=== PATIENT | female | born 1985 | race Caucasian/White ===

== ENCOUNTER 2021-10-09 10:45 | Outpatient (CLI) | payer BC, SELFPAY ==
--- NOTE | 2021-10-09 11:00 | CRLHL7_ITS ---
For Patients: As a result of the Century Cures Act, medical imaging exams and procedure reports are released immediately into your electronic medical record. You may view this report before your referring provider. If you have questions, please contact your health care provider. INDICATION: CHECK GROWTH, SDP, PT ON LOVENOX COMPARISON: 04/09/2021 TECHNIQUE: Real time stock[place] scale imaging of the fetus was performed. FINDINGS: Sonographic imaging demonstrates a single living intrauterine gestation. Fetus demonstrates a regular cardiac rate of 4.8 beats per minute. Fetus has a vertex position. The placenta lies posteriorly. Amniotic fluid volume appears normal and there is a single deepest vertical pocket: 4.8 cm. The estimated weight is 3299gm which lies at the 79th %. BPD 94th percentile. HC 77th percentile. AC 73rd percentile. FL 77th percentile. The HC/AC ratio measures 1.02 range (0.89-1.06). IMPRESSION: Sonographic gestational age 38 weeks 1 day and sonographic due date 10/1921. Sonographic age 9 days ahead of the clinical age. Estimated weight 79th percentile. Abdominal circumference 73rd percentile. Dictated by Jose Robertson MD @ 10/09/2021 12:01:11 PM (Electronically Signed)
== END 2021-10-09 10:46 | disposition home or self-care (01) ==
LOC: US 10:47
PROVIDERS: Visit Provider Obstetrics & Gynecology
DX: Z34.93 Encounter for supervision of normal pregnancy, unspecified, third trimester (principal); Z3A.38 38 weeks gestation of pregnancy
CPT/HCPCS: 76816

== ENCOUNTER 2021-10-09 12:25 | Outpatient (CLI) | payer BC, SELFPAY ==
[2021-10-09 13:18] LABS: Amphetamine Screen Urine Negative (Negative); Barbiturate Screen Urine Negative (Negative); Benzodiazepines Screen Urine Negative (Negative); Cannabinoid Screen Urine Negative (Negative); Cocaine Screen Urine Negative (Negative); Methadone Screen Urine Negative (Negative); Methamphetamines Screen Urine Negative (Negative); Opiate Screen Urine Negative (Negative); Oxycodone Screen Urine Negative (Negative); Phencyclidine Screen Urine Negative (Negative); Tricyclic Antidepressant Urine Negative (Negative)
== END 2021-10-09 12:26 | disposition home or self-care (01) ==
PROVIDERS: Visit Provider Obstetrics & Gynecology
DX: Z34.93 Encounter for supervision of normal pregnancy, unspecified, third trimester (principal); Z3A.36 36 weeks gestation of pregnancy
CPT/HCPCS: 80306; 87081; 87653

== ENCOUNTER 2021-10-16 | Outpatient (CLI) | payer BC, SELFPAY ==
[2021-10-16 00:08] VITALS: PULSE 93; O2SAT 98
[2021-10-16 00:09] VITALS: RESP 18; TEMP 36.5
[2021-10-16 00:13] VITALS: PULSE 89; O2SAT 97
[2021-10-16 00:18] VITALS: BP 107/66; PULSE 92
[2021-10-16 01:02] LABS: Amnisure Rom* Negative
--- NOTE | 2021-10-16 01:41 | PC.OBNST ---
NST Note NST Note Start: 10/16/21 00:13 Freq: ONCE Status: Active Protocol: Document 10/16/21 01:15 MMB (Rec: 10/16/21 01:40 MMB [id number]) NST Note 1 Para (# of births) 0 EDC 10/31/21 Patient Presented with Complaint(s) of Leaking fluid Reactive Yes Appropriate for Gestational Age Yes TIARA Nguyen RNC Date 10/16/21 Reactive Yes Appropriate for Gestational Age Yes TIARA Neely RN Date 10/16/21 OB NST charge Yes Provider Evaluation of EFM Strip: Reactive: [] Appropriate for Gestational Age: [] Comments:
--- OUTSIDE RECORDS SUMMARY | 2021-11-12 11:01 | XMS_ITS | Encounter Summary ---
:1985 Author Organization [place] Address [address] [place] [address] Care Team Providers Name Role Phone Bree Gordillo MD Unavailable Reason for Visit Reason Onset Date Comments Results 05/07/2021 carrier screen Encounter Details Date Type Department Care Team Description 05/07/2021 Telephone [facility] Dee Cohen Resu lts (carrier Maternal GC screen) Medicine Center [address] [place] [address] [address] [place] [phone] (Wo rk) Social History Tobacco Use Types Packs/Day Years Used Date Never Assessed Sex Assigned at Date Recorded Not on file COVID-19 Exposure Response Date Recorded In the last month, have you been in contact with No / Unsure 04/23/2021 12:34 PM FIXED ASSETS ACCOUNTANT someone who was confirmed or suspected to have Coronavirus / COVID-19? documented as of this encounter Miscellaneous Notes Telephone Encounter - Dee Cohen, GC - 05/08/2021 1:53 PM CST May 08, 2021 Rosalinda returned my call to let me know that she would like to wait until her partner's carrier screening results have returned before doing any additional workup related to potential health implicationsfor herself. She may be interested in a genetics referral in the future to discuss the implications on her own health, but would prefer to focus on the potential risks to the at this time. Noreferral will be placed at this time, but I let her know that this option will remain available going forward if she is interested at any point. Dee Cohen [facility] Licensed Genetic Counselor [facility] Maternal Medicine [email or web address] D ASSETS ACCOUNTANT Telephone Encounter - Dee Cohen GC - 05/08/2021 1:36 PM CST May 08, 2021 I left a voicemail for Rosalinda with recommendations from the General Genetics team for follow-up related to Rosalinda's hypophosphatasia variant. Recommendation was made for a genetic counseling visit to discuss the potential implications of this result on Rosalinda's health and recommended lab work. Asked Rosalinda to call me back if she would like me to put in this referral. Dee Cohen [facility] Licensed Genetic Counselor [facility] Maternal Medicine [email or web address] D ASSETS ACCOUNTANT Telephone Encounter - Dee Cohen GC - 05/07/2021 8:52 AM CST May 07, 2021 Called Rosalinda to discuss her expanded carrier screening results. Rosalinda was found to be a carrier for 2 conditions on the panel, described below. Most of the conditions on the carrier screening panel are inherited in an autosomal recessive fashion. Every individual has two copies of the gene that is responsible for this condition, and if someonehas a change or mutation that impacts how one copy of the gene functions, they are called a carrier for the condition. If someone has two copies of the gene that have a harmful change, they are affected with the condition. If two people who are carriers for the same condition have children, there is achance for their children to be affected. Each parent has a 50% chance for passing on their copy of the gene with a mutation, so there is a 25% chance for each to get two copies of the mutation and be affected, a 50% chance for each to be an unaffected carrier, and a 25% chance to be unaffected with two normal copies of the gene. 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 Biallelic pathogenic variants in GALT are associated with galactosemia. Galactosemia is an inherited condition that reduces an individual's ability to metabolize galactose,a simple sugar found in milk. Treatment is available for galactosemia by eliminating milk from the affected individual's diet. It is crucial this diet change occurs as early as possible to reduce the chance of intellectual disability and life-threatening complications. For this reason galactosemia is screened for in the [place] Screening Program. Even with treatment, children can still develop cataracts, speech problems, stunted growth and motor function, and learning disabilities, and most females will eventually develop menstrual irregularities and go through premature menopause. The specific variant Rosalinda carries, called the Haynes variant, is a mild variant. Individuals who inherit one Haynes variant and one disease-causing variant in GALT have a mild form of galactosemia known as Haynes galactosemia. Individuals with Haynes galactosemia can tolerate higher levels of galactose and any infants may be asymptomatic. Individuals with two Haynes variants may have mild enzyme deficiency but are not clinically affected. Reproductive risk for the couple's depends on Chad's carrier status. If Chad were a carrier of a pathogenic variant in GALT, the would have a 1 in 4 chance of having Haynes galactosemia. The lees-ethnic carrier frequency for galactosemia is 1 in 100. 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 Variants in ALPL are associated with hypophosphatasia, a condition that can be inherited in an autosomal recessive or autosomal dominant manner. Hypophosphatasia refers to a spectrum of conditions caused by impaired phosphorus regulation resulting in hypomineralization of bones and teeth. There are several subtypes which differ by severity and age of onset. hypophosphatasia presents with severe skeletal defects, seizures, and respirat ory insufficiency and is generally lethal. Infantile hypophosphatasia presents by 6 months of age and is associated with skeletal abnormalities, fractures, failure to thrive, hypercalcemia, kidney damage, breathing problems, seizures, and developmental delays. Infantile hypophosphatasia can result in in infancy. Childhood hypophosphatasia presents after 6 months and is highly variable, with similar but less severe skeletal manifestations. Adult onset hypophosphatasia may result in stress fractures and early loss of adult dentition. Odontohypophosphatasia is characterized by premature tooth loss without skeletal abnormalities. Autosomal recessive hypophosphatasia is most commonly associated with the earlier and more severe forms. Autosomal dominant forms are generally associated with adult onset hypophosphatasia or odontohypophosphatasia. The reproductive risk for the depends on Chad's carrier status. The lees-ethnic carrier frequency of hypophosphatasia is 1 in 150. If Chad were a carrier of hypophosphatasia, there would be a 1 in 4 chance that the inherited an autosomal recessive form of hypophosphatasia. Rosalinda is at increased risk for features of adult-onset hypophosphatasia. She denies any history of fractures or dental abnormalities. This result can be shared with her dentist and primary care provider. I will also reach out to the pediatrics genetics providers to ask whether any additional follow upis recommended for Rosalinda. 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 Pseudodeficiency alleles are not known to be associated with disease. Individuals with pseudodeficiency alleles can exhibit false positive results on biochemical tests such as screen. However, Krabbe disease and m etachromatic leukodystrophy are not on the [place] screen. Reproductive risk for the above conditions depends on Rosalinda's partner Chad's carrier status. Partner testing is available for Chad. Rosalinda shared that she and Chad would like to proceed with carrier screening for him. I will coordinate a genetic counseling-only visit for Chad. At a minimum, the couple's children will have a 50% chance of being an unaffected carrier of the aforementioned conditions. Genetic counseling for the couple's children is recommended when they are of reproductive age. We discussed that Rosalinda can share this information with relatives if she feels comfortable. Siblingsof Rosalinda would be at a 50% chance of also being a carrier for the same condition. At Rosalinda's request, a copy of her carrier screen report was emailed to . Plan: A genetic counseling only visit will be scheduled for Rosalinda's partner, Ranjana Hanson, caitlynate carrier screening for him. Dee Cohen, [facility] Licensed Genetic Counselor [facility] Maternal Medicine [email or web address] D ASSETS ACCOUNTANT documented in this encounter Plan of Treatment Not on filedocumented as of this encounter Visit Diagnoses Not on filedocumented in this encounter Care Teams Wild Life Manager Relationship Specialty Start Date End Date Bree Gordillo MD Assigned OBGYN Provider 05/05/[address] [place] [address] [address] [place] [address] documented as of this encounter
--- OUTSIDE RECORDS SUMMARY | 2021-11-12 11:01 | XMS_ITS | Encounter Summary ---
:1985 Author Organization [facility] Address [address] [place] [address] Care Team Providers Name Role Phone Bree Gordillo MD Unavailable No Ref-Primary, Physician Primary Care Provider [phone] Reason for Visit Reason Onset Date Comments Results 05/27/2021 partner's carrier sc catia (negative) Encounter Details Date Type Department Care Team Description 05/27/2021 Telephone [facility] Dee Cohen, Resu lts (partner's Maternal GC carrier screen Medicine Center [address] [facility] (negat aqsim)) [place] [address] [place], [place] [address] [place], [place] [phone] (Wo rk) Social History Tobacco Use Types Packs/Day Years Used Date Never Assessed Sex Assigned at Date Recorded Not on file documented as of this encounter Miscellaneous Notes Telephone Encounter - Dee Cohen, GC - 05/27/2021 9:47 AM CST May 27, 2021 Called Rosalinda and left detailed voicemail with her partner, Chad's carrier screen result per plan established at the time of Chad's visit. Consent to communicate form providing permission to share Chad's results with Rosalinda has been signed and is scanned into Chad's chart. Rosalinda previously??underwent [facility] Comprehensive Carrier Screen panel for 289 genes as part of her management and was found to be a carrier for galactosemia (Haynes variant, GALT c.-119_-116del (non-coding)) and hypophosphatasia (ALPL??c.571G>A (p.[id number])). Chad underwent carrier screening for the galactosemia and hypophosphatasia only (GALT and ALPL genes only). Chad's carrier screen returned negative for pathogenic variants in GALT and ALPL. Based on this result, Rosalinda's is at low risk of these conditions. The residual risk that the is affected by galactosemia is 1 in 39,600 and the residual risk that the is affected by autosomal recessive hypophosphatasia is 1 in 11,920. Rosalinda's will have a 50% chance of inheriting her ALPL variant. It is possible that this could be associated with features of adult-onset hypophosphatasia or odontohypophosphatasia. Additionally, we have previously discussed that a referral to hypophosphatasia clinic and additional workup for Rosalinda is available if she wishes to pursue this at any point. No further screening or testing for the couple or a future is indicated. Again, while the chances of the aforementioned conditions are low, because the detection rate of testing is not 100%, if there is ever concern for symptoms in the couple's children in the future, referral to an appropriate practitioner for evaluation is recommended. The couple's children will have a 50% chance of being an unaffected carrier of the aforementioned conditions. Genetic counseling for the couple's children is recommended when they are of reproductive age. A copy of this result will be available in [facility]. Dee Cohen, [facility] Licensed Genetic Counselor [facility] Maternal Medicine [email or web address] documented in this encounter Plan of Treatment Not on filedocumented as of this encounter Visit Diagnoses Not on filedocumented in this encounter Care Teams Manager Forms Relationship Specialty Start Date End Date No Ref-Primary, Physician PCP - General 05/15/21 Bree Gordillo MD Assigned OBGYN Provider 05/05/[address] [facility] [address] [place] [address] documented as of this encounter
--- OUTSIDE RECORDS SUMMARY | 2021-11-12 11:01 | XMS_ITS | Encounter Summary ---
:1985 Author Organization [place] Address [address] [place] [address] Care Team Providers Name Role Phone Bree Gordillo MD Unavailable No Ref-Primary, Physician Primary Care Provider [phone] Encounter Details Date Type Department Care Team Description 06/04/2021 Travel Social History Tobacco Use Types Packs/Day Years Used Date Never Assessed Sex Assigned at Date Recorded Not on file COVID-19 Exposure Response Date Recorded In the last month, have you been in contact with No / Unsure 06/04/2021 10:50 AM CORPORATE DEVELOPMENT OFFICER someone who was confirmed or suspected to have Coronavirus / COVID-19? documented as of this encounter Plan of Treatment Not on filedocumented as of this encounter Visit Diagnoses Not on filedocumented in this encounter Care Teams Molded Candles Wicker Relationship Specialty Start Date End Date No Ref-Primary, Physician PCP - General 05/15/21 Bree Gordillo MD Assigned OBGYN Provider 05/05/[address] [facility] [address] [place], [place] [address] documented as of this encounter
--- OUTSIDE RECORDS SUMMARY | 2021-11-12 11:01 | XMS_ITS | Encounter Summary ---
:1985 Author Organization [place] Address [address] [place] [address] Care Team Providers Name Role Phone Bree Gordillo MD Unavailable No Ref-Primary, Physician Primary Care Provider [phone] Reason for Visit Reason Comments Ultrasound L2-AMA Encounter Details Date Type Department Care Team Description 06/04/2021 Office Visit [facility] Bree Gordillo MD [address] [place] [address] [place], [place] [id number] AMA (advanced maternal Maternal Annel Miranda MD [address] [place] [address] [place] [address] age) primigravida 35+, Medicine Center [facility] (Primary Dx) [address] [place], [place] [address] Social History Tobacco Use Types Packs/Day Years Used Date Never Assessed Sex Assigned at Date Recorded Not on file COVID-19 Exposure Response Date Recorded In the last month, have you been in contact with No / Unsure 06/04/2021 10:50 AM PHILOSOPHY INSTRUCTOR someone who was confirmed or suspected to have Coronavirus / COVID-19? documented as of this encounter Progress Notes Annel Miranda MD - 06/04/2021 11:30 AM CST Please see full imaging report from ViewPoint program under imaging tab. Annel Miranda MD Maternal Medicine OSOPHY INSTRUCTOR documented in this encounter Plan of Treatment Not on filedocumented as of this encounter Visit Diagnoses Diagnosis AMA (advanced maternal age) primigravida 35+, second trimester - Primary documented in this encounter Care Teams Oracle Etl Developer Relationship Specialty Start Date End Date No Ref-Primary, Physician PCP - General 05/15/21 Bree Gordillo MD Assigned OBGYN Provider 05/05/[address] [address] documented as of this encounter
--- OUTSIDE RECORDS SUMMARY | 2021-11-12 11:01 | XMS_ITS | Clinical Summary ---
:1985 Author Organization [place] Address [address] [place] [address] Care Team Providers Name Role Phone Bree Gordillo MD Unavailable No Ref-Primary, Physician Primary Care Provider [phone] Allergies No known active allergies Medications Medication Sig Dispensed Refills Start Date End Date Status Vit-Fe Take 1 tablet by 0 Active Fumarate-FA (PNV mouth daily PLUS MULTIVITAMIN) 27-1 MG TABS per tablet aspirin (ASA) 81 MG Take 81 mg by mouth 0 Active chewable tablet daily calcium-vitamin D Take 1 tablet by 0 Active 500-125 MG-UNIT TABS mouth 2 times daily enoxaparin Inject 0.4 mLs (40 24 mL 3 04/23/2021 Active ANTICOAGULANT mg) Subcutaneous (LOVENOX) 40 daily MG/0.4ML syringeIndications: related condition, antepartum, Personal history of DVT (deep vein thrombosis) Social History Tobacco Use Types Packs/Day Years Used Date Never Assessed Estimated Date of Delivery Comments Yes 10/31/2021 Based on Ultrasound Sex Assigned at Date Recorded Not on file Plan of Treatment Health Maintenance Due Date Last Done Comments ADVANCE CARE PLANNING 1985 ANNUAL REVIEW OF HM ORDERS 1985 PREVENTIVE CARE VISIT 1985 HIV SCREENING 2000 HEPATITIS C SCREENING 09/01/2003 PAP 2006 DTAP/TDAP/TD IMMUNIZATION 07/06/2019 07/05/2009 (2 - Td or Tdap) PHQ-2 (once per calendar 04/06/2021 year) MATERNAL SCREENING 05/09/2021 OBGCT (OB) 07/11/2021 REPEAT ANTIBODY SCREEN (OB) 08/08/2021 GROUP B STREP SCREENING 10/03/2021 INFLUENZA VACCINE Completed 01/17/2021, 01/07/2020, 03/26/2009, Additional history exists COVID-19 Vaccine Completed 04/14/2021, 06/21/2020, 05/25/2020 HEPATITIS B IMMUNIZATION Aged Out No long er eligible based on patient 's age to complete this topic IPV IMMUNIZATION Aged Out No longer eligi ble based on patient 's age to complete this topic MENINGITIS IMMUNIZATION Aged Out No longe r eligible based on patient 's age to complete this topic Pneumococcal Vaccine: Aged Out No longer eligible Pediatrics (0 to 5 Years) based on patient's age and At-Risk Patients (6 to to co mplete this topic 64 Years) Insurance Payer Benefit Plan / Subscriber ID Effective Dates Phone Addre ss Type Group [place] [id number] 2021-Prese [phone] [address] [address] Indemnity nt 0 [place] [address] Care Teams Supervisor Elementary Education Relationship Specialty Start Date End Date No Ref-Primary, Physician PCP - General 05/15/21 Bree Gordillo MD Assigned OBGYN Provider 05/05/[address] [place] [address] [place], [place] [address]
--- OUTSIDE RECORDS SUMMARY | 2021-11-12 11:01 | XMS_ITS | Encounter Summary ---
:1985 Author Organization [place] Address [address] [place] [address]. [place] [address] Care Team Providers Name Role Phone Bree Gordillo MD Unavailable Encounter Details Date Type Department Care Team Description 05/07/2021 Orders Only [facility] Lamberto, Screening for genetic Explorer Pediatric MD Klarissa disease carrier Specialty Clinic [address] [place] [address] status (Primary Dx) [facility] [place], [place] [address] [place] [address] [place] [address] Social History Tobacco Use Types Packs/Day Years Used Date Never Assessed Sex Assigned at Date Recorded Not on file COVID-19 Exposure Response Date Recorded In the last month, have you been in contact with No / Unsure 04/23/2021 12:34 PM SUPERVISOR SHEARING someone who was confirmed or suspected to have Coronavirus / COVID-19? documented as of this encounter Plan of Treatment Not on filedocumented as of this encounter Visit Diagnoses Diagnosis Screening for genetic disease carrier st [facility] - Primary documented in this encounter Care Teams Hot Knife Cutter Relationship Specialty Start Date End Date Bree Gordillo MD Assigned OBGYN Provider 05/05/[address] [place] [address] [place] [address] documented as of this encounter
--- OUTSIDE RECORDS SUMMARY | 2021-11-12 11:01 | XMS_ITS | Encounter Summary ---
:1985 Author Organization [place] Address [address] [place] [address]. [place] [address] Care Team Providers Name Role Phone Unavailable Primary Care Provider Unavailable Encounter Details Date Type Department Care Team Description 04/23/2021 [facility] Alonso [facility] Latisha [address] [place] [address] screening encounter; [facility] Emily Erickson MD [address] [place] [address] Primigravida of advanced maternal age in first trimester; [address] [place] [address] related [place], [place] [address] Social History Tobacco Use Types Packs/Day Years Used Date Never Assessed Sex Assigned at Date Recorded Not on file COVID-19 Exposure Response Date Recorded In the last month, have you been in contact with No / Unsure 04/23/2021 12:34 PM DEGREASER OPERATOR someone who was confirmed or suspected to have Coronavirus / COVID-19? documented as of this encounter Plan of Treatment Not on filedocumented as of this encounter Procedures Procedure Name Priority Date/Time Associated Comments Diagnosis INVITAE CARRIER Routine 04/23/2021 3:03 PM screening Results for this SCREENING DEGREASER OPERATOR encounter procedure are in Primigravida of the results advanced maternal section. age in first trimester CARDIOLIPIN ALPA IGG Routine 04/23/2021 3:03 PM relat ed Results for this AND IGM DEGREASER OPERATOR condition, procedure are i n antepartum the results section. BETA 2 GLYCOPROTEIN 1 Routine 04/23/2021 3:03 PM rel ated Results for this ANTIBODY IGM DEGREASER OPERATOR condition, procedure are i n antepartum the results section. BETA 2 GLYCOPROTEIN 1 Routine 04/23/2021 3:03 PM rel ated Results for this ANTIBODY IGG DEGREASER OPERATOR condition, procedure are i n antepartum the results section. LUPUS ANTICOAGULANT Routine 04/23/2021 3:03 PM relat ed Results for this PANEL DEGREASER OPERATOR condition, procedure are i n antepartum the results section. documented in this encounter Results Beta 2 Glycoprotein 1 Antibody IgG (04/23/2021 3:03 PM DEGREASER OPERATOR) athologist Signature Beta 2 1.2 <7.0 U/mL 04/24/2021 [facility] Glycoprotein 1 4:17 PM DEGREASER OPERATOR CORE/PROT/END Antibody IgG O Comment: Negative Specimen Anatomical Collection Method / Collection Time Recei corey Time (Source) Location / Volume Laterality Blood STRUCTURE OF LEFT Venipuncture / 04/23/2021 3:03 04/23 3:27 UPPER LIMB / Unknown PM DEGREASER OPERATOR PM DEGREASER OPERATOR Unknown Bree Gordillo MD LAB - BLOOD ORDERABLES Performing Organization Address City/State/ZIP Code Phon e Number SPECIALTY CORE/PROT/ENDO [facility] [place] [address] Core/Prot/Endo [address] [facility] [address] [facility], Room 3-580 Beta 2 Glycoprotein 1 Antibody IgM (04/23/2021 3:03 PM DEGREASER OPERATOR) athologist Signature Beta 2 <2.4 <7.0 U/mL 04/24/2021 [facility] Glycoprotein 1 4:14 PM DEGREASER OPERATOR CORE/PROT/END Antibody IgM O Comment: Negative Specimen Anatomical Collection Method / Collection Time Recei corey Time (Source) Location / Volume Laterality Blood STRUCTURE OF LEFT Venipuncture / 04/23/2021 3:03 04/23 3:27 UPPER LIMB / Unknown PM DEGREASER OPERATOR PM DEGREASER OPERATOR Unknown Bree Gordillo MD LAB - BLOOD ORDERABLES Performing Organization Address City/State/ZIP Code Phon e Number SPECIALTY CORE/PROT/ENDO [facility] [place] [address] Core/Prot/Endo [address] [facility] [address] Building, Room 3-580 Cardiolipin Alpa IgG and IgM (04/23/2021 3:03 PM DEGREASER OPERATOR) [facility] Method Time Signature Cardiolipin Alpa <2.0 <10.0 04/24/2021 [facility] IgG Instrument GPL-U/mL 4:17 PM DEGREASER OPERATOR CORE/PROT/END Value O Cardiolipin Negative Negative 04/24/2021 [facility] Antibody IgG 4:17 PM DEGREASER OPERATOR CORE/PROT/END O Cardiolipin Alpa 6.1 <10.0 04/24/2021 [facility] IgM Instrument MPL-U/mL 4:17 PM DEGREASER OPERATOR CORE/PROT/END Value O Cardiolipin Negative Negative 04/24/2021 [facility] Antibody IgM 4:17 PM DEGREASER OPERATOR CORE/PROT/END O Specimen Anatomical Collection Method / Collection Time Recei corey Time (Source) Location / Volume Laterality Blood STRUCTURE OF LEFT Venipuncture / 04/23/2021 3:03 04/23 3:27 UPPER LIMB / Unknown PM DEGREASER OPERATOR PM DEGREASER OPERATOR Unknown Bree Gordillo MD LAB - BLOOD ORDERABLES Performing Organization Address City/State/ZIP Code Phon e Number [facility] CORE/PROT/ENDO [facility] [place] [place] [address] Core/Prot/Endo [address] [facility] [address] Building, Room 3-580 Lupus Anticoagulant Panel (04/23/2021 3:03 PM DEGREASER OPERATOR) [facility] Method Time Signature INR 1.02 0.85 - [facility] 1.15 2 2:34 PM COAGULATION DEGREASER OPERATOR Thrombin Time 15.3 13.0 - [facility] 19.0 2 2:34 PM COAGULATION Seconds DEGREASER OPERATOR PTT Ratio 0.92 <1.21 [facility] 2 2:34 PM COAGULATION DEGREASER OPERATOR DRVVT Screen 1.06 <1.21 [facility] Ratio 2 2:34 PM COAGULATION DEGREASER OPERATOR Lupus Result Negative Negative [facility] 2 2:34 PM COAGULATION DEGREASER OPERATOR Lupus The INR is normal. [facility] Interpretation APTT ratio is normal. ?? 2 2:34 PM COAGULATION DRVVT Screen ratio is normal. DEGREASER OPERATOR Thrombin time is normal. NEGATIVE TEST; A LUPUS ANTIC OAGULANT WAS NOT DETECTED IN THIS SPECIMEN WITHIN THE LIMITS OF THE TESTING REPERTOIRE. If the clinical picture is s trongly suggestive of an antiphospholipid syndrome, recommend anticardiolipin and unlz-9-izdnqddixing (IgG and IgM) antibody tests. Graciela Kim MD, PhD Physicians Specimen Anatomical Collection Method / Collection Time Recei corey Time (Source) Location / Volume Laterality Blood STRUCTURE OF LEFT Venipuncture / 04/23/2021 3:03 04/23 3:27 UPPER LIMB / Unknown PM DEGREASER OPERATOR PM DEGREASER OPERATOR Unknown Bree Gordillo MD LAB - BLOOD ORDERABLES Performing Organization Address City/State/ZIP Code Phon e Number [facility] [place] [address] Coagulation [address] [facility] [address] Building, Room 3-580 (ABNORMAL) [facility] Screening (04/23/2021 3:03 PM DEGREASER OPERATOR) [facility] gist Method Time Signature See Scanned See scanned MACIEL 05/06/2021 INVITAE Result result. (A) 3:57 PM DEGREASER OPERATOR Specimen Anatomical Collection Method / Collection Time Recei corey Time (Source) Location / Volume Laterality Blood STRUCTURE OF LEFT Venipuncture / 04/23/2021 3:03 04/23 3:27 UPPER LIMB / Unknown PM DEGREASER OPERATOR PM DEGREASER OPERATOR Unknown Narrative This result has an attachment that is no t available. Bree Gordillo MD LAB - BLOOD ORDERABLES Performing Organization Address City/State/ZIP Code Phon e Number INVITAE [address], [place] [address] documented in this encounter Visit Diagnoses Diagnosis screening encounter Unspecified screening Primigravida of advanced maternal age in first trimester related condition, antepartum documented in this encounter
--- OUTSIDE RECORDS SUMMARY | 2021-11-12 11:01 | XMS_ITS | Encounter Summary ---
:1985 Author Organization [place] Address [address] [place] [address] Care Team Providers Name Role Phone Unavailable Primary Care Provider Unavailable Encounter Details Date Type Department Care Team Description 04/23/2021 Travel Social History Tobacco Use Types Packs/Day Years Used Date Never Assessed Sex Assigned at Date Recorded Not on file COVID-19 Exposure Response Date Recorded In the last month, have you been in contact with No / Unsure 04/23/2021 12:34 PM SPACE OPERATIONS OFFICER someone who was confirmed or suspected to have Coronavirus / COVID-19? documented as of this encounter Plan of Treatment Not on filedocumented as of this encounter Visit Diagnoses Not on filedocumented in this encounter
--- OUTSIDE RECORDS SUMMARY | 2021-11-12 11:01 | XMS_ITS | Encounter Summary ---
:1985 Author Organization [place] Address [address] [place] [address] Care Team Providers Name Role Phone Bree Gordillo MD Unavailable No Ref-Primary, Physician Primary Care Provider [phone] Reason for Referral Diagnostic Imaging Ultrasound (Routine) - Pending Review Specialty Diagnoses / Procedures Referred By Contact Refer red To Contact Diagnoses related condition, antepartum Bree Gordillo MD Procedures [facility] US Comprehensive Single [address] [place], [place] [address] Referral ID Status Reason Start Date Expiration Date Visits V isits Requested Authorized [id number] Pending 04/23/2021 04/23/2022 1 1 Review L JUSTICE Reason for Visit Diagnostic Imaging Ultrasound (Routine) - Pending Review Specialty Diagnoses / Procedures Referred By Contact Refer red To Contact Diagnoses related condition, antepartum Bree Gordillo MD Procedures [facility] US Comprehensive Single [address] [place], [place] [address] Referral ID Status Reason Start Date Expiration Date Visits V isits Requested Authorized [id number] Pending 04/23/2021 04/23/2022 1 1 Review Encounter Details Date Type Department Care Team Description 06/04/2021 Hospital Encounter [facility] Lacey Gordillo MD [address] [place], [place] [address] related Maternal Annel Miranda MD [address] [place] [address] condition, Medicine Center antepartum [facility] [address] [place] [address] Social History Tobacco Use Types Packs/Day Years Used Date Never Assessed Sex Assigned at Date Recorded Not on file COVID-19 Exposure Response Date Recorded In the last month, have you been in contact with No / Unsure 06/04/2021 10:50 AM TRIAL JUSTICE someone who was confirmed or suspected to have Coronavirus / COVID-19? documented as of this encounter Medications at Time of Discharge Medication Sig Dispensed Refills Start Date End Date aspirin (ASA) 81 MG Take 81 mg by mouth 0 chewable tablet daily calcium-vitamin D Take 1 tablet by mouth 0 500-125 MG-UNIT TABS 2 times daily enoxaparin Inject 0.4 mLs (40 mg) 24 mL 3 04/23/2021 ANTICOAGULANT (LOVENOX) Subcutaneous daily 40 MG/0.4ML syringeIndications: related condition, antepartum, Personal history of DVT (deep vein thrombosis) Vit-Fe Take 1 tablet by mouth 0 Fumarate-FA (PNV daily PLUS MULTIVITAMIN) 27-1 MG TABS per tablet documented as of this encounter Plan of Treatment Not on filedocumented as of this encounter Procedures Procedure Name Priority Date/Time Associated Comments Diagnosis [facility] US COMPREHENSIVE Routine 06/04/2021 11:31 relate d Results for this SINGLE AM TRIAL JUSTICE condition, procedure are i n antepartum the results section. documented in this encounter Results [facility] US Comprehensive Single (06/04/2021 11:31 AM TRIAL JUSTICE) Anatomical Region Laterality Modality Ultrasound Specimen (Source) Anatomical Collection Method Collection Time Re ceived Time Location / / Volume Laterality 06/04/2021 10:54 AM TRIAL JUSTICE Impressions 06/04/2021 11:47 AM TRIAL JUSTICE IMPRESSION 1) Leary intrauterine at 1 8w 5d gestational age by 10 week 5 day US. 2) None of the anomalies commonly detect ed by ultrasound were evident in the detailed anatomic survey as described above. No soft markers of aneuploidy are identified. 3) Growth parameters and estimated weight were consistent with established dates. 4) The amniotic fluid volume appeared no rmal. 5) Normal activity for gestational age. 6) On transabdominal imaging the cervix appears long and closed. Narrative 06/04/2021 11:47 AM TRIAL JUSTICE Comprehensive Pat. Name: TRUDI CHANDLER Study Date: 04/2021 10:54am Pat. NO: [id number] Referring ??: ADIN KHAN Site: [facility] Head Soft Sugar Operator: Yanci Abarca RD MS : 1985 Age: 35 INDICATION Advanced Maternal Age. H/o DVT on michelle x. METHOD Transabdominal ultrasound examination. V iew: Sufficient Leary . Number of fetuses: 1 DATING ? Date ?Details ?Gest. age ?JN LMP ?02/04/2021 ? 17 w + 1 d ? 11/11/2021 Prior assessment ? 1/ 07/2021 ?GA: 10 w + 5 d ? 18 w + 5 d ? 10/31/2021 U/S ? 06/04/2021 ?based upon AC, BPD, Femur, HC ? 18 w + 6 d ? 10/30/2021 Assigned dating ?Dating performed on 04/23/2021, based on the prior assessment (on 04/09/2021) ?18 w + 5 d ? 10/31/2021 GENERAL EVALUATION Cardiac activity present. FHR 148 bpm. movements present. Presentation cephalic. Placenta Posterior, No Previa, > 2 cm fr om internal os. Umbilical cord 3 vessel cord. Amniotic fluid normal MVP, MVP 4.4 cm. BIOMETRY Main Biometry: BPD ?43.4 ?mm ? 19w 1d ?Hadlock OFD ?55.5 ?mm ? 18w 3d ?Nicolaides HC ?159.9 ?mm ?18w 6d ?Hadlock Cerebellum tr ?19.3 ? mm ?18w 5d ?Nicolaides AC ?132.8 ?mm ?18w 5d ?48% ?Hadlock Femur ?27.9 ? mm ?18w 4d ?Hadlock Humerus ?27.2 ?mm ? 18w 5d ?Geeta Weight Calculation: EFW ? 253 ? g ? 43% ?Hadlock EFW (lb,oz) ? 0 lb 9 ?oz EFW by ?Hadlock ([id number]) Head / Face / Neck Biometry: Dry Cell Sealer ? 6.8 ? mm CM ?4.9 ? mm Nasal bone ? 5.0 ? mm Nuchal fold ? 3.5 ? mm ANATOMY The following structures appear normal: Head / Neck ? Cranium. Head size. Head shape. Lateral ventricles. Choroid plexus. Midline falx. Cavum septi pellucidi. Cerebellum. Cisterna magna. ? Parenchyma. Thalami. Vermis. ? Neck. Nuchal fold. Face ? Lips. Profile. Nose. Maxilla. Mandible. Orbits. Lens. Heart / Thorax ?4-chamber view. RVOT view. LVOT view. Situs. Aortic arch view. Bicaval view. Ductal arch view. Superior vena cava. Inferior vena cava. 3-vessel ? view. 4-uupegs-tlytpvs view. Cardiac position. Cardiac size. Cardiac rhythm. ? Right lung. Left lung. Diaphragm. Abdomen ? Abdominal wall. Cord insertion. Stomach. Kidneys. Bladder. Liver. Bowel. Genitals. Spine ?Cervical spine. Thoracic spine. Lumbar spine. Sacral spine. Extremities / Skeleton ?Rig ht arm. Right hand. Left arm. Left hand. Right leg. Right foot. Left leg. Left foot. Gender: male. MATERNAL STRUCTURES Cervix ?Visualized ? Appearance: Appears Closed ? Cervical length 39.0 mm Right Ovary ?Visualized Left Ovary ?Visualized RECOMMENDATION Thank-you for referring your patient for a comprehensive ultrasound. She is seen by MFM due to advanced maternal age. She had a consultation with us on 04/23/21 for history of DVT and was initiated on prop hylactic dosing lovenox. She is doing well on this medication although she did get a small subcutaneous hematoma on the left with one injection. She had cell-free DNA screening showing the expected amounts of chromosomes 21, 18 & 13. I discussed the findings on today's ultr asound with the patient. I reviewed the limitations of ultrasound both in detecting aneuploidy and structural abnormalities. Ultrasound can routinely detect 80-90% of structura l abnormalities. No further MFM follow up is indicated at this time. I recommend planned induction at 39 weeks with temporary hold of lovenox for 24 hours prior to delivery. 6 weeks of lovenox is also indicated. Pl ease see consultation on 04/23/21 for further details. Further ultrasound studies as clinically indicated. Return to primary provider for continued care. If you have questions regarding today's evaluation or if we can be of further service, please contact the Maternal- Medicine Center. Procedure Note Annel Miranda MD - 06/04/2021Form atting of this note might be different from the original. Comprehensive Pat. Name:Delroy CHANDLER Date:2021 10:54am Pat. NO: [id number] MD:VIVI KHAN Site:[facility]onographer:Yanci Abarca RDMS :1985Age:35 INDICATION Advanced Maternal Age. H/o DVT on loveno x. METHOD Transabdominal ultrasound examination. V iew: Sufficient Leary . Number of fetuses: 1 DATING Date Details Gest. age JN LMP 02/04/2021 17 w + 1 d 11/11/2021 Prior assessment 04/09/2021 GA: 10 w + 5 d 18 w + 5 d 10/31/2021 U/S 06/04/2021 based upon AC, BPD, Femur, HC 18 w + 6 d 10/30/2021 Assigned dating Dating performed on 04/06, based on the prior assessment (on 04/09/2021) 18 w + 5 d 10/31/2021 GENERAL EVALUATION Cardiac activity present. FHR 148 bpm. movements present. Presentation cephalic. Placenta Posterior, No Previa, > 2 cm fr om internal os. Umbilical cord 3 vessel cord. Amniotic fluid normal MVP, MVP 4.4 cm. BIOMETRY Main Biometry: BPD 43.4 mm 19w 1d Hadlock OFD 55.5 mm 18w 3d Nicolaides HC 159.9 mm 18w 6d Hadlock Cerebellum tr 19.3 mm 18w 5d Nicolaides AC 132.8 mm 18w 5d 48% Hadlock Femur 27.9 mm 18w 4d Hadlock Humerus 27.2 mm 18w 5d Geeta Weight Calculation: EFW 253 g 43% Hadlock EFW (lb,oz) 0 lb 9 oz EFW by Hadlock ([id number]) Head / Face / Neck Biometry: Dry Cell Sealer 6.8 mm CM 4.9 mm Nasal bone 5.0 mm Nuchal fold 3.5 mm ANATOMY The following structures appear normal: Head / Neck Cranium. Head size. Head sha pe. Lateral ventricles. Choroid plexus. Midline falx. Cavum septi pellucidi. Cerebellum. Cisterna magna. Parenchyma. Thalami. Vermis. Neck. Nuchal fold. Face Lips. Profile. Nose. Maxilla. Dina ble. Orbits. Lens. Heart / Thorax 4-chamber view. RVOT view . LVOT view. Situs. Aortic arch view. Bicaval view. Ductal arch view. Superior vena cava. Inferior vena cava. 3-vessel view. 6-ezqdll-famidvj view. Cardiac po sition. Cardiac size. Cardiac rhythm. Right lung. Left lung. Diaphragm. Abdomen Abdominal wall. Cord insertion. Stomach. Kidneys. Bladder. Liver. Bowel. Genitals. Spine Cervical spine. Thoracic spine. Fanny mbar spine. Sacral spine. Extremities / Skeleton Right arm. Right hand. Left arm. Left hand. Right leg. Right foot. Left leg. Left foot. Gender: male. MATERNAL STRUCTURES Cervix Visualized Appearance: Appears Closed Cervical length 39.0 mm Right Ovary Visualized Left Ovary Visualized RECOMMENDATION Thank-you for referring your patient for a comprehensive ultrasound. She is seen by M due to advanced maternal age. She had a consultation with us on 04/23/21 for history of DVT and was initiated on prop hylactic dosing lovenox. She is doing well on this medication although she did get a small subcutaneous hematoma on the left with one injection. She had cell-free DNA screening showing the expected amounts of chromosomes 21, 18 & 13. I discussed the findings on today's ultr asound with the patient. I reviewed the limitations of ultrasound both in detecting aneuploidy and structural abnormalities. Ultrasound can routinely detect 80-90% of structura l abnormalities. No further M follow up is indicated at this time. I recommend planned induction at 39 weeks with temporary hold of lovenox for 24 hours prior to delivery. 6 weeks of lovenox is also indicated. Pl ease see consultation on 04/23/21 for further details. Further ultrasound studies as clinically indicated. Return to primary provider for continued care. If you have questions regarding today's evaluation or if we can be of further service, please contact the Maternal- Medicine Center. IMPRESSION 1) Leary intrauterine at 1 8w 5d gestational age by 10 week 5 day US. 2) None of the anomalies commonly detect ed by ultrasound were evident in the detailed anatomic survey as described above. No soft markers of aneuploidy are identified. 3) Growth parameters and estimated weight were consistent with established dates. 4) The amniotic fluid volume appeared no rmal. 5) Normal activity for gestational age. 6) On transabdominal imaging the cervix appears long and closed. Bree Gordillo MD [facility] US ORDERABLES documented in this encounter Visit Diagnoses Diagnosis related condition, antepartum documented in this encounter Care Teams Candy Department Manager Relationship Specialty Start Date End Date No Ref-Primary, Physician PCP - General 05/15/21 Bree Gordillo MD Assigned OBGYN Provider 05/05/[address] [id number] documented as of this encounter
--- OUTSIDE RECORDS SUMMARY | 2021-11-12 11:01 | XMS_ITS | Encounter Summary ---
:1985 Author Organization [place] Address [address] [place] [address]. [place] [address] Care Team Providers Name Role Phone Dee Cohen Unavailable Encounter Details Date Type Department Care Team Description 04/29/2021 Telephone [facility] Maternal Alana Miles MD Medicine Center [address] [place] [address] [address] [place], [place] [address] [phone] Social History Tobacco Use Types Packs/Day Years Used Date Never Assessed Sex Assigned at Date Recorded Not on file COVID-19 Exposure Response Date Recorded In the last month, have you been in contact with No / Unsure 04/23/2021 12:34 PM MOTORBOAT OPERATOR someone who was confirmed or suspected to have Coronavirus / COVID-19? documented as of this encounter Miscellaneous Notes Telephone Encounter - Alana Wills MD - 04/29/2021 11:35 AM CST 04/29/2021 11:38 AM Phoned patient to discuss negative APAS evaluation. Anticardiolipin IgM had previously been weak positive but is now negative. Continue Lovenox as previously prescribed, 40 mg daily.All questions answered. She is feeling well without concerns. Alana Wills MD Maternal- Medicine Fellow, PGY5 04/29/2021 11:39 AM RBOAT OPERATOR documented in this encounter Plan of Treatment Not on filedocumented as of this encounter Visit Diagnoses Not on filedocumented in this encounter Care Teams Graduate Intern Relationship Specialty Start Date End Date Dee Cohen GC Assigned OBGYN Provider 04/28/21 05/04/[address] [address] documented as of this encounter
--- OUTSIDE RECORDS SUMMARY | 2021-11-12 11:02 | XMS_ITS | Encounter Summary ---
:1985 Author Organization [place] Address [address] [place] [address] Care Team Providers Name Role Phone Unavailable Primary Care Provider Unavailable Reason for Referral Consultation (Routine: Next available opening) - Pending Review Specialty Diagnoses / Procedures Referred By Contact Refer red To Contact Diagnoses related condition Emily Roy CNM [facility] [address] [place] [address] Referral ID Status Reason Start Date Expiration Date Visits V isits Requested Authorized [id number] Pending 04/16/2021 04/16/2022 1 1 Review ING MACHINE OPERATOR Encounter Details Date Type Department Care Team Description 04/16/2021 Transcribe Orders [facility] Emily Roy P regnancy related Maternal CNM condition (Primary Medicine Center [facility] Dx) [facility] [address] [facility] [address] [facility] [address] [place] [address] [phone] Social History Tobacco Use Types Packs/Day Years Used Date Never Assessed Sex Assigned at Date Recorded Not on file COVID-19 Exposure Response Date Recorded In the last month, have you been in contact with Yes 04/15/2021 9:45 PM LIDDING MACHINE OPERATOR someone who was confirmed or suspected to have Coronavirus / COVID-19? documented as of this encounter Plan of Treatment Scheduled Referrals Name Type Priority Associated Diagnoses Order S chedule [facility] Ctr Referral Routine: Next related Expe cted: Referral - available opening condition 04/16/2021 (Approximate), Expires: 10/13/2021 documented as of this encounter Visit Diagnoses Diagnosis related condition - Primary Unspecified complication of , u nspecified as to episode of care documented in this encounter
--- OUTSIDE RECORDS SUMMARY | 2021-11-12 11:02 | XMS_ITS | Encounter Summary ---
:1985 Author Organization [facility] Address [address] [place] [id number] Care Team Providers Name Role Phone Unavailable Primary Care Provider Unavailable Reason for Visit Reason Comments Genetic Counseling AMA Consultation (Routine: Next available opening) - Pending Review Specialty Diagnoses / Procedures Referred By Contact Refer red To Contact Diagnoses History of deep venous thrombosis Shasta Gupta [address] [address] [place], [place] [address] Referral ID Status Reason Start Date Expiration Date Visits V isits Requested Authorized [id number] Pending 04/18/2021 04/18/2022 1 1 Review Encounter Details Date Type Department Care Team Description 04/23/2021 Office Visit [facility] Shasta Gupta [address] [facility] [address] [place], [place] [address] Primigravida of advanced maternal age in first trimester (Primary Dx); Maternal Bree Gordillo MD [address] [facility] [address] [place], [place] [id number] History of deep venous thrombosis; Medicine Center Dee Cohen GC [address] [facility] [address] [place] [address] screening encounter [place] [address] [place], [place] [address] Social History Tobacco Use Types Packs/Day Years Used Date Never Assessed Sex Assigned at Date Recorded Not on file COVID-19 Exposure Response Date Recorded In the last month, have you been in contact with No / Unsure 04/23/2021 12:[address]GE someone who was confirmed or suspected to have Coronavirus / COVID-19? documented as of this encounter Progress Notes Dee Cohen, KEVIN - 04/23/2021 12:45 PM CST [facility] Medicine [place] Genetic Counseling Consult Patient: Rosalinda Souza Date of : 1985 Date of Service: 04/23/21 Rosalinda Souza was seen at [facility] for genetic consultation to discuss the options for screening and testing for chromosome abnormalities. The indicationfor genetic counseling is advanced maternal age. Rosalinda was unaccompanied to the appointment today. Impression/Plan: 1. Rosalinda had a cell-free DNA test earlier in , which was normal. 2. Rosalinda had a blood draw for expanded carrier screening (Comprehensive Carrier Screen, 289 conditions, through [facility]). Results are expected within 14-21 days, and will be available in [facility]. We will contact her to discuss the results, and a copy will be forwarded to the office of the referring OB provider. Rosalinda provided verbal permission to leave a detailed voicemail with results. We will planto coordinate carrier screening for her partner if indicated based on her results. Consent to communicate form for her partner, Chad, was completed in- person and is scanned into her chart. 3. Rosalinda had a nuchal translucency ultrasound today, on which nuchal translucency measurement was within the normal range and nasal bone was visualized. Please see ultrasound report from today for details. 4. Rosalinda also had a consultation with [facility] physician today due to her history of DVT. Please see [facility] consult note for details. 5. Maternal serum AFP (single marker screen) is recommended after 15 weeks to screen for open neuraltube defects. A quad screen should not be performed. 6. An 18-20 week comprehensive ultrasound is standard of care for all women 35 or older at delivery. History: /Parity: Age at Delivery: 36 year old JN: 10/31/2021, by Ultrasound Gestational Age: 12w5d ??? No significant complications or exposures were reported in the current . 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 She initially presented to the ED 06/2020 and was diagnosed with rightpopliteal and peroneal DVT and started on Xarelto and advised to stop OCP. Repeat ultrasound 08/2020 revealed resolution of the popliteal and peroneal DVT but revealed a posterior tibial vein clot not pr eviously seen. She continued Xarelto until 10/2020. Please see [facility] consult note for additional details and recommendations. Family History: A three-generation pedigree was obtained, and is scanned under the ???Media?? tab. The following significant findings were reported by Rosalinda: ??? The father of the , Chad, is 40 and healthy. ??? Rosalinda's brother has epilepsy, which was diagnosed in his 20's. Her nephew (sister's son) also has epilepsy and began having seizures in childhood. Her nephew has had some genetic testing, all of which was negative to Rosalinda's knowledge. o Seizure disorders including epilepsy can be isolated or part of a broader genetic syndrome. When isolated, seizure disorders often result from multiple interacting genetic and environmental factors and follow a multifactorial pattern of inheritance. Given there is thought to be a genetic component and this is a second degree relative to the , the risk for recurrence may be increased in thecurrent , however there is no test to determine if a fetus will develop a seizure disorder. Encouraged sharing this information with their delivery table operator and awareness of early signs and symptoms. ??? Rosalinda reports that her maternal grandfather had a blood clot in his 80's after surgery. There isno other known family history of blood clots. Otherwise, the reported family history is negative for multiple miscarriages, stillbirths, defects, intellectual disability, known genetic conditions, and consanguinity. Carrier Screening: The patient reports that she and the father of the have ancestry: ?? Cystic fibrosis is an autosomal recessive genetic condition that occurs with increased frequency in individuals of ancestry and carrier screening for this condition is available. In addition, screening in the [facility] includes cystic fibrosis. The patient reports that the father of the has Mediterranean (Urdu) ancestry: ?? The hemoglobinopathies are a group of genetic blood diseases that occur with increased frequency in individuals of Mediterranean ancestry and carrier screening for these conditions is available. In addition, screening in the [facility] includes many of the hemoglobinopathies. Expanded carrier screening for mutations in a large panel of genes associated with autosomal recessive conditions including cystic fibrosis, thalassemias, hearing loss, spinal muscular atrophy, and others, is now available. We also reviewed that expanded carrier screening can assess for common X-linked recessive disorders such as Fragile X syndrome. We reviewed availability of expanded carrier screening through [facility] for up to 289 conditions. If both parents are carriers of an autosomal recessive condition, there are three possible outcomes for each /child: 25% unaffected, 50% carrier, and 25% affected. The only method to determine the outcome or diagnosis the condition in a is an invasive testing option such as an amniocentesis. We discussed that expanded carrier screening is designed to identify carrier status for conditions that are primarily childhood or adolescent onset. Expanded carrier screening does not evaluate for adult-onset conditions such as hereditary cancer syndromes, dementia/ Alzheimer's disease, or cardiovascular disease risk factors. Additionally, expanded carrier screening is not comprehensive for all known genetic diseases or inherited conditions. This is a screening test, and residual carrier status risk figures will be provided to the patient after results become available. Carrier screening is not meant to diagnose the patient with a condition, and generally carriers are asymptomatic. However, certain genes may confer increased risks for various health concerns in carriers (for example, but not limited to: JUSTA, FMR1, DMD). The patient elected to pursue expanded carrier screening via [facility] today (Comprehensive Carrier Screen, 289 conditions, through [facility] lab). Results are expected within 14-21 days, and will be available in [facility]. We will contact her to discuss the results, and a copy will be forwarded to the office of the referring OB provider. Rosalinda provided verbal permission to leave a detailed voicemail with results. We will plan to coordinate carrier screening for her partner if indicated based on her results.Consent to communicate form for her partner, Chad, was completed in-person and is scanned into her chart. All of Rosalinda's questions were addressed to their apparent satisfaction today. Risk Assessment for Chromosome Conditions: We explained that the risk for chromosome abnormalities increases with maternal age. We discussed specific features of common chromosome abnormalities, including Down syndrome, trisomy 13, trisomy 18, and sex chromosome trisomies. ??? - At age 36 at midtrimester, the risk to have a baby with Down syndrome is 1 in 216. ??? - At age 36 at midtrimester, the risk to have a baby with any chromosome abnormality is 1 in 105. ??? Rosalinda had maternal serum screening earlier in . Non-invasive Testing (NIPT) ??? Maternal plasma cell-free DNA testing ??? Screens for trisomy 21, trisomy 13, trisomy 18, and sex chromosome aneuploidy ??? Rosalinda had a [id number] test earlier in ; we reviewed the results today, which are normal for chromosome 13, chromosome 18, chromosome 21, and sex chromosomes (no aneuploidy detected) ??? Given the accuracy of this test, these results greatly decrease the chance for certain chromosome abnormalities ??? We discussed the limitations of normal NIPT results Testing Options: We discussed the following options: Chorionic villus sampling (CVS) ?? Invasive procedure typically performed in the first trimester by which placental villi are obtained for the purpose of chromosome analysis and/or other genetic analysis ?? Diagnostic results; >99% sensitivity for chromosome abnormalities ?? Cannot test for open neural tube defects; maternal serum AFP after 15 weeks is recommended Genetic Amniocentesis ?? Invasive procedure typically performed in the second trimester by which amniotic fluid is obtained for the purpose of chromosome analysis and/or other genetic analysis ?? Diagnostic results; >99% sensitivity for chromosome abnormalities ?? AFAFP measurement tests for open neural tube defects Comprehensive (Level II) ultrasound: Detailed ultrasound performed between 18- 22 weeks gestation toscreen for major defects and markers for aneuploidy. We reviewed the benefits and limitations of this testing. Screening tests provide a risk assessment specific to the for certain chromosome abnormalities, but cannot definitively diagnose or exclude a chromosome abnormality. Follow-up genetic counseling and consideration of diagnostic testing is recommended with any abnormal screening result. Diagnostic tests carry inherent risks- including risk of miscarriage- that require careful consideration. These tests can detect chromosome abnormalities with greater than 99% certainty. Results can be compromised by maternal cell contamination or mosaicism, and are limited by the resolution of c ytogenetic G-banding technology. There is no screening nor diagnostic test that can detect all formsof defects or mental disability. It was a pleasure to be involved with Rosalinda???s care. [id number] time of the meeting was 25 minutes. Dee Cohen [facility], [facility] Licensed Genetic Counselor [facility] TY COURT JUDGE documented in this encounter Plan of Treatment Not on filedocumented as of this encounter Results (ABNORMAL) [facility] Carrier Screening (04/23/2021 3:[address] JUDGE) [facility] gist Method Time Signature See Scanned See scanned MACIEL 05/06/2021 [facility] Result result. (A) 3:[address] JUDGE Specimen Anatomical Collection Method / Collection Time Recei corey Time (Source) Location / Volume Laterality Blood STRUCTURE OF LEFT Venipuncture / 04/23/2021 3:03 04/23 3:27 UPPER LIMB / Unknown PM COUNTY COURT JUDGE PM COUNTY [facility] JUDGE Unknown Narrative This result has an attachment that is no t available. Bree Gordillo MD LAB - BLOOD ORDERABLES Performing Organization Address City/State/ZIP Code Phon e Number [facility] [address] [place] [address] documented in this encounter Visit Diagnoses Diagnosis Primigravida of advanced maternal age in first trimester - Primary History of deep venous thrombosis Personal history of venous thrombosis an d embolism screening encounter Unspecified screening documented in this encounter
--- OUTSIDE RECORDS SUMMARY | 2021-11-12 11:02 | XMS_ITS | Encounter Summary ---
:1985 Author Organization [facility] Address [address] [place] [address]. [place] [address] Care Team Providers Name Role Phone Unavailable Primary Care Provider Unavailable Encounter Details Date Type Department Care Team Description 04/16/2021 Medical Correspondence [facility] Scan, MATERNAL Health Info Mgmt Non-Provider MEDICINE CE [facility] [place] [facility] PROVIDER SERVICE [address] [place] [address] [place] [address] [facility] [phone] AND CLINICS Social History Tobacco Use Types Packs/Day Years Used Date Never Assessed Sex Assigned at Date Recorded Not on file COVID-19 Exposure Response Date Recorded In the last month, have you been in contact with Yes 04/15/2021 9:45 PM SWAMPER someone who was confirmed or suspected to have Coronavirus / COVID-19? documented as of this encounter Plan of Treatment Not on filedocumented as of this encounter Visit Diagnoses Not on filedocumented in this encounter
--- OUTSIDE RECORDS SUMMARY | 2021-11-12 11:02 | XMS_ITS | Encounter Summary ---
:1985 Author Organization [place] Address [facility] [place] [address] Care Team Providers Name Role Phone Unavailable Primary Care Provider Unavailable Reason for Referral Diagnostic Imaging Ultrasound (Routine) - Pending Review Specialty Diagnoses / Procedures Referred By Contact Refer red To Contact Diagnoses related condition, antepartum Bree Gordillo MD Procedures [facility] US Comprehensive Single [address] [place], [place] [address] Referral ID Status Reason Start Date Expiration Date Visits V isits Requested Authorized [id number] Pending 04/23/2021 04/23/2022 1 1 Review HBORHOOD COORDINATOR Reason for Visit Reason Comments Genetic Counseling Hx DVT x2, AMA Ultrasound NT- Hx DVT x2, AMA Consult [facility]- Hx DVT x2, AMA Consultation (Routine: Next available opening) - Pending Review Specialty Diagnoses / Procedures Referred By Contact Refer red To Contact Diagnoses related condition, antepartum Vivi Roy CNM [facility] [address] [place] [address] Referral ID Status Reason Start Date Expiration Date Visits V isits Requested Authorized [id number] Pending 04/19/2021 04/19/2022 1 1 Review Encounter Details Date Type Department Care Team Description 04/23/2021 Office Visit [facility] Karlene Roy CNM [facility] [address] [place] [address] related condition, antepartum (Primary Dx); Maternal [place], Vivi Lisa, MD [address] [place], [place] [address] Personal history of DVT (deep vein throm bosis); Medicine Center Bree Gordillo MD [address] [place], [place] [id number] Primigravida of advanced maternal age in first trimester [place] [address] [place], [place] [address] Social History Tobacco Use Types Packs/Day Years Used Date Never Assessed Sex Assigned at Date Recorded Not on file COVID-19 Exposure Response Date Recorded In the last month, have you been in contact with No / Unsure 04/23/2021 12:34 PM NEIGHBORHOOD COORDINATOR someone who was confirmed or suspected to have Coronavirus / COVID-19? documented as of this encounter Progress Notes Alana Wills MD - 04/23/2021 2:15 PM CST Maternal- Medicine Consultation Rosalinda Chandler : 1985 REFERRAL: Rosalinda Chandler is a 35 year old sent by Vivi Roy CNM from [facility] for MFM consultation. HPI: Rosalinda Chandler is a 35 year old at 12w5d by 10w5d US here for MFM consultation regarding history of deep vein thrombosis of lower extremity, AMA. She is here alone. Patient has a history of unprovoked right lower extremity DVT. Presented to ED 06/22/2020 with several day onset leg pain. She first noted this pain after a long bike ride in September 2019. This then recurred intermittently every few months thereafter. She had 5 days of pain prior to presenting to ED for evaluation due to worsening pain, redness, and swelling. Was on OCP at that time, had been on since age 16, most recent version for last 4-5 years. Had several prior surgeries without complications of clot. ED US revealed RLE popliteal and peroneal DVT. She was started on Xarelto with resolution of symptoms 2-3 days later. She had a repeat US 08/07/20 which revealed resolution of the popliteal and peroneal clot but now a visible posterior tibial vein clot. She has had no new symptoms in her leg. No pain or swelling. Follows with Dr. Altman of hematology at [facility]. Recommended at least 3 months anticoagulation. Last visit telemedicine 08/20/20. She continued Xarelto until beginning of October 2020. Shehas been on baby Aspirin and PNV, is not yet on anticoagulation in this . Of note, patient had breakthrough COVID in late March, mild symptoms. Received Moderna 05/25/20, 06/22/20, booster 04/14/21. Care: Primary OB care this has been with [facility]. Obstetrics History: OB History Para Term AB Living 1 0 0 0 0 0 SAB IAB Ectopic Multiple Live Births 0 0 0 0 0 # Outcome Date GA Lbr Antony/2nd Weight Sex Delivery Anes PTL Lv 1 Current Gynecologic History: - Menstrual history: Patient's last menstrual period was 02/04/2021. - Last Pap: 02/09/20 NILM HPV negative - Denies any history of abnormal pap smears - Denies prior cervical surgery or procedures - Denies any history of frequent UTIs, vaginal infections, or STIs Past Medical History: Past Medical History: Diagnosis Date ??? DVT (deep venous thrombosis) (H) Past Surgical History: Past Surgical History: Procedure Laterality Date ??? ANTERIOR CRUCIATE LIGAMENT REPAIR ??? APPENDECTOMY ??? MAMMOPLASTY REDUCTION BILATERAL ??? WISDOM TOOTH EXTRACTION Current Medications: Current Outpatient Medications Medication Instructions ??? aspirin (ASA) 81 mg, Oral, DAILY ??? calcium-vitamin D 500-125 MG-UNIT TABS 1 tablet, Oral, 2 TIMES DAILY ??? Vit-Fe Fumarate-FA (PNV PLUS MULTIVITAMIN) 27-1 MG TABS per tablet 1 tablet, Oral, DAILY Allergies: Patient has no known allergies. 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 Former smoker, prior to occasional cigarette use. Not during . Occasional marijuana use prior to . Family History: Father with history of melanoma. Mother and brother with history of epilepsy. Grandfather had a blood clot after a surgery. Otherwise no known family history of blood clots. Denies history of genetic disorders, preeclampsia, thromboembolic disease, bleeding disorders, developmental delay. ROS: 10-point ROS negative except as in HPI PHYSICAL EXAM: Deferred Ultrasound: DATING Date Details Gest. age JN LMP 02/04/2021 11 w + 1 d 11/11/2021 Prior assessment 04/09/2021 GA: 10 w + 5 d 12 w + 5 d 10/31/2021 U/S 04/23/2021 based upon CRL 13 w + 0 d 10/29/2021 Assigned dating Dating performed on 04/23/2021, based on the prior assessment (on 04/09/2021) 12 w + 5 d 10/31/2021 ? GENERAL EVALUATION Cardiac activity present. Placenta posterior. Cord vessels normal insertion. Amniotic fluid normal amount. ? BIOMETRY FHR 154 bpm CRL 66.7 mm 13w 0d Hadlock ? ANATOMY Face: profile seen and nasal bone present Neck: Normal Nuchal Translucency ?? The following structures appear normal: Cranium. Abdominal wall. Stomach. Bladder. Arms. Legs. ? MATERNAL STRUCTURES Cervix Visualized Appearance: Appears Closed Right Ovary Visualized Left Ovary Visualized ?? Other Imaging: EXAM: US VENOUS RIGHT LOWER EXTREM DOPPLER LOCATION: [facility] DATE/TIME: 10/03/2020 10:59 AM INDICATION: Right lower extremity DVT follow-up. COMPARISON: 08/07/2020 TECHNIQUE: Venous Duplex ultrasound of the right lower extremity with and without compression, augmentation and duplex. Color flow and spectral Doppler with waveform analysis performed. FINDINGS: Exam includes the common femoral, femoral, popliteal, and contralateral common femoral veins as well as segmentally visualized deep calf veins and greater saphenous vein. RIGHT: No new deep vein thrombosis. There is likely a small amount of residual chronic thrombus in aposterior tibial vein segment of the proximal calf. No superficial thrombophlebitis. No popliteal cyst. IMPRESSION: 1. ??No acute deep venous thrombosis in the right lower extremity. 2. ??There is likely a small amount of residual chronic thrombus in a posterior tibial vein segment of the proximal calf. ?? Labs 08/16/20 beta 2 glycoprotein negative 08/16/20 anticardiolipin IgG negative, IgM weak positive 10.0 08/16/20 free protein S 109% WNL 08/16/20 factor 2 negative 08/16/20 factor 5 leiden negative 08/16/20 antithrombin 3 94% WNL 08/16/20 protein C 105% Lupus anticoagulant results not found ASSESSMENT/PLAN: Rosalinda Chandler is a 35 year old at 12w5d by 10w5d US here for M consultation regarding history of deep vein thrombosis of lower extremity, AMA. History of DVT, unprovoked and women have up to a five-fold increased risk for venous thromboembolism (VTE); they have higher rates of stasis, hypercoagulability and vascular damage (Virchow Triad). Decreasedmobility may also play a role. The prevention of deep vein thrombosis (DVT) is paramount because pulmonary embolism (PE) is a leading cause of maternal , responsible for 9% of maternal deaths. Themost important risk factor for VTE in is a personal history of VTE, and up to 25% of casesof VTE in are recurrent events. The second most important risk factor is the presence of athrombophilia, with up to 50% of women experiencing VTE in having a thrombophilia. ACOG rec ommends that all women with a VTE be evaluated for both antiphospholipid antibody syndrome and inherited thrombophilias. These results might tire changer aircraft of a future . Women with a history of VTE that is estrogen or related or was idiopathic (i.e. unprovoked), in the absence of a thrombophilia, are managed with prophylactic anticoagulation during and for 6 weeks . For most patients enoxaparin 40 mg daily is sufficient. Most expert recommend waiting 10-12 hours after a dose of LMWH before placing regional anesthesia. Similarly, a dose should be given no sooner than four hours after removal of an epidural and 12 hours after the regional anesthesia placement. The exact timing should be discussed with the anesthesiologist performing the procedure. From an obstetrics stand point, assuming no significant bleeding anticoagulation can usually be resumed 12 hours after a or six hours after a vaginal . Again, pneumatic compression devices are recommended. is safe on enoxaparin. Avoidance of estrogen containing control is recommended. Recommendations: ??? Initiate enoxaparin 40 mg daily LMWH, this was prescribed today. ??? Consultation with anesthesiology if regional anesthesia desired. ??? Recommend waiting 12 hours after a dose of LMWH before placing regional anesthesia. Similarly, adose should be given no sooner than four hours after removal of an epidural and 12 hours after the regional anesthesia placement. Discussed some patients may desires IOL for timing of lovenox prior to delivery. Discussed risk of lovenox dosing less than 12 hours prior to presentation to L&D including possible inability to receive epidural or requirement for general anesthesia in the event of section. ??? Do not recommend transition to heparin or monitoring of anti-Xa levels in . ??? Sequential compression devices until the patient is fully ambulatory and has resumed anticoagulation therapy . ??? From an obstetrics stand point, assuming no significant bleeding anticoagulation can usually be resumed 12 hours after a or six hours after a vaginal . ??? Continuation of LMWH for 6 weeks ??? Assessment for antiphospholipid antibody syndrome with anticardiolipin IgG/IgM, [id number] IgG/IgM and lupus anticoagulant. Lupus anticoagulant was not available for review and anticardiolipin weak positive. Thus this testing was repeated today. ??? Assessment for inherited thrombophilias including Factor V Leiden and Prothrombin Gene Mutation.This was already completed. ??? Prior to initiating anticoagulation (or once the patient is off of anticoagulation) she should be assessed for Protein C deficiency and Antithrombin III deficiency. This was already completed. ??? Protein S should also be assessed, (off of anticoagulation) but the cut-offs for free Protein S antigen are different for (<30% in 2nd trimester and <24% in 3rd trimester). This wasalready completed. AMA The risk of aneuploidy increases with age. We reviewed these risks at length and we discussed the options available for risk assessment for aneuploidy during . We also discussed how those strategies fit in with the available diagnostic tests (like CVS and amniocentesis). Patients of advanced age are also at increased risks of complications, including miscarriage, preeclampsia, abnormalities with placentation, stillbirth, and delivery. These risks increase with increasing maternal age and comorbidities. The patient received genetic counseling about diagnostic and screening options, including: ??? cell free DNA from maternal serum. Already completed. ??? First trimester risk-assessment with nuchal translucency and serum markers (between 11 and 14 weeks). ??? Chorionic villus sampling. ??? Amniocentesis. ??? Second trimester quad screening or integrated screening. Recommendations: ??? The patient has opted for NIPT and expanded carrier screening ??? Targeted anatomical ultrasound at 18-20 weeks. ??? Consider induction of labor at 39-40 weeks, but no later than 41 weeks. ??? If chronic medication is not being used and serial growth is not implemented for other comorbidities, then single growth assessment in the third trimester. ??? Consider low-dose aspirin (usually 81 mg daily) started in the early second trimester for preeclampsia prevention if additional risk-factors exist. She is already taking this. The patient was seen and evaluated with Dr. Gordillo Thank you for allowing us to participate in the care of your patient. Please do not hesitate to contact us if you have further questions regarding the management of your patient. Alana Wills MD Maternal- Medicine Fellow, PGY5 04/23/2021 4:59 PM HBORHOOD COORDINATOR Associated attestation - Bree Gordillo MD - 04/29/2021 10:50 PM NEIGHBORHOOD COORDINATOR MFM Attending Attestation I have seen and evaluated the patient with Dr. Wills. I reviewed her chart and agree with the abovedocumented assessment and plan. I spent a total of 45 minutes on the date of this encounter including preparing to see the patient (reviewing medical records/tests), in direct aeek-pi-gysq contact withthe patient during her visit with the majority (>50%) spent counseling and discussing the plan ofcare, documenting the visit in the electronic medical record, and communicating with other health primary care nurse and/or care coordination.Please see her note for specific details; I have made the necessary edits/additions. The patient was also seen for an ultrasound in the Maternal- Medicine Center at the [facility] [place] today. For a detailed report of the ultrasound examination, please see the ultrasound report which can be found under the imaging tab. Bree Gordillo MD Maternal Medicine Physician documented in this encounter Nursing Notes Lashaun Nuno RN - 04/23/2021 2:15 PM CST Rosalinda seen in clinic today for GC (see note), NT (see ultrasound report) and MFM consult at 12w5d gestation for complicated by Hx DVT x2 and AMA (see report/notes). Medications, allergies, and goals discussed. Dr. Gordillo and Dr. Wills met with pt and discussed POC. Plan for carrier screeninglab to be drawn today. L2 ordered. Future visits scheduled at medical front desk coordinator. Pt discharged stable and ambulatory. HBORHOOD COORDINATOR documented in this encounter Plan of Treatment Not on filedocumented as of this encounter Results [facility] US Comprehensive Single (06/04/2021 11:31 AM NEIGHBORHOOD COORDINATOR) Anatomical Region Laterality Modality Ultrasound Specimen (Source) Anatomical Collection Method Collection Time Re ceived Time Location / / Volume Laterality 06/04/2021 10:54 AM NEIGHBORHOOD COORDINATOR Impressions 06/04/2021 11:47 AM NEIGHBORHOOD COORDINATOR IMPRESSION 1) Leary intrauterine at 1 8w [...] long and closed. Narrative 06/04/2021 11:47 AM NEIGHBORHOOD COORDINATOR Comprehensive Pat. Name: ROSALINDA CHANDLER Study Date: 04/2021 10:54am Pat. NO: [id number] Referring ??MD: ADIN ROY Site: [facility] Machine Operator: Yanci Abarca RD MS : 1985 Age: 35 INDICATION Advanced Maternal Age. H/o DVT on loveno x. METHOD Transabdominal ultrasound examination. V iew: Sufficient Leary . Number of fetuses: 1 DATING ? Date ?Details ?Gest. age ?JN LMP ?02/04/2021 ? 17 w + 1 d ? 11/11/2021 Prior assessment ? 04/09/2021 ?GA: 10 w + 5 d ? [...] Biometry: BPD ?43.4 ?mm ? 19w 1d ?Oly THAKUR ?55.5 ?mm ? 18w 3d ?Nicolaides HC ?159.9 ?mm ?18w 6d ?Hadlock Cerebellum tr ?19.3 ? mm ?18w 5d ?Nicolaides AC ?132.8 ?mm ?18w 5d ?48% ?Hadlock Femur ?27.9 ? mm ?18w 4d ?Hadlock Humerus ?27.2 ?mm ? 18w 5d ?Geeta Weight Calculation: EFW ? 253 ? g ? 43% ?Hadlock EFW (lb,oz) ? 0 lb 9 ?oz EFW by ?Hadlock ([id number]) Head / Face / Neck Biometry: Social Media Marketing Analyst ? 6.8 ? mm CM ?4.9 ? [...] cava. Inferior vena cava. 3-vessel ? view. 7-xaoqgl-irqtsna view. Cardiac position. Cardiac size. Cardiac rhythm. [...] Pat. Name:Delroy CHANDLER Date:2021 10:54am Pat. NO: [id number] MD:VIVI ROY [facility]Yanci Abarca RDMS :1985Age:35 INDICATION Advanced Maternal Age. [...] 0 lb 9 oz EFW by Hadlock ([id number]) Head / Face / Neck Biometry: Social Media Marketing Analyst 6.8 mm CM 4.9 mm Nasal bone [...] vena cava. Inferior vena cava. 3-vessel view. 9-vsxyir-phvbrjs view. Cardiac po sition. Cardiac size. Cardiac [...] a comprehensive ultrasound. She is seen by [facility] due to advanced maternal age. She had [...] 80-90% of structura l abnormalities. No further [facility] follow up is indicated at this time. I recommend planned induction at 39 weeks with temporary hold of lovenox for 24 hours prior to delivery. 6 weeks of lovenox is also indicated. Pl shahbaz see consultation on 04/23/21 for further details. [...] appears long and closed. Bree Gordillo MD [facility] US ORDERABLES Beta 2 Glycoprotein 1 Antibody IgG (04/23/2021 3:03 PM NEIGHBORHOOD COORDINATOR) athologist Signature Beta 2 1.2 <7.0 U/mL 04/24/2021 [facility] Glycoprotein 1 4:17 PM NEIGHBORHOOD COORDINATOR CORE/PROT/END Antibody IgG O Comment: Negative Specimen Anatomical Collection Method / Collection Time Recei corey Time (Source) Location / Volume Laterality Blood STRUCTURE OF LEFT Venipuncture / 04/23/2021 3:03 04/23 3:27 UPPER LIMB / Unknown PM NEIGHBORHOOD COORDINATOR PM NEIGHBORHOOD COORDINATOR Unknown Bree Gordillo MD LAB - BLOOD ORDERABLES Performing Organization Address City/[facility] Code Phon e Number [facility] CORE/PROT/ENDO [facility] [place] [address] Core/Prot/Endo [address] [facility], [address]580 Beta 2 Glycoprotein 1 Antibody IgM (04/23/2021 3:03 PM NEIGHBORHOOD COORDINATOR) athologist Signature Beta 2 <2.4 <7.0 U/mL 04/24/2021 [facility] Glycoprotein 1 4:14 PM NEIGHBORHOOD COORDINATOR CORE/PROT/END Antibody IgM O Comment: Negative Specimen Anatomical Collection Method / Collection Time Recei corey Time (Source) Location / Volume Laterality Blood STRUCTURE OF LEFT Venipuncture / 04/23/2021 3:03 04/23 3:27 UPPER LIMB / Unknown PM NEIGHBORHOOD COORDINATOR PM NEIGHBORHOOD COORDINATOR Unknown Bree Gordillo MD LAB - BLOOD ORDERABLES Performing Organization Address City/State/ZIP Code Phon e Number [facility] CORE/PROT/ENDO [facility] [place] [address] Core/Prot/Endo [address] [facility] [address] [facility], Room 3-580 Cardiolipin Rosana IgG and IgM (04/23/2021 3:03 PM NEIGHBORHOOD COORDINATOR) Patholo gist Method Time Signature Cardiolipin Rosana <2.0 <10.0 04/24/2021 [facility] IgG Instrument GPL-U/mL 4:17 PM NEIGHBORHOOD COORDINATOR CORE/PROT/END Value O Cardiolipin Negative Negative 04/24/2021 [facility] Antibody IgG 4:17 PM NEIGHBORHOOD COORDINATOR CORE/PROT/END O Cardiolipin Rosana 6.1 <10.0 04/24/2021 [facility] IgM Instrument MPL-U/mL 4:17 PM NEIGHBORHOOD COORDINATOR CORE/PROT/END Value O Cardiolipin Negative Negative 04/24/2021 [facility] Antibody IgM 4:17 PM NEIGHBORHOOD COORDINATOR CORE/PROT/END O Specimen Anatomical Collection Method / Collection Time Recei corey Time (Source) Location / Volume Laterality Blood STRUCTURE OF LEFT Venipuncture / 04/23/2021 3:03 04/23 3:27 UPPER LIMB / Unknown PM NEIGHBORHOOD COORDINATOR PM NEIGHBORHOOD COORDINATOR Unknown Bree Gordillo MD LAB - BLOOD ORDERABLES Performing Organization Address City/State/ZIP Code Phon e Number [facility] CORE/PROT/ENDO [facility] [place] [address] Core/Prot/Endo [address] [facility] [address], Room [address]580 Lupus Anticoagulant Panel (04/23/2021 3:03 PM NEIGHBORHOOD COORDINATOR) [facility] Method Time Signature INR 1.02 0.85 - [facility] 1.15 2 2:34 PM COAGULATION NEIGHBORHOOD COORDINATOR Thrombin Time 15.3 13.0 - [facility] 19.0 2 2:34 PM COAGULATION Seconds NEIGHBORHOOD COORDINATOR PTT Ratio 0.92 <1.21 SPECIAL 2 2:34 PM COAGULATION NEIGHBORHOOD COORDINATOR DRVVT Screen 1.06 <1.21 SPECIAL Ratio 2 2:34 PM COAGULATION NEIGHBORHOOD COORDINATOR Lupus Result Negative Negative SPECIAL 2 2:34 PM COAGULATION NEIGHBORHOOD COORDINATOR Lupus The INR is normal. SPECIAL Interpretation APTT ratio is normal. ?? 2 2:34 PM COAGULATION DRVVT Screen ratio is normal. NEIGHBORHOOD COORDINATOR Thrombin time is normal. NEGATIVE TEST; A LUPUS ANTIC OAGULANT WAS NOT DETECTED IN THIS SPECIMEN WITHIN THE LIMITS OF THE TESTING REPERTOIRE. If the clinical picture is s trongly suggestive of an antiphospholipid syndrome, recommend anticardiolipin and xxby-9-dqwhxfealijb (IgG and IgM) antibody tests. Graciela Kim MD, PhD [facility] Specimen Anatomical Collection Method / Collection Time Recei corey Time (Source) Location / Volume Laterality Blood STRUCTURE OF LEFT Venipuncture / 04/23/2021 3:03 04/23 3:27 UPPER LIMB / Unknown PM NEIGHBORHOOD COORDINATOR PM NEIGHBORHOOD COORDINATOR Unknown Bree Gordillo MD LAB - BLOOD ORDERABLES Performing Organization Address City/State/ZIP Code Phon e Number SPECIAL [place] [address] Coagulation [address] [facility] [address], [address] documented in this encounter Visit Diagnoses Diagnosis related condition, antepartum - Primary Personal history of DVT (deep vein throm bosis) Personal history of venous thrombosis an d embolism Primigravida of advanced maternal age in first trimester related condition, antepartum documented in this encounter
--- OUTSIDE RECORDS SUMMARY | 2021-11-12 11:02 | XMS_ITS | Encounter Summary ---
:1985 Author Organization [place] Address [facility] [place] [address] Care Team Providers Name Role Phone Unavailable Primary Care Provider Unavailable Reason for Referral Consultation (Routine: Next available opening) - Pending Review Specialty Diagnoses / Procedures Referred By Contact Refer red To Contact Diagnoses History of deep venous thrombosis Shasta Gupta [address] [place], [place] [address] Referral ID Status Reason Start Date Expiration Date Visits V isits Requested Authorized [id number] Pending 04/18/2021 04/18/2022 1 1 Review OMER ACCOUNT COORDINATOR Encounter Details Date Type Department Care Team Description 04/18/2021 Orders Only [facility] Taya Garcia, History of deep venous Maternal Medicine RN pattie borrego (Primary Dx) [facility] [address] [place] [address] Social History Tobacco Use Types Packs/Day Years Used Date Never Assessed Sex Assigned at Date Recorded Not on file COVID-19 Exposure Response Date Recorded In the last month, have you been in contact with Yes 04/15/2021 9:45 PM CUSTOMER ACCOUNT COORDINATOR someone who was confirmed or suspected to have Coronavirus / COVID-19? documented as of this encounter Plan of Treatment Scheduled Referrals Name Type Priority Associated Diagnoses Order S chedule MFM Genetic Referral Routine: Next History of deep Expected: Counseling available opening venous thrombosis 04/18 (Approximate), Expires: 04/18/2022 documented as of this encounter Visit Diagnoses Diagnosis History of deep venous thrombosis - Prim pilar Personal history of venous thrombosis an d embolism documented in this encounter
--- OUTSIDE RECORDS SUMMARY | 2021-11-12 11:02 | XMS_ITS | Encounter Summary ---
:1985 Author Organization [place] Address [address] [facility] [place] [address] Care Team Providers Name Role Phone Unavailable Primary Care Provider Unavailable Reason for Visit Reason Comments Genetic Counseling Hx DVT x2, AMA Ultrasound NT-Hx DVT x2, AMA Consult MFM-Hx DVT x2, AMA Encounter Details Date Type Department Care Team Description 04/19/2021 PRE VISIT [facility] Taya Garcia, Genetic Counseling (Hx Maternal Medicine RN DVT x2, AMA); Ultrasound [facility] [place] (NT-Hx DVT x2, AMA); [address] Consult (MFM-Hx DVT x2, [place], [place] [address] AMA) [phone] Social History Tobacco Use Types Packs/Day Years Used Date Never Assessed Sex Assigned at Date Recorded Not on file COVID-19 Exposure Response Date Recorded In the last month, have you been in contact with Yes 04/15/2021 9:45 PM 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 documented as of this encounter Plan of Treatment Not on filedocumented as of this encounter Visit Diagnoses Not on filedocumented in this encounter
--- OUTSIDE RECORDS SUMMARY | 2021-11-12 11:02 | XMS_ITS | Encounter Summary ---
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 documented as of this encounter Plan of Treatment Not on filedocumented as of this encounter Visit Diagnoses Not on filedocumented in this encounter
--- OUTSIDE RECORDS SUMMARY | 2021-11-12 11:02 | XMS_ITS | Encounter Summary ---
:1985 Author Organization [place] Address [address] [place] [address] Care Team Providers Name Role Phone Unavailable Primary Care Provider Unavailable Encounter Details Date Type Department Care Team Description [facility] LA[facility] CONVERSION Provider, Histor ical Social History Tobacco Use Types Packs/Day Years Used Date Never Assessed Sex Assigned at Date Recorded Not on file documented as of this encounter Plan of Treatment Not on filedocumented as of this encounter Procedures Procedure Name Priority Date/Time Associated Comments Diagnosis MR MISCELLANEOUS ORDER Routine 04/14/2001 12:00 R esults for this AM MD UROLOGIST procedure are i n the results section. documented in this encounter Results MR MISCELLANEOUS ORDER (04/14/2001 12:00 AM MD UROLOGIST) Anatomical Region Laterality Modality Other Specimen (Source) Anatomical Location Collection Method / Collectio n Time Received Time / Laterality Volume Narrative 04/14/2001 12:00 AM MD UROLOGIST See Historical Hospital Medical Record f or documentation Procedure Note Provider, Historical - 08/28/2020Formatt ing of this note might be different from the original. See Historical Hospital Medical Record f or documentation Historical Provider IMG MRI ORDERABLES documented in this encounter Visit Diagnoses Not on filedocumented in this encounter
--- OUTSIDE RECORDS SUMMARY | 2021-11-12 11:02 | XMS_ITS | Encounter Summary ---
:1985 Author Organization [place] Address [address] [place] [address] Care Team Providers Name Role Phone Unavailable Primary Care Provider Unavailable Reason for Visit Diagnostic Imaging Ultrasound (Routine) - Pending Review Specialty Diagnoses / Procedures Referred By Contact Refer red To Contact Diagnoses History of deep venous thrombosis Shasta Gupta Procedures Maternal US OB Comp 1st Tri Single Maternal Nuchal Translucency [address] [place], [place] [address] Referral ID Status Reason Start Date Expiration Date Visits V isits Requested Authorized [id number] Pending 04/18/2021 04/18/2022 1 1 Review Encounter Details Date Type Department Care Team Description 04/23/2021 Hospital Encounter [facility] Amberly Winnie Gupta [address] [place] [address] History of deep Maternal NyVivi cuevas MD [address] [place] [address] venous thrombosis [facility] [place] [address] [place] [address] Social History Tobacco Use Types Packs/Day Years Used Date Never Assessed Sex Assigned at Date Recorded Not on file COVID-19 Exposure Response Date Recorded In the last month, have you been in contact with No / Unsure 04/23/2021 12:34 PM STRAPPING MACHINE OPERATOR someone who was confirmed or [...] encounter Procedures Procedure Name Priority Date/Time Associated Diagnosis Comme nts [facility] US OB COMPLETE Routine 04/23/2021 1:54 PM History of deep Results for this 1ST TRI SINGLE STRAPPING MACHINE OPERATOR venous thrombosis procedur e are in the results section. documented in this encounter Results Maternal US OB Comp 1st Tri Single (04/23/2021 1:54 PM STRAPPING MACHINE OPERATOR) Anatomical Region Laterality Modality Ultrasound Specimen (Source) Anatomical Collection Method Collection Time Re ceived Time Location / / Volume Laterality 04/23/2021 1:26 PM STRAPPING MACHINE OPERATOR Impressions 04/23/2021 2:23 PM STRAPPING MACHINE OPERATOR IMPRESSION 1. Leary intrauterine at 1 3w0d gestational age here for aneuploidy risk assessment 2. The nuchal translucency measurement i s within the normal range. 3. The nasal bone was visualized. 4. Measurements consistent with establis hed dates. Narrative 04/23/2021 2:23 PM STRAPPING MACHINE OPERATOR 1st Trim Pat. Name: TRUDI CHANDLER Study Date: 1:26pm Pat. NO: [id number] Referring ??MD: ADIN KHAN Site: [facility] Drop Wirer: Yanci Abarca RD MS : 1985 Age: 35 INDICATION Advanced Maternal Age. History of DVT. METHOD Transabdominal ultrasound examination. V iew: Sufficient Leary . Number of fetuses: 1 DATING ? Date ?Details ?Gest. age ?JN LMP ?02/04/2021 ? 11 w + 1 d ?11/11/2021 Prior assessment ? 04/09/2021 ?GA: 10 w + 5 d ? 12 w + 5 d ? 10/31/2021 U/S ? 04/23/2021 ? based upon CRL ?13 w + 0 d ? 10/29/2021 Assigned dating ?Dating performed on 04/23/2021, based on the prior assessment (on 04/09/2021) ?12 w + 5 d ? 10/31/2021 GENERAL EVALUATION Cardiac activity present. Placenta posterior. Cord vessels normal insertion. Amniotic fluid normal amount. BIOMETRY FHR ?154 ? bpm CRL ? 66.7 ? mm ? 13w 0d ? [place]lock ANATOMY Face: profile seen and nasal bone presen t Neck: Normal Nuchal Translucency The following structures appear normal: Cranium. Abdominal wall. Stomach. Jeannettee peterson Nava. Legs. MATERNAL STRUCTURES Cervix ?Visualized ? Appearance: Appears Closed Right Ovary ?Visualized Left Ovary ?Visualized RECOMMENDATION Thank you for referring your patient for a first trimester ultrasound with nuchal translucency screening. We discussed the results of the ultrasou nd with the patient. Your patient already had low risk cell f ree DNA screening. The results of this screen will be forwarded to you as soon as they are available. Because cell free DNA screening does not screen for open neura l tube defects, the patient should be offered MSAFP screening at 15-20 weeks gestation. Comprehensive ultrasound is recommended at 18-20 weeks. Ms. Chandler was also seen today in our office for an MFM consult. Please see our note in Epic for full details and recommendations from today's visit. Return to primary provider for continued care. If you have questions regarding today's evaluation or if we can be of further service, please contact the Maternal[facility] Center. anomalies may be present but not detected Procedure Note Bree Gordillo MD - 04/25/2021Formattin g of this note might be different from the original. 1st Trim Pat. Name:Delroy CHANDLER Date:2021 1:26pm Pat. NO: [id number] :VIVI KHAN [facility]:Yanci Abarca RDMS :1985Age:35 INDICATION Advanced Maternal Age. History of DVT. METHOD Transabdominal ultrasound examination. V iew: Sufficient Leary . Number of fetuses: 1 DATING Date Details Gest. age JN LMP 02/04/2021 11 w + 1 d 11/11/2021 Prior assessment 04/09/2021 GA: 10 w + 5 d 12 w + 5 d 10/31/2021 U/S 04/23/2021 based upon CRL 13 w + 0 d 10/29/2021 Assigned dating Dating performed on 04/06, based on the prior assessment (on 04/09/2021) 12 w + 5 d 10/31/2021 GENERAL EVALUATION Cardiac activity present. Placenta posterior. Cord vessels normal insertion. Amniotic fluid normal amount. BIOMETRY FHR 154 bpm CRL 66.7 mm 13w 0d Hadlock ANATOMY Face: profile seen and nasal bone presen t Neck: Normal Nuchal Translucency The following structures appear normal: Cranium. Abdominal wall. Stomach. Jeannettee peterson Bhatti Legs. MATERNAL STRUCTURES Cervix Visualized Appearance: Appears Closed Right Ovary Visualized Left Ovary Visualized RECOMMENDATION Thank you for referring your patient for a first trimester ultrasound with nuchal translucency screening. We discussed the results of the ultrasou nd with the patient. Your patient already had low risk cell f ree DNA screening. The results of this screen will be forwarded to you as soon as they are available. Because cell free DNA screening does not screen for open neura l tube defects, the patient should be offered MSAFP screening at 15-20 weeks gestation. Comprehensive ultrasound is recommended at 18-20 weeks. Ms. Chandler was also seen today in our office for an M consult. Please see our note in Epic for full details and recommendations from today's visit. Return to primary provider for continued care. If you have questions regarding today's evaluation or if we can be of further service, please contact the Maternal[facility] Center. anomalies may be present but not detected IMPRESSION 1. Leary intrauterine at 1 3w0d gestational age here for aneuploidy risk assessment 2. The nuchal translucency measurement i s within the normal range. 3. The nasal bone was visualized. 4. Measurements consistent with establis [facility]. Shasta Gupta [facility] US ORDERABLES documented in this encounter Visit Diagnoses Diagnosis History of deep venous thrombosis Personal history of venous thrombosis an d embolism documented in this encounter
--- OUTSIDE RECORDS SUMMARY | 2021-11-12 11:02 | XMS_ITS | Encounter Summary ---
:1985 Author Organization [place] Address [address] [place] [address]. [place] [address] Care Team Providers Name Role Phone Unavailable Primary Care Provider Unavailable Encounter Details Date Type Department Care Team Description 04/11/2021 Medical Correspondence [facility] Scan, MATERNAL Health Info Mgmt Non-Provider MEDICINE CE [facility] Srvcs PROVIDER SERVICE [address] [place] [address] [place] [address] [facility] [phone] AND CLINICS Social History Tobacco Use Types Packs/Day Years Used Date Never Assessed Sex Assigned at Date Recorded Not on file COVID-19 Exposure Response Date Recorded In the last month, have you been in contact with Yes 04/15/2021 9:45 PM REIKI PRACTITIONER someone who was confirmed or suspected to have Coronavirus / COVID-19? documented as of this encounter Plan of Treatment Not on filedocumented as of this encounter Visit Diagnoses Not on filedocumented in this encounter
--- OUTSIDE RECORDS SUMMARY | 2021-11-12 11:02 | XMS_ITS | Encounter Summary ---
:1985 Author Organization [place] Address [address] [place] [address] Care Team Providers Name Role Phone Unavailable Primary Care Provider Unavailable Reason for Referral Consultation (Routine: Next available opening) - Pending Review Specialty Diagnoses / Procedures Referred By Contact Refer red To Contact Diagnoses related condition, antepartum Emily Roy CNM [facility] [address] [place] [address] Referral ID Status Reason Start Date Expiration Date Visits V isits Requested Authorized [id number] Pending 04/19/2021 04/19/2022 1 1 Review ESS WORKER Encounter Details Date Type Department Care Team Description 04/19/2021 Transcribe Orders [facility] Emily Roy P regnancy related Maternal CN condition, [facility] antepartum (Primary [facility] Dx) [address] [place] [address] [phone] Social History Tobacco Use Types Packs/Day Years Used Date Never Assessed Sex Assigned at Date Recorded Not on file COVID-19 Exposure Response Date Recorded In the last month, have you been in contact with Yes 04/15/2021 9:45 PM PROCESS WORKER someone who was confirmed or suspected to have Coronavirus / COVID-19? documented as of this encounter Plan of Treatment Scheduled Referrals Name Type Priority Associated Diagnoses Order S jenn [facility] Office Visit Referral Routine: Next related Expec vaibhav: available opening condition, antepartum 0 04/19/2021 (Approximate), Expires: 04/19/2022 documented as of this encounter Visit Diagnoses Diagnosis related condition, antepartum - Primary documented in this encounter
== END 2021-10-16 01:43 | disposition home or self-care (01) ==
LOC: OB OUT 00:01 → OB 01:05
PROVIDERS: Visit Provider Advanced Practice Midwife
DX: O47.03 False labor before 37 completed weeks of gestation, third trimester (principal); Z3A.36 36 weeks gestation of pregnancy
CPT/HCPCS: 59025; 80306; 84112; 99211; 99213

== ENCOUNTER 2021-11-05 06:12 | Inpatient (IN) | payer BC, SELFPAY ==
[2021-11-05] VITALS (76 sets, daily range): BP systolic 83–138; BP diastolic 48–77; PULSE 72–120; RESP 16–20; TEMP 36.4–36.9; O2SAT 97–98; BMI 29.4
[2021-11-05] MEDS: LACTATED RINGERS 1000 ML 1,000 ML 125 ML IV ×2 (07:45→13:21)
[2021-11-05] MEDS: AMPICILLIN 2 GM in 0.9 % SODIUM CHLORIDE Mini-bag 100 ML IVPB (07:46)
[2021-11-05 08:02] LABS: SARS PCR* Negative SARS-CoV-2 (Negative)
[2021-11-05 08:06] LABS: Amphetamine Screen Urine Negative (Negative); Barbiturate Screen Urine Negative (Negative); Benzodiazepines Screen Urine Negative (Negative); Cannabinoid Screen Urine Negative (Negative); Cocaine Screen Urine Negative (Negative); Methadone Screen Urine Negative (Negative); Methamphetamines Screen Urine Negative (Negative); Opiate Screen Urine Negative (Negative); Oxycodone Screen Urine Negative (Negative); Phencyclidine Screen Urine Negative (Negative); Tricyclic Antidepressant Urine Negative (Negative)
--- NOTE | 2021-11-05 08:33 | P.LDBA_ITS ---
Subjective History of Present Illness Narrative: Patient is being admitted to Labor and Delivery for induction of labor due to history of DVT. She is a 36 year old at weeks gestation. She has not been taking her heparin for the last week due to irregular contractions and was recommended by Dr. Pedro to be delivered. Her full history and physical was dictated by Dr. Jasso on 10/09/2021. Please see this for details. OB HISTORY: 1. History of DVT X2. Referral to perinatology for anticoagulation plan. -- Enoxaparin 40mg QD -- transition to heparin at 36 weeks gestation: 5,000u SQ BID given on 10/09/2021 -- induction of labor at 39 weeks: discussed IOL and pt. declined on 10/09/21. Understands epidural may be delayed if she goes into spontaneous labor. -- Start Lovenox 12-24 hours pp 40 mg daily until 6 weeks pp 2. Hx of breast reduction --has had some colostrum from the left nipple --understands that she may not be able to meet her 's nutritional needs with breast-feeding and may need to formula feed 3. Hx of marijuana use, positive at B. NEEDS repeat at 28 and 36 weeks. States stopped by B visit --negative U tox at 28 weeks -- 36w6d 10/09/21 U tox: Negative 4. AMA --LVL 2 USN at [facility] 06/04/21. No anatomic abnormalities identified. -- [id number]: normal, boy -- Normal NT per [facility] 1st trimester screen --36 week growth USN 10/09/21: vtx, SDP 4.8cm. EFW: 3299 g, 7 lb 4 oz, 79%. HC 77%. AC 73%. 5. Possible 3 x 2.7 x 3.5 centimeter fibroid seen on NOB Not mentioned at 36 week US 6. 08/12/21: 1hr GTT: 150. --3hr GTT 08/16/2021: Fasting 83, 1 hour 187 (H), 2 hours 148, 3 hours 115: No GDM OB - H&P: Exam Physical Exam: Vital signs: Temp Pulse Resp BP Pulse Ox 98.1 F 100 18 116/75 97 11/05/21 07:00 11/05/21 06:29 11/05/21 07:00 11/05/21 06:29 11/05/21 06:27 Narrative: Psychiatric: Alert and oriented x3 HEENT: Normocephalic, atraumatic Neck: Supple Lungs: Clear to auscultation bilaterally Heart: Regular rate and rhythm, no murmur, rub or gallop Abdomen: Soft, nontender, and gravid Extremities: No edema or erythema Pelvic: SVE: 5cm/90%/0, per RN Membrane status: Intact presentation: Vertex FHT: Moderate Variability. Positive Accels. No Decels. Baseline 130. [place]: Ctx Q1-7min OB - Problem Based A/P Additional Plan (1) Encounter for induction of labor: Problem details: 36yo with IUP at 40 5/7 weeks gestational Induction of Labor for hx of DVT Reactive NST. GBS status: Positive Status: Acute (2) History of DVT (deep vein thrombosis): Status: Acute (3) History of marijuana use: Status: Acute (4) Advanced maternal age in : Status: Acute Plan PLAN: 1. Routine intrapartum cares as ordered with Intermittent monitoring per policy. Induction options discussed with patient including Pitocin then AROM, just pitocin, or just AROM. Patient prefers to try AROM instead of using Pitocin because she wants to try unmedicated. Will delay AROM until GBS antibiotics have been started. 2. GBS prophylaxis treatment per protocol. Discussed starting antibiotics now and AROM after about 2 hours of administration. 3. Patient encouraged to reposition to promote physiologic labor and . Patient planning unmedicated, she is not a candidate for waterbirth. Labor analgesic of choice if requested by patient. 4. Anticipate . Delivery/Labor/Induction Plan Plan: induction Induction method: AROM (After GBS antibiotics have been started, see plan.)
[2021-11-05] MEDS: AMPICILLIN 1 GM in 0.9 % SODIUM CHLORIDE Mini-bag 100 ML IVPB ×4 (11:21→23:20)
[2021-11-05] MEDS: LIDOCAINE 2% (PF) 5 ML VIAL EPIDURAL (13:18)
[2021-11-05] MEDS: ROPIVACAINE 0.2% 100 ml 100 ML 12 MG EPIDURAL ×2 (13:18→20:53)
--- NOTE | 2021-11-05 13:20 | PM.ANBPRC ---
PFSH PFS Medical History Deep vein thrombosis (DVT) High-risk in third trimester History of marijuana use Surgical History (Updated 10/14/21 @ 09:13 by Graciela Jasso MD) H/O wisdom tooth extraction (~2001) History of appendectomy (~08/2019) Status post breast reduction (~01/2004) Status post repair of anterior cruciate ligament (~05/2001) Social History Smoking Status: Former smoker Meds Home Medications and Allergies Home Medications Medication Instructions Recorded Confirmed Type calcium carbonate 500 mg-vitamin 1 tab PO DAILY 09/28/21 11/05/21 History D3 3.125 mcg (125 unit) tablet enoxaparin 40 mg/0.4 mL mg subcut 09/28/21 11/04/21 History subcutaneous syringe prenat.vits,vivi,has-natx-mksod 1 tab PO QDAY 09/28/21 11/05/21 History Allergies Allergy/AdvReac Type Severity Reaction Status Date / Time [place] Allergy Severe Rash Uncoded 11/04/21 09:32 Results Labs Labs: Laboratory Results - last 24 hr 11/05/21 11/05/21 06:55 07:50 Urine Opiates Screen Negative Ur Oxycodone Screen Negative Urine Methadone Screen Negative Ur Propoxyphene Screen Negative Ur Barbiturates Screen Negative U Tricyclic Antidepress Negative Ur Phencyclidine Scrn Negative Ur Amphetamines Screen Negative U Methamphetamines Scrn Negative U Benzodiazepines Scrn Negative Urine Cocaine Screen Negative U Marijuana (THC) Screen Negative Ur Drug Screen Comment See Note SARS-CoV-2 (PCR) Negative SARS-CoV-2 Vital Signs Vital Signs: Last Vital Signs Temp 97.9 F 11/05/21 11:25 Pulse 91 11/05/21 13:20 Resp 18 11/05/21 11:25 BP 134/70 11/05/21 13:20 Pulse Ox 97 11/05/21 06:27 Weight: 90.31 kg Height: 175.26 cm Anesthesia Procedures Epidural Insertion Patient Location: OB Start Time: 13:01 Stop Time: 13:32 Start Date: 11/05/21 Stop Date: 11/05/21 Reason for Block: primary anesthetic Patient Position: sitting Performed By: Jerry Wood Preanesthetic Checklist: IV checked, risks and benefits discussed, surgical consent, monitors and equipment checked, pre-op evaluation, timeout performed and anesthesia consent Prep: chlorhexidine gluconate Monitoring: blood pressure monitoring, alarm security or surveillance monitor, continuous pulse oximetry and heart rate Approach: midline Vertebral Space: lumbar (1-5) Epidural Technique: HAYDEN saline Needle Type: Tuohy needle Injection Technique: continuous catheter (catheter) Needle gauge: 17 Needle Length (cm): 10 cm Needle Insertion Depth (cm): 5 Catheter Gauge: 19 Catheter Type: multi-orifice Catheter at skin depth (cm): 10 Test Dose Result: negative and lidocaine 1.5% with epinephrine 1 to 200,000
[2021-11-05] MEDS: PHENYLEPHRINE 100 MCG/ML SYRINGE IVP ×3 (14:12→19:45)
[2021-11-05] MEDS: OXYTOCIN 30 unit/500 ML in NS 30 UNIT/500 ML BAG IVPB (15:53)
[2021-11-05 15:56] LABS: Basophils Percent Auto 0.1 % (0.0-3.0); Hematocrit 38.8 % (33.0-51.0); Hemoglobin* 13.3 gm/dL (12.0-16.0); Immature Granulocytes Abs Auto 0.03 K/uL (0.00-0.30); Lymphocytes Percent Auto 7.3 % (20-44); Mean Corpuscular HGB Conc 34 gm/dL (32-36); Mean Corpuscular Hemoglobin 32 pg (26-34); Mean Corpuscular Volume 92 fL (80-100); Monocytes Percent Auto 2.7 % (0.0-11.0); Neutrophils Percent Auto 89.7 % (42.0-72.0); Platelet Count* 217 K/uL (140-440); RDW Coefficient of Variation % 12.3 % (11.5-15.5); Red Blood Count 4.21 m/uL (4.00-5.20)
[2021-11-05 16:01] LABS: Slide Review Reflex No
[2021-11-05] MEDS: ONDANSETRON 2 MG/ML inj 4 MG IV (19:32)
--- NOTE | 2021-11-05 21:14 | PM.OBPNL ---
Pain Control Time Seen by Provider: 20:30 Date Seen: 11/05/21 Pain control: epidural Comments: Patient resting comfortably with epidural. Supported by partner. Contractions Monitor mode: External Contraction frequency: 8 Contraction pattern: Irregular Contraction intensity: Moderate Pelvic Exam Dilation (cm): Complete Station: 0 Comments: Moderate amount of bloody show Fetus (Single) Amniotic Membrane Status: SROM status: Category ll Comments: Baseline 145. Moderate variability. 15x15 accelerations present. Decelerations present, occasional variables. Regular contractions noted. Assessment and Plan Comments: Assessment: 36 yo with IUP at @ 40w 5d gestational age Patient is coping well with challenges of labor Comfortable with epidural. Labor type:Induced labor Category 2 FHR pattern. Labor complicated by: History of DVT and GBS Plan: Continue with routine intrapartum cares as ordered Continue with pitocin augmentation. Continue with GBS prophylaxis Patient has epidural, continue with current plan Practice pushes attempted with no to little descent Labor down in high fowlers to encourage descent Continue to monitor Anticipate vaginal .
[2021-11-05] MEDS: LACTATED RINGERS 1000 ML 1,000 ML 122 ML IV (23:20)
[2021-11-06] VITALS (34 sets, daily range): BP systolic 92–139; BP diastolic 55–82; PULSE 87–125; RESP 16–18; TEMP 36.3–37.7; O2SAT 95–99
--- NOTE | 2021-11-06 02:48 | PM.OBPNL ---
Pain Control Date Seen: 11/06/21 Pain control: tolerating well and epidural Comments: I was requested to come to bedside and evaluate Rosalinda by Ayanna Man CNM. Rosalinda has been pushing for 4.5 hours and is no longer making progress. Contractions Monitor mode: External Contraction frequency: 8 Contraction pattern: Irregular Contraction intensity: Moderate Pelvic Exam Dilation (cm): complete, +1, LOT Comments: I am able to elevate vertex out of the pelvis and I attempted to manually rotate to SONIA, without success. Fetus (Single) Amniotic Membrane Status: SROM status: Category ll Comments: Baseline is currently 150, accels present, intermittent variable decels, moderate variability. Assessment and Plan Plan: Comments: Arrest of descent. station too high for vaccuum assisted vaginal delivery. I recommended , and patient agrees. We discussed risks of surgery, including bleeding, infection, damage to internal organs, risks of throboembolism, scarring. We discussed effect on future pregnancies and likely recovery. Consent form reviewed with and signed by patient.
--- NOTE | 2021-11-06 02:49 | PM.OBPNL ---
Pain Control Time Seen by Provider: 02:20 Date Seen: 11/06/21 Pain control: tolerating well and epidural Comments: Rosalinda is a at 40 6/7 that was admitted yesterday morning for IOL for history of DVT. Her labor was started per her request with AROM and augmented with Pitocin. She labored with an epidural to complete. was supportive at the bedside. She actively pushed for 4.5 hours with minimal descent even with multiple position changes during pushing. Discussed assessment by Dr. Pedro at about 4 hours, patient declined and preferred to continue pushing. At 4.5 hour patient agreed to assessment by OB. Dr. Pedro called to bedside. Vaginal exam and assessment performed with attempted manual rotation without success. Discussed vacuum extraction versus section. Recommended section, patient agrees with plan. Please see provider note for further assessment and plan. Contractions Monitor mode: External Contraction pattern: Regular Contraction intensity: Strong/Firm Pelvic Exam Station: +1 Fetus (Single) Amniotic Membrane Status: AROM status: Category ll Assessment and Plan Assessment: other (2nd stage of labor) Plan: (with Dr. Pedro)
--- NOTE | 2021-11-06 04:10 | SUR.OPER ---
PATIENT BROUGHT TO OR #5 PER CART BY OB RN's.? Patient positioned supine on OR #5 bed.?The perioperative?team supported arms bilaterally on arm boards.? Final approval of positioning by surgeon.? BABY BOY DELIVERED AT 04:03 BY SECTION. FATHER OF THE BABY BOY IN OR ROOM #5 FOR THE DELIVERY. 's OF 9 AT 1 MINUTE AND 9 AT 5 MINUTES.
--- NOTE | 2021-11-06 04:25 | SUR.OPER ---
SURGEON STATES THERE NO REASON TO SEND THE PLACENTA TO PATHOLOGY.
--- NOTE | 2021-11-06 05:08 | W.ANESCHARGE ---
Anesthesia Charges Start Date/Time Anesthesia Start Date: 11/06/21 Anesthesia Start Time: 03:39 Stop Date/Time Anesthesia Stop Date: 11/06/21 Anesthesia Stop Time: 05:05 Summary Emergency: Yes
--- NOTE | 2021-11-06 05:09 | W.PM.GYNPROC ---
Procedure Note Date Seen: 11/06/21 Procedure Details: PREOPERATIVE DIAGNOSIS: Forty weeks, 3 days gestation Arrest of descent POSTOPERATIVE DIAGNOSIS: Forty weeks, 3 days gestation Arrest of descent PROCEDURE: Primary low-transverse section SURGEON: Shayy Pedro MD ANESTHESIA: Epidural IV FLUIDS: 1800 mL crystalloid QBL: 721 mL FINDINGS: 1. Male , cephalic lie, LOT, Apgars of 9 and 9 2. Normal appearance to uterus, bilateral tubes and ovaries. COMPLICATIONS: None PROCEDURE IN DETAIL: Patient was taken to the operating room with IV running. She received cefazolin in preoperative prophylaxis. Epidural anesthesia had previously been administered. Tello catheter was inserted. Vaginal exam was performed prior to prepping the patient, lifting the head out of the pelvis as much as possible. She was prepped and draped in the usual sterile fashion. Anesthesia was tested and found to be adequate. A low-transverse skin incision was made with a scalpel and carried through to the underlying layer of fascia with the scalpel. The subcutaneous fat was dissected off the underlying fascia with Bovie. The fascia was nicked in the midline with a scalpel, and this incision was extended laterally with scissors. The rectus muscles were in the midline. Peritoneum was identified and entered bluntly. Bovie was used to widen this opening laterally. Pedrito O retractor was inserted and tightened down, providing excellent visualization of the lower uterine segment. The bladder reflection was advanced along the lower uterine segment. A bladder flap was created with a combination of sharp and blunt dissection. Low-transverse uterine incision was made with a scalpel. Incision was widened bluntly. The infant's head was grasped through the hysterotomy and delivered with the help of fundal pressure. The remainder of the body delivered without incident. Cord was clamped and cut after 30 seconds. was handed off to attending nurses. The placenta was delivered with gentle traction on the cord. The uterus was cleaned of all clots and debris with the dry lap pad. The hysterotomy was reapproximated with 0 Vicryl in a running, locked fashion. Second layer of the same suture was used in imbricating fashion to obtain hemostasis. An additional [id number] sutures were required along the left angle of the hysterotomy to obtain excellent hemostasis, as was the use of Bovie along oozing vessels adjacent to the hysterotomy. The adnexa were examined and noted to be normal in appearance. The cul-de-sac and gutters were cleansed with dampened laparotomy sponge, removing any further clots and debris. The Pedrito O retractor was removed. The hysterotomy was reexamined and found to be hemostatic. The peritoneum was reapproximated with 2 0 Vicryl in a running fashion. The rectus muscles were examined and found to be hemostatic. The fascia was reapproximated with 0 Vicryl in a running fashion. Subcutaneous fat was irrigated and Bovie used on oozing vessels. The subcutaneous fat was reapproximated with 2 0 plain gut suture in an interrupted fashion. The skin was closed with a subcuticular stitch of 4-0 Vicryl. Surgical glue was applied above this. Patient tolerated procedure well was taken to recovery area in stable condition.
--- NOTE | 2021-11-06 05:10 | W.PM.NB ---
Nerve Block Nerve Block Time Seen by Provider: 05:00 Date Seen: 11/06/21 Type of block requested by surgeon for post-operative analgesia: TAP Side: bilateral Time out performed: Yes Verification of patient name: Yes Verification of date of : Yes Site marking: not applicable Name of person performing procedure: Jose Gu Continuous monitoring Was continuous monitoring of O2 sat, B/P, quality assurance monitor, recorded every 15 minutes?: Yes Procedure Checklist: sterile prep, needles and gloves Ultrasound guided. Images saved: Yes Medications given in 5ml increments after negative aspiration: Marcaine %: 0.5 mL: 30 Needle gauge: 20 and Exparel mL: 10 Needle gauge: 20 Patient tolerated procedure well: Yes Block Charges Block Charge (with Pro Fee): TAP Bilateral Use of Ultrasound Machine for Block: Yes- US Guidance/pain block
[2021-11-06] MEDS: LACTATED RINGERS 1000 ML 1,000 ML 125 ML IV (06:20)
[2021-11-06] MEDS: KETOROLAC 30 MG/ML inj IVP ×3 (10:26→22:41)
[2021-11-06] MEDS: FERROUS SULFATE 325 MG TABLET PO (10:26)
[2021-11-06] MEDS: DOCUSATE SODIUM 100 MG CAPSULE PO (12:43)
[2021-11-06] MEDS: SIMETHICONE 80 MG TAB.CHEW PO ×2 (12:43→17:45)
[2021-11-06] MEDS: ENOXAPARIN 40 MG/0.4 ML INJ SUBCUT (16:13)
[2021-11-06] MEDS: ACETAMINOPHEN 500 MG TABLET 1000 MG PO (19:33)
[2021-11-07 04:05] VITALS: BP 104/68; PULSE 93; RESP 16; TEMP 36.6; O2SAT 99
[2021-11-07] MEDS: KETOROLAC 30 MG/ML inj IVP ×2 (05:31→11:06)
[2021-11-07 07:09] LABS: Hemoglobin* 10.5 gm/dL (12.0-16.0)
--- NOTE | 2021-11-07 08:11 | P.OBPN_ITS ---
OB - PN: A/P Assessment and Plan (1) Encounter for induction of labor: Problem details: 36yo with IUP at 40 5/7 weeks gestational Induction of Labor for hx of DVT Reactive NST. GBS status: Positive Status: Acute (2) History of DVT (deep vein thrombosis): Status: Acute (3) History of marijuana use: Status: Acute (4) Advanced maternal age in : Status: Acute Plan day: 1 Plan: routine postop care OB - PN: Subj Subjective Date Seen: 11/07/21 Patient comments: no complaints, pain well controlled, tolerating diet and flatus present [place] infant status: and doing well feeding status: breast and bottle feeding (supplementing with formula d/t sore nipples. seeing tomorrow.) OB - PN: Obj Exam Physical Exam: Vital signs: Temp Pulse Resp BP Pulse Ox O2 Del Method 97.8 F 93 16 104/68 99 11/07/21 04:05 11/07/21 04:05 11/07/21 04:05 11/07/21 04:05 11/07/21 04:05 11/07/21 04:05 Constitutional: Constitutional: no acute distress Routine HEENT Exam: Head: Present normal inspection Routine Neck Exam: Neck: Present full ROM Routine Respiratory Exam: Respiratory: Present CTA bilaterally Routine Cardiovascular Exam: Cardiovascular: Present RRR Routine Abdominal Exam: Fundus: Present firm Routine Exam: Perineum Description: Normal Routine Extremities Exam: Extremities: Present pedal edema Routine Back/Spine/Pelvis Exam: Back/Spine: Present full ROM Routine Neurological Exam: Neurological: Present alert and oriented X3 Routine Psychiatric Exam: Psychiatric: Present normal affect and normal thought process Wound Management: Examination: Present dressed, clean, dry and intact OB - PN: Obj Data Labs Labs: Laboratory Results - last 24 hr 11/07/21 06:53 Hgb 10.5 L
[2021-11-07 08:32] VITALS: BP 125/73; PULSE 84; RESP 16; TEMP 36.3; O2SAT 98
[2021-11-07] MEDS: ACETAMINOPHEN 500 MG TABLET 1000 MG PO (08:35)
[2021-11-07] MEDS: DOCUSATE SODIUM 100 MG CAPSULE PO (08:35)
[2021-11-07] MEDS: FERROUS SULFATE 325 MG TABLET PO (08:35)
[2021-11-07] MEDS: SODIUM CHLORIDE 0.9 % (FLUSH) 10 ML SYRINGE IVF (11:09)
[2021-11-07] MEDS: ENOXAPARIN 40 MG/0.4 ML INJ SUBCUT (16:21)
[2021-11-07] MEDS: SIMETHICONE 80 MG TAB.CHEW PO (16:26)
[2021-11-07 16:30] VITALS: BP 100/66; PULSE 76; RESP 16; TEMP 36.5; O2SAT 98
[2021-11-07] MEDS: IBUPROFEN 600 MG TABLET PO (16:58)
[2021-11-08 00:02] VITALS: BP 113/77; PULSE 76; RESP 16; TEMP 36.5; O2SAT 98
[2021-11-08] MEDS: OXYCODONE 5 MG TABLET PO (04:45)
--- NOTE | 2021-11-08 07:43 | PM.OBDSCS1 ---
DS: Providers Provider Date Seen: 11/08/21 Date of admission: 11/05/21 06:12 Primary care physician: Not a Local Provider Admitting Clinician: Ayanna Man CNM Attending Physician on discharge: Ayanna Man CNM Date of Discharge: 11/08/21 DS: Diagnosis Discharge Diagnosis (1) Status post delivery: Status: Acute (2) Lactating mother: Status: Acute (3) History of DVT (deep vein thrombosis): Status: Acute Exam Const: Vital Signs, click to edit/add: Vital Signs - 24 hr 11/07/21 08:32 11/07/21 16:30 11/08/21 00:02 Temperature 97.4 F L 97.7 F 97.7 F Pulse Rate [Pulse Oximeter] 84 76 76 Respiratory Rate 16 16 16 Blood Pressure [Ri ght Arm] 125/73 100/66 113/77 Pulse Oximetry 98 98 98 Oxygen Delivery Me thod Room Air Room Air Room Air Documenting provider has reviewed patient's vital signs: yes Common normals: no apparent distress, oriented x3, no limitations, healthy appearing, alert and well nourished HENMT: Common normals: normocephalic Head and scalp: normocephalic Eye: Common normals: PERRL and EOMs intact bilaterally Pupil: PERRL Neck & C-Spine: Common normals: full ROM and supple Chest: Common normals: inspection of chest normal Other: Breast exam: deferred Resp: Common normals: normal respiratory effort, no retractions and clear to auscultation bilaterally Auscultation: clear to auscultation bilaterally Cardio: Common normals: regular rate and regular rhythm Rate: regular rate Rhythm: regular rhythm GI: Common normals: Normal to inspection, nondistended, normoactive bowel sounds present, soft to palpation and non-tender Inspection: incision (Well approximated, skin glue visible and intact) Inspection of incision: healing well Palpation: soft : OB/external & speculum: Yes deferred Uterus: U/U Lochia: scant Back & Pelvis: Common normals: thoracic and lumbar spine normal to inspection and thoraco-lumbar ROM normal Extremity: Common normals: normal to inspection and full ROM Neuro: Common normals: oriented x3, moves all extremities and gait normal Sensorium/orientation: alert Psych: Common normals: mental status grossly normal, thought process normal, affect normal, speech normal and activity/motor behavior normal Speech: normal speech Thought process: normal thought process Skin: Common normals: no rashes or lesions noted General skin exam: no rashes or lesions noted OB - DS: Summary Hospital Course Hospital Course: The patient is a 36 year old G 1 P1 at 41 1/7 weeks gestation that was admitted to the [facility] on 11/05/21 for induction of labor for history of DVT. She had an uncomplicated delivery. She delivered a viable male , Misael. She is breast feeding. the patient has done well. She is voiding without issue. She is passing flatus but hasn't had a bowel movement yet. She has been up ambulating. Pain is well managed with oral pain medictions. Peripartum Data Procedures: Procedures Operation Date: 11/06/21 03:45 Actual Procedure Side Surgeon p Section Shayy Pedro MD complications: none [place] Infant Gender: Male Status at Discharge Functional status at discharge: independent ambulation Overall status at discharge: patient is progressing back to baseline Time Spent with Patient Time attestation: Total time spent providing and/or coordinating discharge services: Time spent: Less than 30 minutes Discharge Plan Discharge Disposition: Home, Self-Care Date of Admission: 11/05/21 06:12 Attending Provider on Discharge: Ayanna Man Primary Care Provider: Provider,Not a Local Condition: Improved Anticipated Discharge Date/Time: 11/08/21 12:00 Discharge Medications: New docusate sodium 100 mg Capsule 100 mg PO DAILY Qty: 0 0RF ibuprofen 600 mg Tablet 600 mg PO Q6H PRN (Reason: Pain) 30 Days Qty: 60 0RF oxycodone 5 mg Tablet 5 - 10 mg PO Q4H PRN (Reason: Pain) 7 Days Qty: 20 0RF Continued calcium carbonate-vitamin D3 500 mg-3.125 mcg (125 unit) tablet 1 tab PO DAILY prenat.vits,vivi,fui-jtii-nhujt Tablet 1 tab PO QDAY enoxaparin 40 mg/0.4 mL syringe 40 mg subcut Q24H 40 Days Qty: 40 0RF Discontinued heparin (porcine) 5,000 unit/mL solution 5,000 unit subcut Q12H Qty: 250 0RF Hold Instructions: Doctor's Order Label Comments: Patient states she has not brought to pharmacy yet Discharge Orders: Discharge Order (Routine); Ordered 11/08/21 Ordered By: Ayanna Man Patient Education: OB /Breast Feeding Activity Restrictions/Additional Instructions: Discharge instructions were reviewed with the patient including signs and symptoms of infection and home going medications. Lifting Restrictions: 20 pounds for [address] while taking narcotic pain meds. Off Work or School for 8 weeks. Symptoms to report to doctor: -Bleeding that saturates more than one pad per hour ?-Passing clots larger than the size of a golf ball ?-Pain not relieved by prescribed medication ?-Fever above 100.4 degrees Fahrenheit ?-A foul vaginal odor ?-Difficulty in emotions, mood and functions ?-Thoughts of hurting yourself and/or ?-Painful, reddened area in your breast ?-Any drainage, redness or tenderness in your IV/epidural site ?-Severe headache that doesn't improve after taking medications ?-Changes in vision, including temporary loss of vision, blurred vision, and/or light sensitivity ?-Upper abdominal pain (usually under ribs on the right side) ?-Decrease in urination or painful, frequent urinating ?-Chest pain ?-Shortness of breath ?-Tenderness or pain with redness and/swelling in the calf(s) of your leg Follow Up with [facility] in 2 and 6 weeks. consultation services are available to all mothers and babies for the first year after delivery.? To make an appointment, please call [phone]. Activity Detail: See above instruction Discharge Diet: Regular Follow Up Appointments: [facility] [Provider Group] (2 week and 6 week visits) Forms: [employer] Info Instructions
[2021-11-08 08:00] VITALS: BP 95/61; PULSE 78; RESP 16; TEMP 36.6; O2SAT 98
[2021-11-08] MEDS: FERROUS SULFATE 325 MG TABLET PO (08:06)
[2021-11-08] MEDS: DOCUSATE SODIUM 100 MG CAPSULE PO (08:07)
[2021-11-08] MEDS: IBUPROFEN 600 MG TABLET PO (08:07)
[2021-11-08] MEDS: ACETAMINOPHEN 500 MG TABLET 1000 MG PO (13:35)
== END 2021-11-08 13:55 | disposition home or self-care (01) | DRG 540 ==
PROVIDERS: Obstetrics & Gynecology; Admitting Provider Advanced Practice Midwife; Visit Provider Advanced Practice Midwife
PROC: 10D00Z1 Extraction of Products of Conception, Low, Open Approach (ICD-10-PCS; CPT 59514; principal; 2021-11-06 03:45)
DX: O99.824 Streptococcus B carrier state complicating childbirth (principal); O32.4XX0 Maternal care for high head at term, not applicable or unspecified; Z86.718 Personal history of other venous thrombosis and embolism; Z79.01 Long term (current) use of anticoagulants; Z3A.40 40 weeks gestation of pregnancy; Z37.0 Single live birth
CPT/HCPCS: 01967; 01968; 36415; 64488; 76942; 80306; 85018; 85025; 86850; 86900; 86901; 87635; 99140; A9270; J0290; J1650; J1885; J2274; J2370; J2405; J2590; J2795; J3010; J7120

== ENCOUNTER 2022-04-15 13:26 | Emergency (ER) | payer BC, SELFPAY ==
[2022-04-15 13:41] VITALS: BP 116/76; PULSE 86; RESP 16; TEMP 36.7; O2SAT 99; BMI 27.4
--- NOTE | 2022-04-15 14:11 | CRLHL7_ITS ---
For Patients: As a result of the Century Cures Act, medical imaging exams and procedure reports are released immediately into your electronic medical record. You may view this report before your referring provider. If you have questions, please contact your health care provider. INDICATION: Leg pain and swelling. TECHNIQUE: Ultrasound venous duplex lower right extremity. Compression venous exam was performed using stockton-scale, color Doppler, and spectral Doppler analysis. COMPARISON: None. FINDINGS: Deep veins: Sonographic imaging demonstrates the right common femoral, deep femoral, superficial femoral, popliteal, posterior tibial and the contralateral right common femoral veins to be fully compressible with normal color Doppler blood flow. Superficial veins: Greater saphenous vein is fully compressible. No popliteal cyst. IMPRESSION: Normal right lower extremity venous ultrasound, no sign of deep venous thrombosis. Dictated by Rickey Rodríguez MD @ 04/15/2022 3:11:08 PM (Electronically Signed)
--- NOTE | 2022-04-15 14:12 | ED.GENADULT ---
HPI - General Adult General Time Seen by Provider: 14:12 Date Seen: 04/15/22 Chief complaint: Extremity Pain/Injury, Lower Stated complaint: Blood clot in right leg Time Seen by Provider: 04/15/22 13:34 Source: patient Mode of arrival: ambulatory Limitations: no limitations History of Present Illness HPI narrative: 36-year-old female with history of DVT last year, was on Xarelto and subsequently was on Lovenox as she became . Has been off anticoagulation now for about a month, pain in the right calf. No swelling, no chest pain or shortness of breath. The concerned about repeat DVT. Related Data Home Medications Medication Instructions Recorded Confirmed calcium carbonate 500 mg-vitamin 1 tab PO DAILY 09/28/21 12/19/21 D3 3.125 mcg (125 unit) tablet prenat.vits,vivi,xie-vwwl-lvcfx 1 tab PO QDAY 09/28/21 12/19/21 Previous Rx's Medication Instructions Recorded enoxaparin 40 mg/0.4 mL 40 mg (0.4 mL) subcut Q24H 40 days 11/12/21 subcutaneous syringe #40 mL Allergies Allergy/AdvReac Type Severity Reaction Status Date / Time Jun[place]ries Allergy Severe Rash Uncoded 11/20/21 14:08 Review of Systems Status of ROS: Reports: 10 or more systems reviewed and unremarkable except as noted in History and below PFSH PFSH Medical History Deep vein thrombosis (DVT) History of marijuana use Surgical History (Updated 11/08/21 @ 07:44 by Ayanna Man CNM) H/O wisdom tooth extraction (~2001) History of appendectomy (~08/2019) Status post breast reduction (~01/2004) Status post delivery Status post repair of anterior cruciate ligament (~05/2001) Social History Smoking Status: Never smoker Do you use any of these nicotine containing products: None Second hand tobacco smoke exposure: No How often do you have a drink containing alcohol: never How often do you have six or more drinks on one occasion: Never AUDIT-C Alcohol total score: 0 Non-prescribed substance use: denies use Little interest or pleasure in doing things: several days Feeling down, depressed, or hopeless: not at all service: No Exam Narrative: Exam Narrative: General: well nourished , NAD Head: Atraumatic and normocephalic ENT: External ears and external nose are normal Eyes: Conjunctiva clear, pupils are equal reactive, external ocular motions are intact Neck: Full spontaneous range of motion of the neck Lungs: No respiratory distress Musculoskeletal: No tenderness or deformity Neurologic: No gross focal neurologic deficits Skin: No rashes Psych: Mood and affect are appropriate Const: Vital Signs, click to edit/add: Vital Signs - 24 hr 04/15/22 13:41 Temperature 98.1 F Pulse Rate [Right Pulse Oximeter] 86 Respiratory Rate 16 Blood Pressure [Ri ght Upper Arm] 116/76 Pulse Oximetry 99 Oxygen Delivery Me thod Room Air Course Course Hospital Course: Patient presents with right calf pain, concerned about recurrent DVT. No swelling. Ultrasound ordered. No chest pain shortness of breath, no tachycardia or hypoxia to suggest pulmonary embolism. Vital Signs Vital signs: Initial Vital Signs Temperature 98.1 F 04/15/22 13:41 Temperature Source Temporal Artery Scan 04/15/22 13:41 Pulse Rate 86 04/15/22 13:41 Pulse Rhythm 04/15/22 13:41 Pulse Strength 3+ Normal 04/15/22 13:41 Respiratory Rate 16 04/15/22 13:41 Blood Pressure 116/76 04/15/22 13:41 Blood Pressure Mean 89 04/15/22 13:41 Blood Pressure Position Sitting 04/15/22 13:41 Pulse Oximetry 99 04/15/22 13:41 Oxygen Delivery Method 04/15/22 13:41 Vital Signs Temperature 98.1 F 04/15/22 13:41 Pulse Rate 86 04/15/22 13:41 Respiratory Rate 16 04/15/22 13:41 Blood Pressure 116/76 04/15/22 13:41 Pulse Oximetry 99 04/15/22 13:41 Oxygen Delivery Method 04/15/22 13:41 Temperature 98.1 F 04/15/22 13:41 Pulse Rate 86 04/15/22 13:41 Respiratory Rate 16 04/15/22 13:41 Blood Pressure 116/76 04/15/22 13:41 Pulse Oximetry 99 04/15/22 13:41 Oxygen Delivery Method 04/15/22 13:41 Medical Decision Making Medical Records Medical records reviewed: Yes I reviewed the patient's medical records Lab Data Lab results reviewed: Yes I reviewed the patient's lab results Discharge Plan Discharge Clinical Impression: History of DVT (deep vein thrombosis), Pain of right calf Patient Disposition: Home, Self-Care Condition: Stable Instructions: Leg Pain (ED) Activity Level: No Restrictions Discharge Diet: Regular Prescriptions: No Action calcium carbonate-vitamin D3 500 mg-3.125 mcg (125 unit) tablet 1 tab PO DAILY prenat.vits,vivi,xiv-yguy-xoxtp Tablet 1 tab PO QDAY enoxaparin 40 mg/0.4 mL syringe 40 mg subcut Q24H 40 Days Qty: 40 0RF Follow Up/Referrals: Provider,Not a Local [Primary Care Provider] - Stand Alone Forms: MyHealth Info Instructions
== END 2022-04-15 15:28 | disposition home or self-care (01) ==
PROVIDERS: Emergency Provider Family Medicine
DX: M79.661 Pain in right lower leg (principal)
CPT/HCPCS: 93971; 99283; 99284

== ENCOUNTER 2022-07-09 10:45 | Outpatient (RCR) | payer BC, SELFPAY | END 2022-07-09 11:53 | disposition home or self-care (01) | PROVIDERS: Visit Provider Advanced Practice Midwife | DX: N81.89 Other female genital prolapse (principal); Z98.891 History of uterine scar from previous surgery; R27.8 Other lack of coordination; N94.2 Vaginismus; R35.0 Frequency of micturition; Z51.89 Encounter for other specified aftercare | CPT/HCPCS: 97110; 97112; 97140; 97162; 97535 ==

== ENCOUNTER 2022-08-04 14:52 | Outpatient (CLI) | payer BC, SELFPAY ==
[2022-08-04 22:06] LABS: Basophils Absolute Auto 0.01 K/uL (0.00-0.30); Basophils Percent Auto 0.2 % (0.0-3.0); Eosinophils Absolute Auto 0.05 K/uL (0.00-0.50); Hematocrit 40.1 % (33.0-51.0); Hemoglobin* 14.2 gm/dL (12.0-16.0); Lymphocytes Absolute Auto 2.02 K/uL (0.90-2.90); Lymphocytes Percent Auto 39.3 % (20-44); Mean Corpuscular HGB Conc 35 gm/dL (32-36); Mean Corpuscular Hemoglobin 31 pg (26-34); Mean Corpuscular Volume 89 fL (80-100); Monocytes Percent Auto 7.4 % (0.0-11.0); Neutrophils Absolute Auto 2.68 K/uL (1.7-7.0); Neutrophils Percent Auto 52.1 % (42.0-72.0); Platelet Count* 218 K/uL (140-440); Red Blood Count 4.52 m/uL (4.00-5.20); White Blood Count* 5.14 K/uL (4.50-11.00)
[2022-08-04 22:13] LABS: Slide Review Reflex No
[2022-08-04 22:24] LABS: Albumin* 4.1 g/dL (3.3-5.0); Chloride* 106 mmol/L (96-114); Potassium* 3.9 mmol/L (3.6-5.1); Sodium* 138 mmol/L (135-149)
[2022-08-04 22:26] LABS: Amylase* 51 U/L (18-89); Creatinine* 0.6 mg/dL (0.5-1.5); Estimated Glomerular Filt Rate 119 ml/min
[2022-08-04 22:27] LABS: Alanine Aminotransferase* 26 U/L (4-35); Alkaline Phosphatase* 28 U/L (40-150); Aspartate Amino Transferase* 27 U/L (12-35); Bilirubin Total* 1.2 mg/dL (0.1-1.5); Calcium* 8.8 mg/dL (8.4-10.6); Carbon Dioxide* 23 mmol/L (20-32); Glucose* 113 mg/dL (60-115); Lipase* 147 U/L (23-300); Total Protein* 6.7 g/dL (6.0-8.3)
[2022-08-04 22:43] LABS: Blood Urea Nitrogen* 8 mg/dL (5-24)
== END 2022-08-04 14:53 | disposition home or self-care (01) ==
PROVIDERS: Visit Provider Nurse Practitioner Family
DX: R10.9 Unspecified abdominal pain (principal); R11.0 Nausea; R19.7 Diarrhea, unspecified
CPT/HCPCS: 80053; 82150; 83690; 85025

== ENCOUNTER 2022-08-07 06:15 | Outpatient (CLI) | payer BC, SELFPAY | END 2022-08-07 06:16 | disposition home or self-care (01) | LOC: NFLDREF 08-08 10:40 | PROVIDERS: Visit Provider Nurse Practitioner Family | DX: R19.7 Diarrhea, unspecified (principal); R10.9 Unspecified abdominal pain; R11.0 Nausea | CPT/HCPCS: 87045; 87046; 87077; 87177; 87209; 87338; 87427; 87493 ==

== ENCOUNTER 2022-08-18 07:05 | Outpatient (CLI) | payer BC, SELFPAY ==
--- NOTE | 2022-08-18 07:15 | CRLHL7_ITS ---
For Patients: As a result of the Century Cures Act, medical imaging exams and procedure reports are released immediately into your electronic medical record. You may view this report before your referring provider. If you have questions, please contact your health care provider. INDICATION: Epigastric pain TECHNIQUE: Ultrasound abdomen limited. Sonographic images of the right upper quadrant were obtained using stockton-scale and color Doppler images. COMPARISON: None FINDINGS: Liver: Normal in size and echotexture. No masses. No intrahepatic biliary dilatation. Gallbladder: No stones or sludge. Normal wall thickness. No pericholecystic fluid. Common bile duct: 3 mm. Pancreas: Normal. Right kidney: 12.1 cm. Normal echotexture and cortex. No masses, stones, or hydronephrosis. Vasculature: Proximal abdominal aorta and IVC are normal. IMPRESSION: Unremarkable right upper quadrant ultrasound. Dictated by Jose Yen MD @ 08/18/2022 8:17:08 AM (Electronically Signed)
== END 2022-08-18 07:06 | disposition home or self-care (01) ==
LOC: US 07:06
PROVIDERS: PCP Nurse Practitioner Family; Visit Provider Nurse Practitioner Family
DX: R10.13 Epigastric pain (principal)
CPT/HCPCS: 76705

== ENCOUNTER 2022-09-24 16:21 | Outpatient (CLI) | payer BC, SELFPAY | END 2022-09-24 16:22 | disposition home or self-care (01) | LOC: AMB 09-26 05:27 | PROVIDERS: PCP Nurse Practitioner Family; Visit Provider Family Medicine | DX: M54.9 Dorsalgia, unspecified (principal) | CPT/HCPCS: A0425; A0427 ==

== ENCOUNTER 2022-09-24 16:56 | Emergency (ER) | payer BC, SELFPAY ==
[2022-09-24 17:01] VITALS: BP 109/70; PULSE 65; RESP 16; TEMP 37.1; O2SAT 100; BMI 29.8
--- NOTE | 2022-09-24 17:16 | ED.BACK ---
HPI - Back Pain/Injury General Chief Complaint: Back Injury/Pain Stated Complaint: Non-Traumatic Back Pain Time Seen by Provider: 09/24/22 16:57 History of Present Illness HPI Narrative: This 37-year-old female comes in with significantly worsening low back pain and now radiating down her right leg. She has been having back pain on and off for the past year but nothing this severe. She comes in by ambulance and did receive an IV dose of fentanyl 25 mcg. She does not report any recent injury event or strenuous activity. Related Data Home Medications Medication Instructions Recorded Confirmed calcium carbonate 500 mg-vitamin 1 tab PO DAILY 09/28/21 08/04/22 D3 3.125 mcg (125 unit) tablet omeprazole 20 mg tablet,delayed 20 mg PO DAILY 09/24/22 09/24/22 release ondansetron 4 mg disintegrating 4 mg PO BID-TID PRN nausea/vomiting 09/24/22 09/24/22 tablet Previous Rx's Medication Instructions Recorded cyclobenzaprine 10 mg tablet 10 mg PO TID #15 tabs 09/24/22 gabapentin 100 mg capsule 100 mg PO TID #30 caps 09/24/22 ketorolac 10 mg tablet 10 mg PO Q8H 5 days #15 tabs 09/24/22 methylprednisolone 4 mg tablets in See Rx Instructions PO .COMPLEX 09/24/22 a dose pack (Medrol (Missael)) #21 ea Allergies Allergy/AdvReac Type Severity Reaction Status Date / Time [place] Allergy Severe Rash Uncoded 08/04/22 14:32 Review of Systems Status of ROS: Reports: 10 or more systems reviewed and unremarkable except as noted in History and below Narrative: Constitutional: No fevers, no weight gain or loss. Eyes: No discharge. No vision changes. HENT: No congestion, no sore throat, no ear pain. Cardiovascular: No chest pain, no palpitations. Respiratory: No shortness of breath, no wheezes, no cough. Gastrointestinal: No abdominal pain, no vomiting, no diarrhea. Genitourinary: No dysuria, no hematuria. Musculoskeletal: Low back pain radiating down the right leg. Skin: No rashes, no pruritis. Neurological: No dizziness, weakness, sensory change, speech change. Endo/Heme/Allergies: No bruising or bleeding. No polydipsia. Pysch: no suicidality, no anxiety, no insomnia. All other systems reviewed and are negative. [facility] Medical History (Updated 09/24/22 @ 17:21 by Mykel Nicole MD) History of marijuana use ?Z87.898 - Personal history of other specified conditions (ICD-10) Deep vein thrombosis (DVT) ?I82.409 - Acute embolism and thrombosis of unspecified deep veins of unspecified lower extremity (ICD-10) Surgical History (Updated 11/08/21 @ 07:44 by Ayanna Man CNM) Status post delivery ?Z98.891 - History of uterine scar from previous surgery (ICD-10) H/O wisdom tooth extraction (~2001) ?K08.409 - Partial loss of teeth, unspecified cause, unspecified class (ICD-10) Status post repair of anterior cruciate ligament (~05/2001) ?Z98.890 - Other specified postprocedural states (ICD-10) Status post breast reduction (~01/2004) ?Z98.890 - Other specified postprocedural states (ICD-10) History of appendectomy (~08/2019) ?Z90.49 - Acquired absence of other specified parts of digestive tract (ICD-10) Social History Smoking Status: Never smoker Do you use any of these nicotine containing products: None Second hand tobacco smoke exposure: No How often do you have a drink containing alcohol: 2-3 times a week How many standard drinks containing alcohol do you have on a typical day: 3 or 4 How often do you have six or more drinks on one occasion: Never AUDIT-C Alcohol total score: 4 Non-prescribed substance use: marijuana (any form) Little interest or pleasure in doing things: several days Feeling down, depressed, or hopeless: not at all service: No Exam Narrative: Exam Narrative: Constitutional: Well-developed, well-nourished, no acute distress. HEENT: Normocephalic, atraumatic. Neck: Normal range of motion. Nontender. Supple. Heart: Regular. No murmurs. Normal rate. Intact distal pulses. Lungs: Clear to auscultation. No chest discomfort. No wheezes, rhonchi, or rales. Abdomen: Normal bowel sounds. Nontender. No rebound tenderness. Genitalia: Deferred. Back: No midline tenderness when palpating along the spine. Diffuse pain in the low back right greater than left with pain radiating down the right leg. Extremities: Normal range of motion. No injury. Skin: Intact. No rash. Warm. No erythema or pallor. Neurologic: No altered sensation. No weakness. Alert and oriented. Psychiatric: No suicidality. No anxiety or depression. No insomnia. Nursing notes and vitals signs are reviewed. Const: Vital Signs, click to edit/add: Vital Signs - 24 hr 09/24/22 17:01 Temperature 98.8 F Pulse Rate [Pulse Oximeter] 65 Respiratory Rate 16 Blood Pressure [[facility]] 109/70 Pulse Oximetry 100 Oxygen Delivery Me thod Room Air Course Vital Signs Vital signs: Initial Vital Signs Temperature 98.8 F 09/24/22 17:01 Temperature Source Temporal Artery Scan 09/24/22 17:01 Pulse Rate 65 09/24/22 17:01 Respiratory Rate 16 09/24/22 17:01 Blood Pressure 109/70 09/24/22 17:01 Blood Pressure Mean 83 09/24/22 17:01 Blood Pressure Position Left Lateral 09/24/22 17:01 Pulse Oximetry 100 09/24/22 17:01 Oxygen Delivery Method Room Air 09/24/22 17:01 Vital Signs Temperature 98.8 F 09/24/22 17:01 Pulse Rate 65 09/24/22 17:01 Respiratory Rate 16 09/24/22 17:01 Blood Pressure 109/70 09/24/22 17:01 Pulse Oximetry 100 09/24/22 17:01 Oxygen Delivery Method Room Air 09/24/22 17:01 Temperature 98.8 F 09/24/22 17:01 Pulse Rate 65 09/24/22 17:01 Respiratory Rate 16 09/24/22 17:01 Blood Pressure 109/70 09/24/22 17:01 Pulse Oximetry 100 09/24/22 17:01 Oxygen Delivery Method Room Air 09/24/22 17:01 MDM - Back Pain/Injury MDM Narrative Medical decision making narrative: This patient comes in with low back pain that radiates down the right leg. There was no recent strenuous activity or injury event that mandates imaging studies at this time. Her symptoms are suspicious for lumbar radiculopathy. The patient did receive IV doses of Toradol and Dilaudid here. I stated that we do not typically use narcotics to treat this condition. I did prescribe Toradol, Flexeril, Medrol Dosepak, and gabapentin. I recommended the patient make an appointment with a spine clinic for ongoing evaluation and treatment. Discharge Plan Discharge Clinical Impression: Lumbar radiculopathy Patient Disposition: Home w/ Parent or Adult Condition: Stable Additional Instructions: Take medications as indicated. Follow up with Spine Clinic for ongoing management and treatment. Call [phone] for appointment. Return if worsening. Prescriptions: New cyclobenzaprine 10 mg tablet 10 mg PO TID Qty: 15 0RF ketorolac 10 mg tablet 10 mg PO Q8H 5 Days Qty: 15 0RF gabapentin 100 mg capsule 100 mg PO TID Qty: 30 2RF methylprednisolone [Medrol (Missael)] 4 mg tablets,dose pack See Rx Instructions .ROUTE .COMPLEX Qty: 21 0RF Rx Instructions: orally per package directions No Action calcium carbonate-vitamin D3 500 mg-3.125 mcg (125 unit) tablet 1 tab PO DAILY ondansetron 4 mg tablet,disintegrating 4 mg PO BID-TID PRN (Reason: nausea/vomiting) omeprazole 20 mg tablet,delayed release (DR/EC) 20 mg PO DAILY Follow Up/Referrals: Amber Valenzuela, CLAY WASHER, SCHEDULING ANALYST [Primary Care Provider] - Stand Alone Forms: [employer] Info Instructions
[2022-09-24] MEDS: KETOROLAC 30 MG/ML inj 15 MG IVP (17:24)
[2022-09-24] MEDS: HYDROmorphone 0.5 mg/0.5 ml inj IVP (17:26)
[2022-09-24 18:09] VITALS: PULSE 71; O2SAT 97
== END 2022-09-24 18:20 | disposition home or self-care (01) ==
PROVIDERS: Emergency Provider Emergency Medicine Emergency Medical Services; PCP Nurse Practitioner Family
DX: M54.16 Radiculopathy, lumbar region (principal)
CPT/HCPCS: 96374; 96375; 99283; 99284; J1170; J1885

== ENCOUNTER 2022-11-13 09:09 | Outpatient (CLI) | payer BC, SELFPAY | END 2022-11-13 09:10 | disposition home or self-care (01) | PROVIDERS: PCP Nurse Practitioner Family; Visit Provider Nurse Practitioner Family | DX: R10.12 Left upper quadrant pain (principal); R11.0 Nausea | CPT/HCPCS: 80053; 82150; 83690; 85025 ==

== ENCOUNTER 2022-11-17 12:23 | Outpatient (CLI) | payer BC, SELFPAY ==
--- NOTE | 2022-11-17 13:00 | CRLHL7_ITS ---
For Patients: As a result of the Century Cures Act, medical imaging exams and procedure reports are released immediately into your electronic medical record. You may view this report before your referring provider. If you have questions, please contact your health care provider. Indication: LUQ PAIN, NAUSEA Technique: Postcontrast CT abdomen and pelvis. 89 cc Isovue 370 intravenous contrast. Please note that all CT scans at this facility use dose modulation, iterative reconstruction, and/or weight-based dosing when appropriate to reduce radiation dose to as low as reasonably achievable. Comparison: Ultrasound 08/18/2022 Findings: Mild dependent atelectasis is present within both lung bases. There is no pleural effusion. Normal visualized breast tissue. Subcentimeter cyst is present within the right hepatic lobe. Focal fat deposition is present within the liver adjacent to the falciform ligament. The adrenal glands are within normal limits. Normal kidneys. No hydronephrosis or solid mass. No renal stone. The spleen is mildly enlarged measuring 13.3 cm. Normal pancreas. There is no hiatal hernia. The stomach is normal. Normal duodenum and jejunum. Normal ileum. The appendix is absent. No bowel obstruction or free fluid. No abscess. IUD in the midline of the uterus. Bladder normal. Small cervical nabothian cysts. Ovaries normal. Normal ureters. No intra-abdominal or intrapelvic adenopathy. The gallbladder is nondistended. No biliary obstruction. No fracture. Impression: Mild splenomegaly. No bowel obstruction or constipation. No inflammatory changes. Subcentimeter cyst within the right hepatic lobe. No adenopathy. Please note that all CT scans at this facility use dose modulation, iterative reconstruction, and/or weight-based dosing when appropriate to reduce radiation dose to as low as reasonably achievable. Dictated by Jose Robertson MD @ 11/18/2022 9:09:15 AM (Electronically Signed)
== END 2022-11-17 12:24 | disposition home or self-care (01) ==
PROVIDERS: PCP Nurse Practitioner Family; Visit Provider Nurse Practitioner Family
DX: R10.12 Left upper quadrant pain (principal); R11.0 Nausea; R16.1 Splenomegaly, not elsewhere classified; K76.89 Other specified diseases of liver
CPT/HCPCS: 74177; Q9967

== ENCOUNTER 2022-12-02 15:09 | Outpatient (REF) | payer BC, SELFPAY ==
[2022-12-02 15:34] LABS: Albumin* 4.6 g/dL (3.3-5.0)
[2022-12-02 15:37] LABS: Alanine Aminotransferase* 18 U/L (4-35); Alkaline Phosphatase* 29 U/L (40-150); Aspartate Amino Transferase* 26 U/L (12-35); Bilirubin Direct* 0.1 mg/dL (0.0-0.5); Bilirubin Total* 1.1 mg/dL (0.1-1.5); Total Protein* 7.3 g/dL (6.0-8.3)
== END 2022-12-02 15:10 | disposition home or self-care (01) ==
LOC: NPINS 15:09
PROVIDERS: PCP Nurse Practitioner Family; Visit Provider Internal Medicine Gastroenterology
DX: R11.10 Vomiting, unspecified (principal); R17 Unspecified jaundice
CPT/HCPCS: 80076

== ENCOUNTER 2022-12-12 13:00 | Outpatient (RCR) | payer BC, SELFPAY | END 2023-03-06 15:58 | disposition home or self-care (01) | PROVIDERS: PCP Nurse Practitioner Family; Visit Provider Family Medicine | DX: M54.16 Radiculopathy, lumbar region (principal); R29.3 Abnormal posture; R53.1 Weakness; Z51.89 Encounter for other specified aftercare | CPT/HCPCS: 97110; 97161; 97530 ==

== ENCOUNTER 2022-12-18 08:04 | Outpatient (CLI) | payer BC, SELFPAY ==
--- NOTE | 2022-12-18 08:15 | CRLHL7_ITS ---
For Patients: As a result of the Century Cures Act, medical imaging exams and procedure reports are released immediately into your electronic medical record. You may view this report before your referring provider. If you have questions, please contact your health care provider. INDICATION: Chronic nausea and elevated bilirubin. TECHNIQUE: 1 mCi of Tc-99m labeled sulfur colloid has been given as part of a solid meal. Imaging has been performed to 240 minutes. FINDINGS: There is slow progressive emptying from the stomach during 240 minutes of imaging. TIME % ACTIVITY REMAINING 60 minutes 56 90 minutes 51 120 minutes 40 240 minutes 11 These values are consistent with borderline delay in gastric emptying. Delay in gastric emptying is defined as greater than 40 percent residual activity in the stomach at 120 minutes. IMPRESSION: Borderline delayed gastric emptying is identified. There is 40 percent residual activity in the stomach at 120 minutes. Dictated by Timbo Montero MD @ 12/18/2022 7:08:43 PM (Electronically Signed)
== END 2022-12-18 08:05 | disposition home or self-care (01) ==
LOC: NM 08:05
PROVIDERS: PCP Nurse Practitioner Family; Visit Provider Internal Medicine Gastroenterology
DX: R11.0 Nausea (principal); R17 Unspecified jaundice
CPT/HCPCS: 78264; A9541

== ENCOUNTER 2023-06-18 08:14 | Outpatient (CLI) | payer BC, SELFPAY | END 2023-06-18 08:15 | disposition home or self-care (01) | PROVIDERS: PCP Nurse Practitioner Family; Visit Provider Family Medicine | DX: Z13.1 Encounter for screening for diabetes mellitus (principal); Z13.220 Encounter for screening for lipoid disorders; R10.12 Left upper quadrant pain | CPT/HCPCS: 80053; 80061 ==

== ENCOUNTER 2023-07-02 07:39 | Outpatient (CLI) | payer BC, SELFPAY ==
--- NOTE | 2023-07-02 08:00 | NM_ITS ---
Patient: TRUDI CHANDLER Facility:?[facility] Patient ID:?[id number] Site Patient ID:?[id number]. Site :?1985 Study:?NM-Gallbladder Procedure KAMALA robbins/ GBEF-07/02/2023 10:02:52 AM Ordering Physician:TERRIE LEON Final Report: Indication: Left upper quadrant pain Technique: Nuclear medicine hepatobiliary scan with gallbladder ejection fraction per protocol after the intravenous administration of 5.3 millicuries technetium 99 M Mebrofenin and 1.5 micrograms of CCK. Comparison: None. Findings: Normal hepatic extraction and excretion of the radiopharmaceutical is noted. There is prompt appearance of the common bile duct followed by the gallbladder and then small-bowel. There is no enterogastric reflux. Patient`s symptoms were not reproduced after the administration of CCK. There is no significant visual contraction of the gallbladder. Calculated gallbladder ejection fraction is 0 percent. Impression: Gallbladder dysfunction Dictated by Stephen Coronado MD @ 07/02/2023 11:33:13 AM Signed by:?Stephen Coronado MD @07/02/2023 11:33:13 AM (Electronic Signature)
== END 2023-07-02 07:40 | disposition home or self-care (01) ==
LOC: NM 07:40
PROVIDERS: PCP Family Medicine; Visit Provider Family Medicine
DX: R10.12 Left upper quadrant pain (principal); K82.9 Disease of gallbladder, unspecified
CPT/HCPCS: 78227; A9537; J2805

== ENCOUNTER 2023-07-07 08:34 | Outpatient (CLI) | payer BC, SELFPAY ==
--- NOTE | 2023-07-07 08:45 | MM_ITS ---
Patient: TRUDI CHANDLER Facility:?[facility] Patient ID:?[id number] Site Patient ID:?[id number]?[birth year] Study:?XRay-Breast Bilateral 3D Diagnostiic mammogram w/cad-07/07/2023 9:17:05 AM Ordering Physician:CAROLYN Final Report: DIGITAL DIAGNOSTIC BILATERAL MAMMOGRAM USING TOMOSYNTHESIS AND COMPUTER-AIDED DETECTION LEFT BREAST ULTRASOUND CLINICAL HISTORY: LEFT breast lump. COMPARISON: None. TECHNIQUE: Digital BILATERAL mammogram in four projections. Tomosynthesis and CAD utilized. Real-time ultrasound imaging of LEFT breast with imaging documentation. BREAST COMPOSITION: There are areas of scattered fibroglandular density. FINDINGS: 3D CC/MLO BILATERAL mammogram images submitted. Postop changes of BILATERAL reduction mammoplasty. No adenopathy or suspicious calcifications. No suspicious masses or architectural distortion. Targeted LEFT breast ultrasound performed at 2 o`clock 6 cm from the nipple. Normal fibroglandular breast tissue without suspicious findings. IMPRESSION: No evidence of malignancy. RECOMMENDATIONS: Age-appropriate screening mammography. BI-RADS Category 2: Benign A lay language report of this examination will be provided to the patient. Dictated by Jose Robertson MD @ 07/07/2023 10:24:56 AM jj/Dictated by: Jose Robertson MD @ 07/07/2023 10:24:00 AM Signed by:?Jose Robertson MD @07/07/2023 12:07:56 PM (Electronic Signature)
--- NOTE | 2023-07-07 09:15 | US_ITS ---
Patient: TRUDI CHANDLER Facility:?[facility] Patient ID:?[id number] Site Patient ID:?[id number]. Site :?1985 Study:?US-Breast Left LT BREAST LMT / DR. MCGRAW TO READ-07/07/2023 9:20:22 AM Ordering Physician:?TERRIE PEREIRA M.D. Final Report: PLEASE SEE DIGITAL DIAGNOSTIC BILATERAL MAMMOGRAM PERFORMED SAME DAY CRL:nancy cruz/Dictated by: Jose Mcgraw MD @ 07/07/2023 10:25:00 AM Signed by:?Jose Mcgraw MD @07/07/2023 12:07:58 PM (Electronic Signature)
== END 2023-07-07 08:35 | disposition home or self-care (01) ==
LOC: MAMMO 08:34
PROVIDERS: PCP Family Medicine; Visit Provider Family Medicine
DX: N63.20 Unspecified lump in the left breast, unspecified quadrant (principal)
CPT/HCPCS: 76642; 77066; G0279

== ENCOUNTER 2023-07-27 07:36 | Day surgery (SDC) | payer BC, SELFPAY ==
[2023-07-27] VITALS (15 sets, daily range): BP systolic 92–113; BP diastolic 60–79; PULSE 62–91; RESP 14–18; TEMP 36.2–36.7; O2SAT 94–100; BMI 27.1
--- OUTSIDE RECORDS SUMMARY | 2023-07-27 07:38 | XMS_ITS | Referral Summary ---
Author Name Unknown Organization [facility] Address [address] [place] [address] Care Team Providers Care Crosstie Inspector Name Role Phone No Ref-Primary, Physician Primary Care Provider Allergies No known active allergies Medications Medication Sig Dispensed Refills Start Date End Date Status Vit-Fe Fumarate-FA (PNV PLUS MULTIVITAMIN) 27-1 MG TABS per tablet Take 1 tablet by mouth daily Active aspirin (ASA) 81 MG chewable tablet Take 81 mg by mouth daily Active calcium-vitamin D 500-125 MG-UNIT TABS Take 1 tablet by mouth 2 times daily Active Social History Tobacco Use Types Packs/Day Years Used Date Smoking Tobacco: Never Assessed Adolescent Education Answer Date Record ed Getting School Help Needed Not on file 12/27 Sex and Gender Information Value Date Recorded Sex Assigned at Not on file Gender Identity Not on file Sexual Orientation Not on file Plan of Treatment Not on file Care Teams Crosstie Inspector Relationship Specialty Start Date End Date No Ref-Primary, Physician PCP - General 05/15/21
--- OUTSIDE RECORDS SUMMARY | 2023-07-27 07:38 | XMS_ITS | Clinical Summary ---
Author Name Unknown Organization [facility] Address [address] [place] [id number] Care Team Providers Care Box Coverer Hand Name Role Phone No Ref-Primary, Physician Primary [...] Orientation Not on file Plan of Treatment Health Maintenance Due Date Last Done Comments ADVANCE CARE PLANNING 1985 ANNUAL REVIEW OF HM ORDERS 1985 GLUCOSE 1985 YEARLY PREVENTIVE VISIT 1985 HIV SCREENING 2000 HEPATITIS C SCREENING 09/01/2003 HEPATITIS B IMMUNIZATION (1 of 3 - 19+ 3-dose series) 2004 PAP 2006 HPV IMMUNIZATION (2 - 3-dose series) 04/30/2007 04/02/2007, 04/02/2007 DTAP/TDAP/TD IMMUNIZATION (2 - Td or Tdap) 07/06/2019 07/05/2009 COVID-19 Vaccine ( season) 2022 04/14/2021, 06/21/2020, 05/25/2020 INFLUENZA VACCINE (#1) 2022 , 01/07/2020, 03/26/2009, Additional history exists PHQ-2 (once per calendar year) 2023 MENINGITIS IMMUNIZATION Aged Out 10/10/2003 No l onger eligible based on patient's age to complete this topic IPV IMMUNIZATION Aged Out No longer e ligible based on patient's age to complete this topic Pneumococcal Vaccine: Pediatrics (0 to 5 Years) and At-Risk Patients (6 to 64 Years) Aged Out No longer eligible based on patient's age to complete this topic RSV MONOCLONAL ANTIBODY Aged Out No l onger eligible based on patient's age to complete this topic Care Teams Box Coverer Hand Relationship Specialty Start Date End Date No Ref-Primary, Physician PCP - General 05/15/21
[2023-07-27 08:10] LABS: HCG Qualitative Serum* Negative (Negative)
--- NOTE | 2023-07-27 08:12 | W.PM.H&PU ---
History & Physical Update History & Physical Update H&P Reviewed and patient assessed: No changes noted
--- NOTE | 2023-07-27 08:13 | PM.GSPRC ---
Operative Note Date of procedure: 07/27/23 Pre-op diagnosis: 1.Upper abdominal pain and nausea. Post-op diagnosis: Same Type of Procedure: 1. Laparoscopic cholecystectomy. Indications: 37-year-old female was seen in clinic for evaluation of nausea and upper abdominal pain. Patient stated that she has been experiencing discomfort in her upper abdomen for the past year. She also complained of profound nausea. She stated it started after she went through stomach flu. Her symptoms mainly improved but she continued to have daily nausea for the past year. It was worse in the morning when she woke up and worse after Eating. She noticed that certain fatty foods made her nausea worse. She first had discomfort in the right upper quadrant and then it became more epigastric. She was seen by carpenter helper hardwood flooring and an upper endoscopy was obtained that was normal. She also had an abdominal CT in November of 2022 that was normal. Patient was recommended to have a gastric emptying study and that was performed. The results were read as borderline delayed gastric emptying. She continued to have nausea and a gallbladder ultrasound was obtained in August of 2022 and that did not show any stones and no evidence of cholecystitis. Her common bile duct was normal. Patient kept a food diary last summer and noticed that gluten and dairy did increase some of her symptoms but eliminating those did not take her symptoms away completely. Patient continue to follow-up with her primary care doctor and finally a HIDA scan was obtained in June of 2023. The HIDA scan showed ejection fraction of 0. Upon her further workup patient had normal WBC and normal liver function tests with the exception of mildly elevated alkaline phosphatase of 29. On clinical exam patient had discomfort to palpation in the right upper quadrant and epigastrium with minimal discomfort in the right lower quadrant that was radiating into the right upper quadrant. Given patient's clinical history and her multiple exam findings and imaging findings, discussions were held with the patient whether or not her symptoms are caused by gallbladder disease. Multiple differential diagnoses were discussed with the patient. We also discussed that nausea is a nonspecific symptom and may or may not be improved if her gallbladder is removed. After a long discussion with the patient that laparoscopic cholecystectomy may not completely resolve her symptoms, patient would like to proceed with laparoscopic cholecystectomy. The procedure was discussed in detail. The risks associated procedure including infection, bleeding, injury to intra-abdominal organs, and injury to the common bile duct were all discussed with the patient, and she agreed to proceed. Procedure Description: After discussing the risks and benefits of the procedure, the patient signed informed consent.? The operative site was marked and the patient was brought to the operating room and placed on the operating table in supine position.? Care was taken to pad the patient's pressure points.?? The patient was then intubated by anesthesia.?? The operative site was then prepped and draped in the usual sterile fashion.? A time-out was then performed. A 5-mm laparoscopy port was placed in the left upper quadrant guided by a 5-mm laparoscope placed into a translucent trochar.~ Passage through the layers of the abdominal wall was visualized with the laparoscope.~ A pneumoperitoneum was established. A 0-degree 5-mm laparoscope was advanced into the abdomen. The abdomen was briefly surveyed, and no adhesions were noted. A 10-mm port were placed infraumbilically and two more 5 mm ports were placed on the right under direct visualization by laparoscope. The camera was then changed to 10 mm 30-degree scope and placed into the abdomen through the 10 mm port. The left upper quadrant port entrance was examined and no injury to intra-abdominal organs was identified. The gallbladder was identified, the fundus grasped and retracted cephalad. The infundibulum was grasped and retracted laterally, exposing the peritoneum overlying the triangle of Calot. This was then divided and exposed in a blunt fashion and with hook cautery. No significant acute inflammation was noted surrounding the gallbladder. Common bile duct was not identified but care was taken not to injure it. The cystic duct was clearly identified and bluntly dissected circumferentially. Cystic artery was identified and tissues around it were dissected off. The cystic artery and the cystic duct were clearly going into the gallbladder. The cystic duct was then doubly ligated with surgical clips on the patient's side and singly clipped on the gallbladder side and divided. The cystic artery was then similarly ligated with clips and divided as well. The gallbladder was dissected from the liver bed in retrograde fashion using hookcautery. The gallbladder was placed into an Endo-Catch bag and removed through the infraumbilical incision. Surgical site was examined for bleeding. No bleeding was seen in the surgical field. The right lower quadrant was examined and sirena from prior appendectomy were visualized. There was no evidence of inflammation in that area. The fascia of the infraumbilical incision was then closed with 0-0 vicryl using Albino Letty needle under direct visualization. Pneumoperitoneum was completely reduced after viewing removal of the trocars under direct vision. The skin was then closed with 4-0 monocryl and steristrips were applied. Instrument, sponge, and needle counts were correct at closure and at the conclusion of the case. The patient was transferred to PACU in stable condition. Findings: No inflammation surrounding the gallbladder. Anesthesia: GETA Surgeon: Yecenia Shelton MD Estimated blood loss (mL): 5 Specimen: Gallbladder Condition: stable Disposition: PACU
[2023-07-27] MEDS: LACTATED RINGERS 1000 ML 1,000 ML 100 ML IV (08:15)
[2023-07-27] MEDS: SODIUM CHLORIDE 0.9 % (FLUSH) 10 ML SYRINGE IVF (08:22)
[2023-07-27] MEDS: CEFAZOLIN 1 GM inj IVP (08:37)
[2023-07-27] MEDS: BUPIVACAINE 0.25% 30 ML INJECTION (08:45)
--- NOTE | 2023-07-27 09:02 | W.ANESCHARGE ---
Anesthesia Charges Start Date/Time Anesthesia Start Date: 07/27/23 Anesthesia Start Time: 08:25 Stop Date/Time Anesthesia Stop Date: 07/27/23 Anesthesia Stop Time: 09:34
[2023-07-27] MEDS: fentaNYL 100 MCG/2 ML inj 50 MCG IVP (09:45)
[2023-07-27] MEDS: LACTATED RINGERS 1000 ML 1,000 ML 25 ML IV (10:07)
[2023-07-27] MEDS: METOCLOPRAMIDE HCL 5 MG/ML INJ 10 MG IVP (11:23)
== END 2023-07-27 12:30 | disposition home or self-care (01) ==
PROVIDERS: Anesthesiology; PCP Family Medicine; Visit Provider Surgery
PROC: 0FT44ZZ Resection of Gallbladder, Percutaneous Endoscopic Approach (ICD-10-PCS; CPT 47562; principal; 2023-07-27 08:45)
DX: K82.8 Other specified diseases of gallbladder (principal); R10.13 Epigastric pain; R10.11 Right upper quadrant pain
CPT/HCPCS: 47562; 00790; 36415; 84703; 88304; J0330; J0665; J0690; J1100; J1170; J2250; J2371; J2405; J2704; J2765; J3010; J3490; J7120

== ENCOUNTER 2023-08-17 17:55 | Emergency (ER) | payer BC, SELFPAY ==
[2023-08-17 18:21] VITALS: BP 121/78; PULSE 79; RESP 16; TEMP 36.6; O2SAT 100; BMI 25.8
--- NOTE | 2023-08-17 18:25 | US_ITS ---
Patient: TRUDI CHANDLER Facility:?[facility] Patient ID:?[id number] Site Patient ID:?[id number]. Site :?1985 Study:?US-Extremity Right LEV-08/17/2023 6:57:23 PM Ordering Physician:?ER PROVIDER Final Report: INDICATION: Leg pain and swelling. TECHNIQUE: Ultrasound venous duplex lower left extremity. Compression venous exam was performed using stockton-scale, color Doppler, and spectral Doppler analysis. COMPARISON: None. FINDINGS: Deep veins: Sonographic imaging demonstrates the left common femoral, deep femoral, superficial femoral, popliteal, posterior tibial and the contralateral right common femoral veins to be fully compressible with normal color Doppler blood flow. Superficial veins: Greater saphenous vein is fully compressible. No popliteal cyst. IMPRESSION: Normal left lower extremity venous ultrasound, no sign of deep venous thrombosis. Dictated by Rickey Rodríguez MD @ 08/17/2023 8:18:46 PM Signed by:?Rickey Rodríguez MD @08/17/2023 8:18:46 PM (Electronic Signature)
--- NOTE | 2023-08-17 19:04 | ED.GENADULT ---
HPI - General Adult General Chief complaint: Extremity Pain/Injury, Lower Stated complaint: Possible blood clot R leg Time Seen by Provider: 08/17/23 18:53 History of Present Illness HPI narrative: Patient here with suspected DVT in right calf. She has had this before . Had surgery three weeks ago with gallbladder removal. Because of insurance reasons, had a hard time getting started on blood thinners. She took lovenox the first week and now 10 mg Xarlto. Redness and pain started in calf this morning. 37-year-old woman presenting to the emergency department with concern of pain and possible clot in her right calf. She has been experiencing pain this morning and is worried that has had a recurrence of a DVT. Did have cholecystectomy about 3 weeks ago and with coverage issues had some delayed to proper anticoagulation postop. Began to notice some redness and discomfort in her calf this morning. No chest pain or shortness of breath. History of DVT in the right calf. No clear trauma but trying to be active. Related Data Previous Rx's ?Medication ?Instructions ?Recorded ondansetron 4 mg disintegrating 4 mg PO BID-TID PRN for 12/11/22 tablet nausea/vomiting #21 tabs omeprazole 20 mg tablet,delayed 20 mg PO QDAY PRN abd pain #30 tabs 06/18/23 release rivaroxaban 10 mg tablet (Xarelto) 10 mg PO QDAY #14 tabs 08/05/23 Allergies Allergy/AdvReac Type Severity Reaction Status Date / Time [place] Allergy Severe Rash Uncoded 08/12/23 08:56 Review of Systems Status of ROS: Reports: 6 or more systems reviewed and unremarkable except as noted in History and below [facility] Medical History Diarrhea ?R19.7 - Diarrhea, unspecified (ICD-10) Anxiety ?F41.9 - Anxiety disorder, unspecified (ICD-10) History of marijuana use ?Z87.898 - Personal history of other specified conditions (ICD-10) Deep vein thrombosis (DVT) ?I82.409 - Acute embolism and thrombosis of unspecified deep veins of unspecified lower extremity (ICD-10) Surgical History History of esophagogastroduodenoscopy (EGD) ?Z98.890 - Other specified postprocedural states (ICD-10) Status post delivery ?Z98.891 - History of uterine scar from previous surgery (ICD-10) H/O wisdom tooth extraction (~2001) ?K08.409 - Partial loss of teeth, unspecified cause, unspecified class (ICD-10) Status post repair of anterior cruciate ligament (~05/2001) ?Z98.890 - Other specified postprocedural states (ICD-10) Status post breast reduction (~01/2004) ?Z98.890 - Other specified postprocedural states (ICD-10) History of appendectomy (~08/2019) ?Z90.49 - Acquired absence of other specified parts of digestive tract (ICD-10) Family History Uncle Pancreatic cancer Paternal Grandfather Celiac disease Pancreatitis Maternal Grandmother Cirrhosis Social History Smoking Status: Never smoker Do you use any of these nicotine containing products: None Second hand tobacco smoke exposure: No How often do you have a drink containing alcohol: 2-3 times a week How many standard drinks containing alcohol do you have on a typical day: 3 or 4 How often do you have six or more drinks on one occasion: Never AUDIT-C Alcohol total score: 4 Non-prescribed substance use: marijuana (any form) Little interest or pleasure in doing things: not at all Feeling down, depressed, or hopeless: several days service: No Exam Narrative: Exam Narrative: Breathing easily. Lungs appear to be clear. Heart in regular rate and rhythm. Examination of the right calf without Homans but some soreness with flexion and extension of the ankle. She is with some mild erythema. Non cellulitic change. Mild fullness and tenderness. Achilles intact. Const: Vital Signs, click to edit/add: Vital Signs - 24 hr 08/17/23 18:21 Temperature 97.9 F Pulse Rate [Pulse Oximeter] 79 Respiratory Rate 16 Blood Pressure [Ri ght Upper Arm] 121/78 Pulse Oximetry 100 Oxygen Delivery Me thod Room Air Documenting provider has reviewed patient's vital signs: yes Course Vital Signs Vital signs: Initial Vital Signs Temperature 97.9 F 08/17/23 18:21 Temperature Source Temporal Artery Scan 08/17/23 18:21 Pulse Rate 79 08/17/23 18:21 Pulse Rhythm Regular 08/17/23 18:21 Respiratory Rate 16 08/17/23 18:21 Blood Pressure 121/78 08/17/23 18:21 Blood Pressure Mean 92 08/17/23 18:21 Blood Pressure Position Sitting 08/17/23 18:21 Pulse Oximetry 100 08/17/23 18:21 Oxygen Delivery Method Room Air 08/17/23 18:21 Vital Signs Temperature 97.9 F 08/17/23 18:21 Pulse Rate 79 08/17/23 18:21 Respiratory Rate 16 08/17/23 18:21 Blood Pressure 121/78 08/17/23 18:21 Pulse Oximetry 100 08/17/23 18:21 Oxygen Delivery Method Room Air 08/17/23 18:21 Temperature 97.9 F 08/17/23 18:21 Pulse Rate 79 08/17/23 18:21 Respiratory Rate 16 08/17/23 18:21 Blood Pressure 121/78 08/17/23 18:21 Pulse Oximetry 100 08/17/23 18:21 Oxygen Delivery Method Room Air 08/17/23 18:21 Medical Decision Making MDM Narrative Medical decision making narrative: Understandable concerns regarding her calf particularly with history. Have requested ultrasound to confirm presence or absence of DVT. Otherwise I would suspect though this is a strain. :?1985 Study:?US-Extremity Right LEV-08/17/2023 6:57:23 PM Ordering Physician:?ER PROVIDER Final Report: INDICATION: Leg pain and swelling. TECHNIQUE: Ultrasound venous duplex lower left extremity. Compression venous exam was performed using stockton-scale, color Doppler, and spectral Doppler analysis. COMPARISON: None. FINDINGS: Deep veins: Sonographic imaging demonstrates the left common femoral, deep femoral, superficial femoral, popliteal, posterior tibial and the contralateral right common femoral veins to be fully compressible with normal color Doppler blood flow. Superficial veins: Greater saphenous vein is fully compressible. No popliteal cyst. IMPRESSION: Normal left lower extremity venous ultrasound, no sign of deep venous thrombosis. Discussed findings above with the forestry tree pruner. Related also to Rosalinda. See patient discharge plan for further discussion Medical Records Medical records reviewed: Yes I reviewed the patient's medical records Discharge Plan Discharge Clinical Impression: Pain of right calf Patient Disposition: Home, Self-Care Condition: Stable Additional Instructions: Consider applying ice pack to the area that hurts couple of times daily over the next few days. Acetaminophen for now considering your anticoagulation status. See handout on calf strain that you photographed. Might be helpful to do some of this over the next week or 2. Return for marked increase in pain, swelling, redness. Prescriptions: No Action omeprazole 20 mg tablet,delayed release (DR/EC) 20 mg PO QDAY PRN (Reason: abd pain) Qty: 30 11RF ondansetron 4 mg tablet,disintegrating 4 mg PO BID-TID PRN (Reason: for nausea/vomiting) Qty: 21 6RF Xarelto 10 mg tablet 10 mg PO QDAY Qty: 14 0RF Rx Instructions: for 14 days. Start Xarelto after you run out of Lovenox. Follow Up/Referrals: Moo Christensen MD [Primary Care Provider] - Stand Alone Forms: [facility] Info Instructions
== END 2023-08-17 21:05 | disposition home or self-care (01) ==
LOC: ED 21:01
PROVIDERS: Emergency Provider Family Medicine; PCP Family Medicine
DX: M79.661 Pain in right lower leg (principal)
CPT/HCPCS: 93971; 99283; 99284

== ENCOUNTER 2023-11-05 08:05 | Outpatient (CLI) | payer BC, SELFPAY ==
--- OUTSIDE RECORDS SUMMARY | 2023-11-05 08:08 | XMS_ITS | Clinical Summary ---
Author Organization [facility] Address [address] [place] [address] Care Team Providers Care Fulfillment Specialist Name Role Phone No Ref-Primary, Physician Primary [...] Vaccine ( season) 2022 04/14/2021, 06/21/2020, 05/25/2020 PHQ-2 (once per calendar year) 2023 INFLUENZA VACCINE (#1) 2023 , 01/07/2020, 03/26/2009, Additional history exists MENINGITIS IMMUNIZATION Aged Out 10/10/2003 No l [...] age to complete this topic Care Teams Fulfillment Specialist Relationship Specialty Start Date End Date No Ref-Primary, Physician PCP - General 05/15/21
--- OUTSIDE RECORDS SUMMARY | 2023-11-05 08:08 | XMS_ITS | Referral Summary ---
Author Organization [facility] Address [address] [place] [id number] Care Team Providers Care Veneer Glue Spreader Name Role Phone No Ref-Primary, Physician Primary [...] of Treatment Not on file Care Teams Veneer Glue Spreader Relationship Specialty Start Date End Date No Ref-Primary, Physician PCP - General 05/15/21
--- NOTE | 2023-11-05 08:15 | CRLHL7_ITS ---
For Patients: As a result of the Century Cures Act, medical imaging exams and procedure reports are released immediately into your electronic medical record. You may view this report before your referring provider. If you have questions, please contact your health care provider. INDICATION: Dating and viability. LMP 09/05/2023. COMPARISON: None. TECHNIQUE: Real-time stockton-scale imaging of the pelvis was performed. FINDINGS: Sonographic imaging demonstrates a single living intrauterine gestation. The embryo has a regular cardiac rate measuring 157 beats per minute. The embryo`s crown-rump length measures 1.4 cm which corresponds to a gestational age of 7 weeks 5 days with sonographic due date 06/18/2024. There is a normal-appearing yolk sac. The placenta has not yet developed. No evidence of a perigestational hemorrhage. The right ovary measures 3.0 x 2.2 x 1.3 cm and the left ovary measures 3.2 x 2.2 x 1.9 cm. Corpus luteal cyst in the left ovary. No free fluid in the pelvic cul-de-sac. IMPRESSION: 1. Single living intrauterine gestation corresponding to an ultrasound gestational age of 7 weeks 5 days with sonographic due date 06/18/2024. 2. The clinical gestational age by LMP is 8 weeks 5 days. Dictated by Denia Baptiste MD @ 11/06/2023 3:52:23 AM (Electronically Signed)
== END 2023-11-05 08:06 | disposition home or self-care (01) ==
LOC: US 08:06
PROVIDERS: PCP Family Medicine; Visit Provider Advanced Practice Midwife
DX: Z34.91 Encounter for supervision of normal pregnancy, unspecified, first trimester (principal); Z3A.01 Less than 8 weeks gestation of pregnancy
CPT/HCPCS: 76817; 80053; 80061; 87491; 87591

== ENCOUNTER 2023-11-06 11:50 | Outpatient (CLI) | payer BC, SELFPAY ==
--- OUTSIDE RECORDS SUMMARY | 2023-11-07 14:11 | XMS_ITS | Clinical Summary ---
Author Organization [facility] Address [address] [place] [id number] Care Team Providers Care Sustainable Development Policy Analyst Name Role Phone No Ref-Primary, Physician Primary [...] tablet by mouth 2 times daily Active Encounters Date Type Department Care Team Description 11/06/2023 Transcribe Orders [facility] [place] [address] [place] [address] July related condition, antepartum (Primary Dx) from Last 3 Months Social History Tobacco Use Types Packs/Day Years [...] (2 - 3-dose series) 04/30/2007 04/02/2007, 04/02/2007 COVID-19 Vaccine () 12/05/2022 02/14/2022, 09/29/2021, 04/14/2021, Additional history exists PHQ-2 (once per calendar year) 2023 INFLUENZA VACCINE (#1) 2023 3, 02/14/2022, 01/17/2021, Additional history exists DTAP/TDAP/TD IMMUNIZATION (3 - Td or Tdap) 08/27/2031 08/26/2021, 07/05/2009 MENINGITIS IMMUNIZATION Aged Out 10/10/2003 No l [...] age to complete this topic Care Teams Sustainable Development Policy Analyst Relationship Specialty Start Date End Date No Ref-Primary, Physician PCP - General 05/15/21
--- OUTSIDE RECORDS SUMMARY | 2023-11-07 14:11 | XMS_ITS | Referral Summary ---
Author Organization [facility] Address [address] [place] [address] Care Team Providers Care Forensic Accountant Name Role Phone No Ref-Primary, Physician Primary Care Provider Encounters Date Type Department Care Team Description 11/06/2023 Transcribe [facility] [place] [address] [place] [address] Faizanjuly related condition, antepartum (Primary Dx) from Last 3 Months Allergies No known active allergies Medications Medication [...] of Treatment Not on file Care Teams Forensic Accountant Relationship Specialty Start Date End Date No Ref-Primary, Physician PCP - General 05/15/21
--- OUTSIDE RECORDS SUMMARY | 2023-11-07 14:11 | XMS_ITS | Encounter Summary ---
Author Organization [facility] Address [address] [place] [address] Care Team Providers Care Welding Machine Operator Arc Name Role Phone No Ref-Primary, Physician Primary Care Provider Reason for Referral * Consultation (Routine: Next available opening) - Pending Review Specialty Diagnoses / Procedures Referred By Contac t Referred To Contact Diagnoses related condition, antepartum Zachariahjuly [place] [address] [place] [address] [facility] [address] [place] [address] Referral ID Status Reason Start Date Expiration Date V isits Requested Visits Authorized [id number] Pending Review 11/06/2023 11/05/2024 1 1 Question Answer Preferred Location: [facility] - [facility] 06/18/2024 Ultrasound NONE US PROC NONE MFM Issue Advanced Maternal Age *MUST request Genetic Counseling - AMA Personal history of other venous thrombosis and embolism MFM MD Consultation (unrelated to Ultrasound findings): Yes Inflammatory Bowel Disease Clinic: Joint MFM and GI Consultation: No Chronic Kidney Disease: Joint MFM and Nephrology Consultation No Cardio-Obstetrics: Joint MFM and Cardiology Consultation No Genetic Counseling Consultation: No fax [facility] + [facility] - [facility] [place] - [phone] Comments There is no height or weight on file to calculate BMI. >> Patient may proceed with recommendations for further testing as directed by the Maternal Medicine Specialist >> >> If requesting Echo: MFM will determine appropriate location for exam due to indication. Please be aware that coverage of these services is subject to the terms and limitations of your health insurance plan. Call member services at your health plan with any benefit or coverage questions. Encounter Details Date Type Department Care Team (Latest Contact Info) Description 11/06/2023 Transcribe Orders [facility] [place] [address] [place] [address] Bina Black [facility] [address] [facility] [place] [address] related condition, antepartum (Primary Dx) Social History Tobacco Use Types Packs/Day Years Used Date Smoking Tobacco: Never Assessed Adolescent Education Answer Date Record ed Getting School Help Needed Not on file 12/27 Sex and Gender Information Value Date Recorded Sex Assigned at Not on file Gender Identity Not on file Sexual Orientation Not on file documented as of this encounter Plan of Treatment Scheduled Referrals Name Type Priority Associated Diagnoses Orde r Schedule [facility] Med Ctr Referral - Referral Routine: Next available opening related condition, antepartum Expected: 11/06/2023 (Approximate), Expires: 05/04/2024 documented as of this encounter Visit Diagnoses Diagnosis related condition, antepartum- Primary documented in this encounter Care Teams Welding Machine Operator Arc Relationship Specialty Start Date End Date No Ref-Primary, Physician PCP - General 05/15/21 documented as of this encounter
== END 2023-11-06 11:51 | disposition home or self-care (01) ==
LOC: NFLDREF 11-07 14:09
PROVIDERS: PCP Family Medicine; Referring Provider Family Medicine; Visit Provider Physician Assistant
DX: Z34.91 Encounter for supervision of normal pregnancy, unspecified, first trimester (principal); R17 Unspecified jaundice
CPT/HCPCS: 80076; 86592; 86703; 86704; 86706; 86762; 86787; 86803; 86850; 86900; 86901; 87086; 87340

== ENCOUNTER 2023-12-11 10:11 | Day surgery (SDC) | payer BC, SELFPAY ==
--- OUTSIDE RECORDS SUMMARY | 2023-12-11 10:14 | XMS_ITS | Encounter Summary ---
Author Organization [facility] Address [address] [place] [address] Care Team Providers Care Collections Specialist Name Role Phone No Ref-Primary, Physician Primary Care Provider Encounter Details Date Type Department Care Team (Latest Contact Info) Description 12/05/2023 Travel Social History Tobacco Use Types Packs/Day Years Used Date Smoking Tobacco: Never Assessed Adolescent Education Answer Date Record ed Getting School Help Needed Not on file 12/27 Estimated Date of Delivery Comme nts Yes 06/18/2024 Based on Ultraso und Sex and Gender Information Value Date Recorded Sex Assigned at Not on file Gender Identity Not on file Sexual Orientation Not on file documented as of this encounter Plan of Treatment Not on file documented as of this encounter Visit Diagnoses Not on filedocumented in this encounter Care Teams Collections Specialist Relationship Specialty Start Date End Date No Ref-Primary, Physician PCP - General 05/15/21 documented as of this encounter
--- OUTSIDE RECORDS SUMMARY | 2023-12-11 10:14 | XMS_ITS | Encounter Summary ---
Author Organization [place] Address [address] [place] [address]. [place] [address] Care Team Providers Care Banking Services Advisor Name Role Phone No Ref-Primary, Physician Primary Care Provider Reason for Visit * Diagnostic Imaging Ultrasound (Routine) - Pending Review Specialty Diagnoses / Procedures Referred By Contac t Referred To Contact Radiology. Diagnoses Personal history of venous thrombosis and embolism Procedures Maternal US OB Comp 1st Tri Single Maternal Nuchal Translucency Celia Simmons MD [address] [facility] [address] [place] [address] Referral ID Status Reason Start Date Expiration Date V isits Requested Visits Authorized [id number] Pending Review 11/09/2023 11/08/2024 1 1 Encounter Details Date Type Department Care Team (Latest Contact Info) Description 12/10/2023 10:12 AM CDT - 12/10/2023 11:59 PM CDT Hospital Encounter [facility] [place] [address] [facility] [address] [place] [phone] Celia Simmons MD [address] [facility] [address] [place], [place] [id number] Annel Miranda MD [address] [facility] [address] [place], [place] [id number] Personal history of venous thrombosis and embolism Discharge Disposition: Home or Self Care Social History Tobacco Use Types Packs/Day Years [...] on file documented as of this encounter Medications at Time of Discharge Medication Sig Dispensed Refills Start Date End Date aspirin (ASA) 81 MG chewable tablet Take 81 mg by mouth daily calcium-vitamin D 500-125 MG-UNIT TABS Take 1 tablet by mouth 2 times daily Vit-Fe Fumarate-FA (PNV PLUS MULTIVITAMIN) 27-1 MG TABS per tablet Take 1 tablet by mouth daily documented as of this encounter Plan of Treatment Not on file documented as of this encounter Procedures Procedure Name Priority Date/Time Associated Diagnosis Comments MFM US OB COMPLETE 1ST TRI SINGLE Routine 12/10/2023 11:10 AM CDT Personal history of venous thrombosis and embolism documented in this encounter Results * Maternal US OB Comp 1st Tri Single (12/10/2023 11:10 AM CDT) Anatomical Region Laterality Modality Ultrasound 12/10/2023 10:5 7 AM CDT Impressions 12/10/2023 11:43 AM CDT IMPRESSION ----- 1. Leary at 12w 5d gestational age, 12w1d by CRL. 2. No cardiac activity is present - demise 3. Posterior placenta Narrative 12/10/2023 11:43 AM CDT ?1st Trim ----- Pat. Name: TRUDI CHANDLER ? Study Date: ??12/10/2023 10:57am Pat. NO: ??[id number] ?Referring ??MD: JULY CHRISTOPHER Site: ? Promotions Representative: Moni Glass RDMS : ??1985 ?Age: ?? 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 View: Sufficient ----- Leary . Number of fetuses: 1 DATING ----- ? Date ?Details ?Gest. age ?JN LMP ?09/05/2023 ? 13 w + 5 d ? 06/11/2024 Previous U/S ?11/05/2023 ?GA, GA 7 w + 5 d ? 12 w + 5 d ? 06/18/2024 U/S ? 12/10/2023 ?based upon CRL ? 12 w + 1 d ? 06/22/2024 Assigned dating ?based on ultrasound (GA), selected on 12/10/2023 ?12 w + 5 d ? 06/18/2024 GENERAL EVALUATION ----- Cardiac activity absent Placenta: posterior Amniotic fluid: normal amount BIOMETRY ----- FHR ? 0 ?bpm CRL ? 55.9 ?mm ? 12w 1d ? [place] MATERNAL STRUCTURES ----- Cervix ?Visualized ? Appearance: Appears Closed Right Ovary ?Not examined Left Ovary ?Not examined RECOMMENDATION ----- Thank-you for referring your patient for MFM consult & ultrasound assessment. Since her consult was scheduled, she had NIPT drawn which indicated an increased risk of trisomy 21. A demise is identified today measuring 12 weeks and 1 day. We discussed that these two are likely related. She would like to have a D/C procedure with her primary OB care team in [place]. They have been notified. 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 We reviewed her prior consultation with our team in 2021 as well. She has had a negative workup for thrombophilia, but prophylactic enoxaparin is recommended in all future pregnancies given OCP associated DVT history. We recommend chromosomal analysis be sent on the products of conception, to provide additional information. I recommend that she hold her lovenox the day of the procedure (takes at night) and restart the following day, to continue for at least 4 weeks post-procedure to reduce the risk of recurrent DVT. We also discussed ambulation to reduce risk. She will continue to take a folic-containing vitamin daily. We discussed a goal of 1-2 normal menstrual cycles before attempting again (given maternal age). We reaffirmed the recommendations from [facility] for any future based on her history and her prior consultation and lab results. 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 Thank you for allowing us to share in Trudi's care today. We encouraged support for her self during this time as well - she has a sister and other family that she describes as good support. If you have questions regarding today's evaluation or if we can be of further service, please contact the Maternal[facility] Medicine Center. anomalies may be present but not detected I spent a total of 35 minutes on the date of this encounter including preparing to see the patient (reviewing medical records/tests), counseling and discussing the plan of care, documenting the visit in the electronic medical record, and communicating with other health customer care manager and/or care coordination. Procedure Note Annel Miranda MD - 12/10/2023 1st Trim ----- Pat. Name: TRUDI CHANDLER Study Date: 12/10/2023 10:57am Pat. 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 View: Sufficient ----- Leary . Number of fetuses: 1 DATING ----- DateDetailsGest. age JN LMP w + 5 d 06/11/2024 Previous U/S 11/05/2023 GA, GA7 w + 5 d12 w + 5 d 06/18/2024 U/S 12/10/2023ased upon CRL12 w + 1 d 06/22/2024 Assigned dating based on ultrasound (GA), selected on w + 5 d 06/18/2024 GENERAL EVALUATION ----- Cardiac activity absent Placenta: posterior Amniotic fluid: normal amount BIOMETRY ----- FHR 0bpm CRL 55.9mm 12w 1dHadlock MATERNAL STRUCTURES ----- Cervix Visualized Appearance: Appears Closed Right Ovary Not examined Left Ovary Not examined RECOMMENDATION ----- Thank-you for referring your patient for [facility] consult & ultrasoundassessment. Since her consult was scheduled, she had NIPT drawn which indicated anincreased risk of trisomy 21. A demise is identified todaymeasuring 12 weeks and 1 day. We discussed that these two are likely related. She would like tohave a D/C procedure with her primary OB care team in [place]. Theyhave been notified. 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 We reviewed her prior consultation with our team in 2021 as well. She has had a negative workup for thrombophilia, but prophylacticenoxaparin is recommended in all future pregnancies given OCP associatedDVT history. We recommend chromosomal analysis be sent on the products of conception,to provide additional information. I recommend that she hold her lovenox the day of the procedure (takes atnight) and restart the following day, to continue for at least 4 weekspost-procedure to reduce the risk of recurrent DVT. We also discussed ambulation to reduce risk. She will continue to take a folic-containing vitamin daily. We discussed a goal of 1-2 normal menstrual cycles before attemptingpregnancy again (given maternal age). We reaffirmed the recommendations from [facility] for any future basedon her history and her prior consultation and lab results. 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 Thank you for allowing us to share in Trudi's care today. We encouragedsupport for her self during this time as well - she has a sister and otherfamily that she describes as good support. If you have questions regarding today's evaluation or if we can be offurther service, please contact the M[facility] Medicine Center. anomalies may be present but not detected I spent a total of 35 minutes on the date of this encounter includingpreparing to see the patient (reviewing medical records/tests), counselingand discussing the plan of care, documenting the visit in the electronic medical record, andcommunicating with other health customer care manager and/or carecoordination. IMPRESSION ----- 1. Leary at 12w 5d gestational age, 12w1d by CRL. 2. No cardiac activity is present - demise 3. Posterior placenta Celia Simmons MD [facility] US ORDERABLE S documented in this encounter Visit Diagnoses Diagnosis Personal history of venous thrombosis and embolism documented in this encounter Care Teams Banking Services Advisor Relationship Specialty Start Date End Date No Ref-Primary, Physician PCP - General 05/15/21 documented as of this encounter
--- OUTSIDE RECORDS SUMMARY | 2023-12-11 10:14 | XMS_ITS | Encounter Summary ---
Author Organization [place] Address [address] [place] [address]. [place] [address] Care Team Providers Care Customer Service Engineer Name Role Phone No Ref-Primary, Physician Primary Care Provider Reason for Visit * Reason Comments Genetic Counseling * Consultation (Routine: Next available opening) - Pending Review Specialty Diagnoses / Procedures Referred By Contac t Referred To Contact Diagnoses Personal history of venous thrombosis and embolism Celia Simmons MD [address] [facility] [address] [place] [address] Referral ID Status Reason Start Date Expiration Date V isits Requested Visits Authorized [id number] Pending Review 11/09/2023 11/08/2024 1 1 Encounter Details Date Type Department Care Team (Late st Contact Info) Description 12/10/2023 10:15 AM CDT Office Visit [facility] [address] [facility] [address] [place] [phone] Celia Simmons MD [address] [facility] [address] [place] [address] Annel Miranda MD [address] [place] [address] [place] [address] Salome Mcguire GC [address] [place] [address] [place], [place] [address] Multigravida of advanced maternal age in first trimester (Primary Dx); Personal history of venous thrombosis and embolism; Abnormal genetic test during Social History Tobacco Use Types Packs/Day Years [...] on file documented as of this encounter Progress Notes * Salome Mcguire, KEVIN - 12/10/2023 10:[address] [facility] Genetic Counseling Consult Patient: Rosalinda Souza Date of : 1985 Date of Service: 12/10/23 Rosalinda was seen at the [facility] for genetic counseling consultation as part of her appointment for ultrasound and MFM consult. The patient was unaccompanied to today's visit. IMPRESSION/ PLAN 1. Rosalinda underwent HystyqsC15 NIPT earlier in this , which screened POSITIVE for trisomy 21. We reviewed this result in detail today and options for additional testing. She elected to proceed with ultrasound today and was considering diagnostic testing by [facility], however today's ultrasound revealed a demise. She is planning to return to her primary OB for care. We reviewed recommendation for chromosome analysis on products of conception to confirm diagnosis and assess underlying mechanism to clarify recurrence risk. 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 FAMILY HISTORY A three-generation pedigree was previously obtained, please see prior GC note from 04/23/21. The family history was updated today and is scanned under the Media tab in [employer]. It is important to note that the family history provided is based on the patient's recollection and reported in the absence of medical records. If the family history changes or if more information is obtained, the patient should contact our clinic as this may alter recommendations. No new significant findings were reported today. Otherwise, the reported family history is unremarkable for multiple miscarriages, stillbirths, defects, intellectual disabilities, known geneticconditions, and consanguinity. CARRIER SCREENING The couple underwent [employer] expanded carrier screening with our clinic in her prior . Overall, they were not found to be carriers for any of the same conditions. 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 Hypophosphatasia refers to a spectrum of conditions caused by impaired phosphorus regulation resulting in hypomineralization of bones and teeth. Adult onset hypophosphatasia may result in stress fractures and early loss of adult dentition. Odontohypophosphatasia is characterized by premature tooth loss without skeletal abnormalities. Rosalinda is at increased risk for features of adult-onset hypophosphatasia. She has not had any history of fractures or dental abnormalities. This result can be shared with her dentist and primary care provider. Option of referral to medical genetics was offered previously and declined, however this remains available if the patient is ever interested. The couple's children will have a 50% chance of inheriting her ALPL variant. It is possible that this could be associated with features of adult-onset hypophosphatasia or odontohypophosphatasia. This should be shared with their cork floor installer. RISK ASSESSMENT FOR CHROMOSOME CONDITIONS Rosalinda underwent [id number] NIPT with her primary OB which returned screen POSITIVE for trisomy 21 The results are normal for chromosome 13, chromosome 18, and sex chromosomes (no aneuploidy detected). These results increase the risk of aneuploidy for chromosome 21. We discussed the possible explanations for a positive NIPT result include: This result could represent a true positive. Using the patient's age related risk for trisomy 21 and the sensitivity and specificity of the NIPT test for [facility] laboratory, the calculated positive predictive value (the likelihood this is a real result) is approximately 89.5% (as calculated by theperforming laboratory). Trisomy 21 or Down syndrome is a variable chromosome condition that is characterized by specific facial features, low muscle tone, and variable intellectual disabilities. Somechildren with Down syndrome can also have heart defects, vision issues, hearing loss, thyroid concerns, higher chance for leukemia, among other health concerns. Down syndrome most often occurs due to nondisjunction with a low recurrence risk, however more rarely can be the result of a translocation. Chromosome structure is assessed on chromosome analysis. Rosalinda 's result could represent a false positive and her may be at low risk for aneuploidy. Given PPV noted above, there is an estimated 10.5% chance this is a false positive result. With afalse positive result, there can be a concern for confined placental mosaicism in which case there are trisomy 21 cells in the placenta, however not in the fetus. We reviewed that NIPT is a screening test and does not replace the accuracy obtained from invasive testing. Rosalinda was offered the option of diagnostic testing. We reviewed the benefits and limitations of chorionic villus sampling and amniocentesis. Both procedures have a ~1/300-1/500 chance for complications including miscarriage. We also discussed the option of close ultrasound surveillance including today's first trimester ultrasound, 2/3 complete, level II comprehensive ultrasound, and echocardiogram. We reviewed that some couples may choose to not do any diagnostic testing in a and any additional testing can be performed after delivery. ultrasound, however does not rule out or diagnose chromosome conditions. She elected to proceed with ultrasound today and was considering diagnostic testing by [facility], howevertoday's ultrasound revealed a demise. She is planning to return to her primary OB for care. We reviewed recommendation for chromosome analysis on products of conception to confirm diagnosis and assess underlying mechanism to clarify recurrence risk. GENETIC TESTING OPTIONS Genetic testing during a includes screening and diagnostic procedures. We discussed the following ultrasound options: Nuchal translucency (NT) ultrasound Ultrasound between [id number] that includes nuchal translucency measurement and nasal bone assessments Nuchal translucency refers to the space at the back of the neck where fluid builds up. All babies at this stage have fluid and there is only concern if there is too much fluid Nasal bone refers to the small bone in the nose. There is concern for conditions like Down syndromeif the bone cannot be seen at all This ultrasound can be done as part of first trimester screening, at the same time as another screen (NIPT), at the same time as a [facility], or if the patients does not want genetic screening. Markers on ultrasound detects about 70% of pregnancies with aneuploidy Abnormalities on NT ultrasound can also increase the risk for a defect, like a heart defect Comprehensive level II ultrasound ( Anatomy Ultrasound) Ultrasound done between 18-20 weeks gestation Screens for major defects and markers for aneuploidy (like trisomy 21 and trisomy 18) Includes looking at the fetus/baby's growth, heart, organs (stomach, kidneys), placenta, and amniotic fluid Echocardiogram Ultrasound done between 22-24 weeks gestation Screen for heart defects Recommended if there are concerns about the heart or other indications like IVF or maternal diabetes We discussed the following diagnostic options: Chorionic villus sampling ([facility]) Invasive diagnostic procedure done between 10w0d and 13w6d The procedure collects a small sample from the placenta for the purpose of chromosomal testing and/or other genetic testing Diagnostic result; more than 99% sensitivity for chromosome abnormalities Cannot screen for open neural tube defects, maternal serum AFP after 15 weeks is recommended Amniocentesis Invasive diagnostic procedure done after 15 weeks gestation The procedure collects a small sample of amniotic fluid for the purpose of chromosomal testing and/or other genetic testing Diagnostic result; more than 99% sensitivity for chromosome abnormalities Testing for AFP in the amniotic fluid can test for open neural tube defects The benefits and limitations of noninvasive screening were reviewed. Screening tests provide a riskassessment (chance) specific to the for certain chromosome abnormalities but cannotdefinitively diagnose or exclude a chromosome abnormality. Follow-up genetic counseling and consideration of diagnostic testing is recommended with any abnormal screening result. Diagnostic testing during a is more certain and can test for more conditions. However, the tests do havea risk of miscarriage that requires careful consideration. These tests can detect chromosome abnormalities with greater than 99% certainty. Results can be compromised by maternal cell contamination or mosaicism and are limited by the resolution of current genetic testing technology. There is no screening or diagnostic test that detects all forms of defects or intellectual disability. It was a pleasure to be involved with Rosalinda???s [facility]. [id number] time of the meeting was 20 minutes. Salome Mcguire MS, [facility] Licensed Genetic Counselor [facility] [email or web address] in this encounter Plan of Treatment Not on file documented as of this encounter Visit Diagnoses Diagnosis Multigravida of advanced maternal age in first trimester- Primary Personal history of venous thrombosis and embolism Abnormal genetic test during documented in this encounter Care Teams Customer Service Engineer Relationship Specialty Start Date End Date No Ref-Primary, Physician PCP - General 05/15/21 documented as of this encounter
--- OUTSIDE RECORDS SUMMARY | 2023-12-11 10:14 | XMS_ITS | Encounter Summary ---
Author Organization [place] Address [address] [place] [id number] Care Team Providers Care Data Integration Developer Name Role Phone No Ref-Primary, Physician Primary Care Provider Encounter Details Date Type Department Care Team (Latest Contact Info) Description 12/10/2023 Travel Social History Tobacco Use Types Packs/Day [...] on filedocumented in this encounter Care Teams Data Integration Developer Relationship Specialty Start Date End Date No Ref-Primary, Physician PCP - General 05/15/21 documented as of this encounter
--- OUTSIDE RECORDS SUMMARY | 2023-12-11 10:14 | XMS_ITS | Clinical Summary ---
Author Organization [place] Address [address] [place] [address] Care Team Providers Care Database Coordinator Name Role Phone No Ref-Primary, Physician Primary [...] Encounters Date Type Department Care Team Description 12/10/2023 11:45 AM CDT Office Visit [facility] Medicine [facility] [address] [facility] [address] [place] [phone] Celia Simmons MD Jones, Annel Finley MD demise before 20 weeks with retention of fetus (Primary Dx); Personal history of venous thrombosis and embolism; Multigravida of advanced maternal age in first trimester 12/10/2023 10:15 AM CDT Office Visit [facility] Medicine [facility] [address] [facility] [address] [place] [phone] Celia Simmons MD Jones, MD Maynor Valdes Kaitlyn, GC Multigravida of advanced maternal age in first trimester (Primary Dx); Personal history of venous thrombosis and embolism; Abnormal genetic test during 12/10/2023 10:12 AM CDT - 12/10/2023 11:59 PM CDT Hospital Encounter [facility] Medicine [facility] [address] [facility] [address] [facility] [address] [place] [phone] Celia Simmons MD Jones, Annel Finley MD Personal history of venous thrombosis and embolism Discharge Disposition: Home or Self Care 12/10/2023 Travel 12/05/2023 Travel 12/02/2023 PRE VISIT [facility] Medicine [facility] [address] [facility] [address] [facility] [address] [place] [phone] Nikkie Singleton, RN Genetic Counseling; Ultrasound (NT); Consult (Hx DVT, AMA, Hx CS x 1) 11/09/2023 Orders Only [facility] Maternal Medicine [facility] [address] [place] [phone] Taya Garcia RN Personal history of venous thrombosis and embolism (Primary Dx) 11/06/[address] [facility] Info [facility] [address] [place] [address] Scan, Non-Provider 11/06/2023 Transcribe Orders [facility] Medicine [place] [address] [facility] [facility] [address] [place] [phone] ChristopherJuly related condition, antepartum (Primary Dx) from Last [...] HPV IMMUNIZATION (2 - 3-dose series) 04/30/2007 04/02/2007 PHQ-2 (once per calendar year) 2023 MATERNAL SCREENING DISCUSSION 11/21/2023 COVID-19 Vaccine ( season) 2023 02/14/2022, 09/29/2021, 04/14/2021, Additional history exists INFLUENZA VACCINE (#1) 2023 3, 02/14/2022, 02/14/2022, Additional history exists RSV VACCINE (1 - Risk 1-dose series) 04/23/2024 DTAP/TDAP/TD IMMUNIZATION (3 - Td or Tdap) [...] on patient's age to complete this topic Procedures Procedure Name Priority Date/Time Associated Diagnosis Comments MFM US OB COMPLETE 1ST TRI SINGLE Routine 12/10/2023 11:10 AM CDT Personal history of venous thrombosis and embolism from Last 3 Months Results * Maternal US OB Comp 1st [...] ? Study Date: ??12/10/2023 10:57am Pat. NO: ??[id number] ?Referring ??MD: JULY CHRISTOPHER Site: ? Finger Buff Sewer: Moni Glass RDMS : ??1985 ?Age: ?? 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 View: [...] with her primary OB care team in [place]. They have been notified. 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 We reaffirmed the recommendations from [facility] for any future based on her history and her prior consultation and lab results. 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 Thank you for allowing us to [...] medical record, and communicating with other health manager urgent care and/or care coordination. Procedure Note Annel Miranda MD - 12/10/2023 1st Trim ----- Pat. Name: TRUDI CHANDLER Study Date: 12/10/2023 10:57am Pat. NO: [id number] Referring MD: MORELIA CHRISTOPHER Site: Finger Buff Sewer: Moni Glass RDMS : 1985 Age: 38 [...] referring your patient for MFM consult & ultrasoundassessment. Since her consult was scheduled, she had NIPT drawn which indicated anincreased risk of trisomy 21. A demise is identified todaymeasuring 12 weeks and 1 day. We discussed that these two are likely related. She would like tohave a D/C procedure with her primary OB care team in [place]. Theyhave been notified. She does have to [...] maternal age). We reaffirmed the recommendations from [facility] for any future basedon her history and her prior consultation and lab results. 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 Thank you for allowing us to [...] electronic medical record, andcommunicating with other health manager urgent care and/or carecoordination. IMPRESSION ----- 1. Leary at 12w 5d gestational age, 12w1d by CRL. 2. No cardiac activity is present - demise 3. Posterior placenta Celia Simmons MD [facility] ORDERABLE S from Last 3 Months Care Teams Database Coordinator Relationship Specialty Start Date End Date No Ref-Primary, Physician PCP - General 05/15/21
--- OUTSIDE RECORDS SUMMARY | 2023-12-11 10:14 | XMS_ITS | Encounter Summary ---
Author Organization [facility] Address [address] [place] [address] Care Team Providers Care Inorganic Chemistry Professor Name Role Phone No Ref-Primary, Physician Primary Care Provider Reason for Referral * Consultation (Routine: Next available opening) - Pending Review Specialty Diagnoses / Procedures Referred By Conttank t Referred To Contact Diagnoses related condition, antepartum Faizanjuly [place] [address] [place] [address] [facility] [address] [place] [address] Referral ID Status Reason Start Date Expiration Date V isits Requested Visits Authorized [id number] Pending Review 11/06/2023 11/05/2024 1 1 Question Answer Preferred Location: [facility] [place] [facility] 06/18/2024 Ultrasound NONE US PROC NONE [...] Consultation No Genetic Counseling Consultation: No fax HI + C - July Wayne - [phone] Comments There is no height or weight [...] (Latest Contact Info) Description 11/06/2023 Transcribe Orders [facility] [place] [address] [facility] [address] [place] [phone] Bina Black [facility] [address] [facility] [place] [address] related condition, antepartum (Primary Dx) Social History [...] Primary documented in this encounter Care Teams Inorganic Chemistry Professor Relationship Specialty Start Date End Date No Ref-Primary, Physician PCP - General 05/15/21 documented as of this encounter
--- OUTSIDE RECORDS SUMMARY | 2023-12-11 10:14 | XMS_ITS | Encounter Summary ---
Author Organization [facility] Address [address] [place] [address]. [place] [address] Care Team Providers Care Director Field Services Name Role Phone No Ref-Primary, Physician Primary Care Provider Reason for Visit * Reason Comments Ultrasound NT: history of DVT o n Lovenox, history of C/S, AMA, NIPT positive for T21 * Consultation (Routine: Next available opening) - Pending Review Specialty Diagnoses / Procedures Referred By Michael t Referred To Contact Diagnoses Personal history of venous thrombosis and embolism Celia Simmons MD [address] [facility] [address] [place] [address] Referral ID Status Reason Start Date Expiration Date V isits Requested Visits Authorized [id number] Pending Review 11/09/2023 11/08/2024 1 1 Encounter Details Date Type Department Care Team (Late st Contact Info) Description 12/10/2023 11:45 AM CDT Office Visit [facility] M[facility] [place] [address] [facility] [address] [place] [address] Celia Simmons MD [address] [facility] [address] [place], [place] [phone] Annel Miranda MD [address] [facility] [address] [place], [place] [phone] demise before 20 weeks with retention of fetus (Primary Dx); Personal history of venous thrombosis and embolism; Multigravida of advanced maternal age in first trimester Social History Tobacco Use Types Packs/Day Years [...] as of this encounter Progress Notes * Annel Miranda MD - 12/10/2023 11:45 AM CDT Please see full imaging report from ViewPoint program under imaging tab. demise measuring 12w1d today. Thank-you for referring your patient for [facility] consult & ultrasound assessment. Since her consult was scheduled, she had NIPT drawn which indicated an increased risk of trisomy 21. A demise is identified today measuring 12 weeks and 1 day. We discussed that these twoare likely related. She would like to have a D/C procedure with her primary OB care team in [place]. They have been notified. 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 We reaffirmed the recommendations from [facility] for any future based on her history and her prior consultation and lab results. Return to primary provider for continued OB and rn gyn care. Thank you for allowing us to share in Rosalinda's care today. We encouraged support for her self duringthis time as well - she has a [...] discussing the plan of care, documenting the visitin the electronic medical record, and communicating with other health day care aide and/or care coordination. Annel Miranda MD Maternal Medicine documented in this encounter Nursing Notes * Yamile Paulson RN - 12/10/2023 11:45 AM CDT Patient presents to [facility] for GC/NT/MFM Radiologic Consult at 12w5d due to history of DVT on Lovenox,history of C/S, AMA, NIPT positive for T21. Denies LOF, vaginal bleeding, cramping/contractions. SBAR given to [facility] MD, see their note in Epic. Patient found to have a demise on ultrasound today. [facility] notified of ultrasound finding and will help coordinate a D&C procedure for this patient. documented in this encounter Plan of Treatment Not on file documented as of this encounter Visit Diagnoses Diagnosis demise before 20 weeks with retention of fetus- Primary Personal history of venous thrombosis and embolism Multigravida of advanced maternal age in first trimester documented in this encounter Care Teams Director Field Services Relationship Specialty Start Date End Date No Ref-Primary, Physician PCP - General 05/15/21 documented as of this encounter
--- OUTSIDE RECORDS SUMMARY | 2023-12-11 10:14 | XMS_ITS | Encounter Summary ---
Author Organization [place] Address [address] [place] [address]. [place] [address] Care Team Providers Care Spool Worker Name Role Phone No Ref-Primary, Physician Primary Care Provider Encounter Details Date Type Department Care Team (Late st Contact Info) Description 11/06/2023 Medical Correspondence [facility] [address] [place] [phone] Scan, Non-Provider Social History Tobacco Use Types Packs/Day Years [...] on filedocumented in this encounter Care Teams Spool Worker Relationship Specialty Start Date End Date No Ref-Primary, Physician PCP - General 05/15/21 documented as of this encounter
--- OUTSIDE RECORDS SUMMARY | 2023-12-11 10:14 | XMS_ITS | Referral Summary ---
Author Organization [facility] Address [address] [place] [address] Care Team Providers Care Drag Car Racer Name Role Phone No Ref-Primary, Physician Primary Care Provider Encounters Date Type Department Care Team Description 12/10/2023 Travel 12/10/2023 10:12 AM CDT - 12/10/2023 11:59 PM CDT Hospital Encounter [facility] Medicine [facility] [address] [facility] [address] [place] [address] Celia Simmons MD Jones, Annel Finley MD Personal history of venous thrombosis and embolism Discharge Disposition: Home or Self Care 12/10/2023 10:15 AM CDT Office Visit [facility] Medicine [facility] [address] [facility] [address] [place] [address] Celia Simmons MD Jones, MD Maynor Valdes Kaitlyn, GC Multigravida of advanced maternal age in first trimester (Primary Dx); Personal history of venous thrombosis and embolism; Abnormal genetic test during 12/10/2023 11:45 AM CDT Office Visit [facility] Medicine [facility] [address] [facility] [address] [place] [address] Celia Simmons MD Jones, Annel Finley MD demise before 20 weeks with retention of fetus (Primary Dx); Personal history of venous thrombosis and embolism; Multigravida of advanced maternal age in first trimester 12/05/2023 Travel 12/02/[address] [facility] Maternal Medicine [facility] [address] [facility] [address] [place] [phone] Nikkie Singleton, RN Genetic Counseling; Ultrasound (NT); Consult (Hx DVT, AMA, Hx CS x 1) 11/09/[address] [facility] Maternal Medicine [facility] [address] [place] [address] Taya Garcia, TIARA Personal history of venous thrombosis and embolism (Primary Dx) 11/06/2023 Medical Correspondence [facility] Info [facility] [address] [place] [address] Scan, Non-Provider 11/06/2023 Transcribe Orders [facility] Medicine [facility] [address] [facility] [address] [place] [phone] WayneJuly related condition, antepartum (Primary Dx) from Last [...] file Plan of Treatment Not on file Procedures Procedure Name Priority Date/Time Associated Diagnosis [...] ? Study Date: ??12/10/2023 10:57am Pat. NO: ??[id number] ?Referring ??MD: MORELIA WHITE Site: ? Structural Steel Fitter: Moni Glass RDMS : ??1985 ?Age: ?? [...] ----- Thank-you for referring your patient for [facility] consult & ultrasound assessment. Since her consult was scheduled, she had NIPT drawn which indicated an increased risk of trisomy 21. A demise is identified today measuring 12 weeks and 1 day. We discussed that these two are likely related. She would like to have a D/C procedure with her primary OB care team in [place]. They have been notified. 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 We reaffirmed the recommendations from [facility] for any future based on her history and her prior consultation and lab results. Return to primary provider for continued OB and metal hardener care. Thank you for allowing us to [...] medical record, and communicating with other health care transitions nurse and/or care coordination. Procedure Note Annel Miranda MD - 12/10/2023 1st Trim ----- Sri. Name: TRUDI CHANDLER Study Date: 12/10/2023 10:57am Pat. 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 [...] with her primary OB care team in [place]. Theyhave been notified. She does have to [...] maternal age). We reaffirmed the recommendations from [facility] for any future basedon her history and her prior consultation and lab results. Return to primary provider for continued OB and metal hardener care. Thank you for allowing us to [...] electronic medical record, andcommunicating with other health care transitions nurse and/or carecoordination. IMPRESSION ----- 1. Leary at 12w 5d gestational age, 12w1d by CRL. 2. No cardiac activity is present - demise 3. Posterior placenta Celia Simmons MD IMG [facility] US ORDERABLE S from Last 3 Months Care Teams Drag Car Racer Relationship Specialty Start Date End Date No Ref-Primary, Physician PCP - General 05/15/21
--- OUTSIDE RECORDS SUMMARY | 2023-12-11 10:14 | XMS_ITS | Encounter Summary ---
Author Organization [facility] Address [address] [place] [address] Care Team Providers Care Chief Mechanical Officer Name Role Phone No Ref-Primary, Physician Primary Care Provider Reason for Visit * Reason Comments Genetic Counseling Ultrasound NT Consult Hx DVT, AMA, Hx CS x 1 Encounter Details Date Type Department Care Team (Late st Contact Info) Description 12/02/2023 PRE VISIT [facility] M[facility] [place] [address] [facility] [address] [place] [phone] Nikkie Singleton, RN Genetic Counseling; Ultrasound (NT); Consult (Hx DVT, AMA, Hx CS x 1) Social History Tobacco Use Types Packs/Day Years [...] on filedocumented in this encounter Care Teams Chief Mechanical Officer Relationship Specialty Start Date End Date No Ref-Primary, Physician PCP - General 05/15/21 documented as of this encounter
--- OUTSIDE RECORDS SUMMARY | 2023-12-11 10:14 | XMS_ITS | Encounter Summary ---
Author Organization [place] Address [facility] [facility] [place] [address] Care Team Providers Care Basin Operator Name Role Phone No Ref-Primary, Physician Primary Care Provider Reason for Referral * Consultation (Routine: Next available opening) - Pending Review Specialty Diagnoses / Procedures Referred By Contac t Referred To Contact Diagnoses Personal history of venous thrombosis and embolism Celia Simmons MD [address] [place] [address] Referral ID Status Reason Start Date Expiration Date V isits Requested Visits Authorized [id number] Pending Review 11/09/2023 11/08/2024 1 1 Question Answer Office Visit Type: MFM Consult Comments Radiologic * Consultation (Routine: Next available opening) - Pending Review Specialty Diagnoses / Procedures Referred By Contac t Referred To Contact Diagnoses Personal history of venous thrombosis and embolism Celia Simmons MD [address] [place] [address] Referral ID Status Reason Start Date Expiration Date V isits Requested Visits Authorized [id number] Pending Review 11/09/2023 11/08/2024 1 1 Encounter Details Date Type Department Care Team (Late st Contact Info) Description 11/09/2023 Orders Only [facility] Maternal Medicine [facility] [address] [place], [place] [phone] Taya Garcia, RN Personal history of venous thrombosis and embolism (Primary Dx) Social History Tobacco Use Types [...] Type Priority Associated Diagnoses Orde r Schedule [facility] Genetic Counseling Referral Routine: Next available opening Personal history of venous thrombosis and embolism Expected: 11/09/2023 (Approximate), Expires: 11/08/2024 [facility] Office Visit - [facility] Consult Referral Routine: Next available opening Personal history of venous thrombosis and embolism Expected: 11/09/2023 (Approximate), Expires: 11/08/2024 documented as of this encounter Visit Diagnoses Diagnosis Personal history of venous thrombosis and embolism- Primary documented in this encounter Care Teams Basin Operator Relationship Specialty Start Date End Date No Ref-Primary, Physician PCP - General 05/15/21 documented as of this encounter
[2023-12-11 10:24] VITALS: BMI 25.7
[2023-12-11 10:28] VITALS: BP 95/60; PULSE 73; RESP 20; TEMP 36.5; O2SAT 100
[2023-12-11] MEDS: LACTATED RINGERS 1000 ML 1,000 ML 100 ML IV (10:35)
[2023-12-11] MEDS: DOXYCYCLINE HYCLATE 200 MG in 0.9 % SODIUM CHLORIDE 250 ml 250 ML 250 MG IVPB (10:40)
[2023-12-11] MEDS: SODIUM CHLORIDE 0.9 % (FLUSH) 10 ML SYRINGE IVF (10:43)
--- NOTE | 2023-12-11 11:17 | W.ANESCHARGE ---
Anesthesia Charges Start Date/Time Anesthesia Start Date: 12/11/23 Anesthesia Start Time: 10:48 Stop Date/Time Anesthesia Stop Date: 12/11/23 Anesthesia Stop Time: 11:18
[2023-12-11 11:19] LABS: Hemoglobin* 13.8 gm/dL (12.0-16.0)
--- NOTE | 2023-12-11 11:28 | W.ANESCHARGE ---
Anesthesia Charges Start Date/Time Anesthesia Start Date: 12/11/23 Anesthesia Start Time: 11:43 Stop Date/Time Anesthesia Stop Date: 12/11/23 Anesthesia Stop Time: 12:32
[2023-12-11 12:35] VITALS: BP 106/72; PULSE 75; RESP 14; TEMP 36.9; O2SAT 99
--- NOTE | 2023-12-11 12:35 | W.ANESCHARGE ---
Anesthesia Charges Start Date/Time Anesthesia Start Date: 12/11/23 Anesthesia Start Time: 11:43 Stop Date/Time Anesthesia Stop Date: 12/11/23 Anesthesia Stop Time: 12:32
[2023-12-11] MEDS: ACETAMINOPHEN 500 MG TABLET 1000 MG PO (12:49)
[2023-12-11 12:50] VITALS: BP 104/61; PULSE 80; RESP 16; O2SAT 99
[2023-12-11 13:05] VITALS: BP 103/66; PULSE 74; RESP 16; TEMP 36.8; O2SAT 100
--- NOTE | 2023-12-11 16:33 | P.GYNPRC_ITS ---
Procedure Note Date of procedure: 12/11/23 Will [facility] bill your pro fee for this procedure?: Yes Procedure Description: Preoperative diagnosis: Missed at 12 weeks, 1 day by CRL Postoperative diagnosis: Same Procedure: Suction uterine curettage with ultrasound guidance Surgeon: Shayy Pedro MD Anesthesia: Monitored anesthesia care, paracervical block IV fluids: 600 mL crystalloid EBL: 25 mL Urine output: Approximately 100 mL Findings: 1. Exam under anesthesia revealed a mobile, anteverted uterus that was consistent in size with 12 weeks' gestation. There are no palpable adnexal masses. 2. Abundant products of conception and fluid returned with suction curettage. Complications: None Procedure in detail: Patient was taken to the operating with IV running. She had received a single IV dose of doxycycline in preoperative prophylaxis. She was placed in dorsal lithotomy position. Monitored anesthesia care was administered. She was prepped and draped in the usual sterile fashion. Her bladder was straight catheterized. Exam under anesthesia was performed for the above-noted findings. Speculum was inserted. Cervix was grasped along its anterior lip with an single-tooth tenaculum. Paracervical block was performed with a total of 10 mL of 1% l idocaine. The cervix was serially dilated to 13 Wolof. A size 12 rigid suction cannula was then passed through the cervix to the uterine fundus. Suction was applied, and the suction cannula was withdrawn along the path of insertion. This was repeated several more times, using the suction tip as a curette, until there were no obvious return products of conception. Bedside ultrasound was performed, revealing a uniform appearance to the endometrium with no obvious retained products. The tenaculum was removed from the anterior lip the cervix, and there was initially abundant bleeding, especially from the puncture wounds from the tenaculum. The patient was treated with 800 mcg of rectal misoprostol with the thought that some of the bleeding was from the uterus. After treatment of the p uncture wounds with silver nitrate, bleeding slowed markedly. The speculum was then removed from the vagina. Patient tolerated procedure well and was taken recovery area in stable condition.
== END 2023-12-11 13:23 | disposition home or self-care (01) ==
LOC: OR 10:12
PROVIDERS: PCP Family Medicine; Visit Provider Obstetrics & Gynecology
PROC: (CPT 59820; principal; 2023-12-11 11:00)
DX: O02.1 Missed abortion (principal); Z3A.12 12 weeks gestation of pregnancy
CPT/HCPCS: 59820; 00160; 00940; 01965; 36415; 76998; 85018; 86850; 86900; 86901; 88305; A9270; J1100; J2250; J2405; J2704; J3010; J7050; J7120

== ENCOUNTER 2024-02-08 08:39 | Emergency (ER) | payer BC, SELFPAY ==
[2024-02-08 08:45] VITALS: BP 113/76; PULSE 75; RESP 16; TEMP 36.7; O2SAT 100; BMI 26.6
--- NOTE | 2024-02-08 10:00 | CRLHL7_ITS ---
For Patients: As a result of the Century Cures Act, medical imaging exams and procedure reports are released immediately into your electronic medical record. You may view this report before your referring provider. If you have questions, please contact your health care provider. INDICATION: Right calf pain TECHNIQUE: Ultrasound venous duplex lower right extremity. Compression venous exam was performed using stockton-scale, color Doppler, and spectral Doppler imaging. COMPARISON: 04/15/2022 FINDINGS: Sonographic imaging demonstrates the right common femoral, deep femoral, superficial femoral, popliteal, posterior tibial and greater saphenous and the contralateral left common femoral veins to be fully compressible with normal color Doppler blood flow. IMPRESSION: Normal right lower extremity venous ultrasound, no sign of deep venous thrombosis. Dictated by Deion Fischer MD @ 02/08/2024 10:28:00 AM (Electronically Signed)
--- NOTE | 2024-02-08 10:01 | ED_ITS ---
HPI - General Adult General Chief complaint: Extremity Pain/Injury, Lower Stated complaint: RT leg pain, hx of dvt Time Seen by Provider: 02/08/24 09:46 History of Present Illness HPI narrative: This 38-year-old female comes in with pain in her right calf and is concerned about a recurrent deep venous thrombosis. She did have a DVT while being several months ago and was on Lovenox. Her unfortunately ended in miscarriage and she continued on Lovenox for another 4 weeks. She does not report any recent injury or strenuous activity. She does not have any redness or swelling. She denies having any chest pain or shortness of breath. Related Data Home Medications ?Medication ?Instructions ?Recorded ?Confirmed QYW-[id number]-UT-omega 3-fat com #1 27 cap PO 11/05/23 12/25/23 mg-1 mg-300 mg capsule Allergies Allergy/AdvReac Type Severity Reaction Status Date / Time Juniper Berries Allergy Severe Rash Uncoded 12/25/23 08:44 Review of Systems Status of ROS: Reports: 10 or more systems reviewed and unremarkable except as noted in History and below Narrative: Constitutional: No fevers, no weight gain or loss. Eyes: No discharge. No vision changes. HENT: No congestion, no sore throat, no ear pain. Cardiovascular: No chest pain, no palpitations. Respiratory: No shortness of breath, no wheezes, no cough. Gastrointestinal: No abdominal pain, no vomiting, no diarrhea. Genitourinary: No dysuria, no hematuria. Musculoskeletal: Normal range of motion. Skin: No rashes, no pruritis. Neurological: No dizziness, weakness, sensory change, speech change. Endo/Heme/Allergies: No bruising or bleeding. No polydipsia. Pysch: no suicidality, no anxiety, no insomnia. All other systems reviewed and are negative. [facility] Medical History Left breast mass ?N63.20 - Unspecified lump in the left breast, unspecified quadrant (ICD-10) Biliary dyskinesia ?K82.8 - Other specified diseases of gallbladder (ICD-10) Abnormal biliary HIDA scan ?R94.8 - Abnormal results of function studies of other organs and systems (ICD-10) Diarrhea ?R19.7 - Diarrhea, unspecified (ICD-10) Anxiety ?F41.9 - Anxiety disorder, unspecified (ICD-10) History of marijuana use ?Z87.898 - Personal history of other specified conditions (ICD-10) Deep vein thrombosis (DVT) ?I82.409 - Acute embolism and thrombosis of unspecified deep veins of unspecified lower extremity (ICD-10) Surgical History History of cholecystectomy ?Z90.49 - Acquired absence of other specified parts of digestive tract (ICD- 10) History of esophagogastroduodenoscopy (EGD) ?Z98.890 - Other specified postprocedural states (ICD-10) Status post delivery ?Z98.891 - History of uterine scar from previous surgery (ICD-10) H/O wisdom tooth extraction (~2001) ?K08.409 - Partial loss of teeth, unspecified cause, unspecified class (ICD- 10) Status post repair of anterior cruciate ligament (~05/2001) ?Z98.890 - Other specified postprocedural states (ICD-10) Status post breast reduction (~01/2004) ?Z98.890 - Other specified postprocedural states (ICD-10) History of appendectomy (~08/2019) ?Z90.49 - Acquired absence of other specified parts of digestive tract (ICD- 10) Family History (Updated 12/11/23 @ 11:26 by Shayy Pedro MD) Uncle Pancreatic cancer Paternal Grandfather Celiac disease Pancreatitis Maternal Grandmother Cirrhosis Other Stroke Social History Narrative: 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 Marital status: . Congregational/cultural needs: no. Chemical or radiation exposure: no. Pre- tobacco use: no. Pre- alcohol use: 4-6 per week. Current tobacco use: no. Current alcohol use: no. Recreational drug use: no. Dietary restrictions: no. Blood transfusion acceptable in an emergency: yes. PSYCHOSOCIAL HISTORY: History of depression or currently depressed: No. Current for past physical, emotional, or sexual mistreatment: no. Problems that will make it hard to make it to appointments: no. What is your current living situation?: I presently have a place to live Problems where you live: no known problems In the past 12 months, utilities in danger of being shut off: no In past 12 months, lack of transportation kept you from medical appts, meetings, work, or getting things needed for daily living: no In the past 12 mos, have been you worried that your food would run out before you had money to buy more?: never true In the past 12 mos, the food you bought just didn't last and you didn't have money to buy more?: never true Smoking Status: Former smoker Do you use any of these nicotine containing products: None Second hand tobacco smoke exposure: No How often do you have a drink containing alcohol: 2-3 times a week How many standard drinks containing alcohol do you have on a typical day: 3 or 4 How often do you have six or more drinks on one occasion: Never AUDIT-C Alcohol total score: 4 Non-prescribed substance use: marijuana (any form) How often does anyone, including family, friends and others, physically hurt you : never How often does anyone, including family, friends and others, insult or talk down to you: never How often does anyone, including family, friends and others, threaten you with harm: never How often does anyone, including family, friends and others, scream or curse at you: never Little interest or pleasure in doing things: not at all Feeling down, depressed, or hopeless: not at all service: No Exam Narrative: Exam Narrative: Constitutional: Well-developed, well-nourished, no acute distress. HEENT: Normocephalic, atraumatic. Neck: Normal range of motion. Nontender. Supple. Heart: Intact distal pulses. Lungs: No chest discomfort. No wheezes, rhonchi, or rales. Abdomen: Nontender. Back: Normal range of motion. Extremities: Normal range of motion. No injury. Diffuse tenderness in the right calf with no sign of redness or swelling. No pain or swelling in the upper aspects of her legs. Skin: Intact. No rash. Warm. No erythema or pallor. Neurologic: No altered sensation. No weakness. Alert and oriented. Psychiatric: No suicidality. No anxiety or depression. No insomnia. Nursing notes and vitals signs are reviewed. Const: Vital Signs, click to edit/add: Vital Signs - 24 hr 02/08/24 08:45 Temperature 98.1 F Pulse Rate [Left P ulse Oximeter] 75 Respiratory Rate 16 Blood Pressure [Ri ght Upper Arm] 113/76 Pulse Oximetry 100 Oxygen Delivery Me thod Room Air Course Vital Signs Vital signs: Initial Vital Signs Temperature 98.1 F 02/08/24 08:45 Temperature Source Temporal Artery Scan 02/08/24 08:45 Pulse Rate 75 02/08/24 08:45 Respiratory Rate 16 02/08/24 08:45 Blood Pressure 113/76 02/08/24 08:45 Blood Pressure Mean 88 02/08/24 08:45 Blood Pressure Position Sitting 02/08/24 08:45 Pulse Oximetry 100 02/08/24 08:45 Oxygen Delivery Method Room Air 02/08/24 08:45 Vital Signs Temperature 98.1 F 02/08/24 08:45 Pulse Rate 75 02/08/24 08:45 Respiratory Rate 16 02/08/24 08:45 Blood Pressure 113/76 02/08/24 08:45 Pulse Oximetry 100 02/08/24 08:45 Oxygen Delivery Method Room Air 02/08/24 08:45 Temperature 98.1 F 02/08/24 08:45 Pulse Rate 75 02/08/24 08:45 Respiratory Rate 16 02/08/24 08:45 Blood Pressure 113/76 02/08/24 08:45 Pulse Oximetry 100 02/08/24 08:45 Oxygen Delivery Method Room Air 02/08/24 08:45 Medical Decision Making [facility] Narrative Medical decision making narrative: This patient comes in with concern about pain in her right calf. She does have a somewhat recent history of deep venous thrombosis while she was . She does not report any recent injury event. There was no sign of swelling or abnormality on exam. A venous ultrasound is obtained of the right lower extremity and shows no evidence of thrombosis. This was reassuring the patient. She is okay to be discharged home to continue current plans. Discharge Plan Discharge Clinical Impression: Leg pain, right Patient Disposition: Home, Self-Care Condition: Stable Additional Instructions: Continue current plans. Follow up with MD return if worsening. Prescriptions: No Action AMD-kist-WM-omega 3-fat com #1 27-1-300 mg capsule PO Follow Up/Referrals: Moo Christensen MD [Primary Care Provider] - Stand Alone Forms: Doorman Info Instructions
--- OUTSIDE RECORDS SUMMARY | 2024-02-08 10:26 | XMS_ITS | Encounter Summary ---
Author Organization [place] Address [address] [place] [address] Care Team Providers Care Travel Attendants Name Role Phone No Ref-Primary, Physician Primary [...] Recorded Sex Assigned at Not on file Legal Sex Female 6:04 PM CDT Gender Identity Not on file Sexual Orientation Not on file documented as of this encounter Plan of Treatment Not on file documented as of this encounter Visit Diagnoses Not on filedocumented in this encounter Care Teams Travel Attendants Relationship Specialty Start Date End Date No Ref-Primary, Physician PCP - General 05/15/21 documented as of this encounter
--- OUTSIDE RECORDS SUMMARY | 2024-02-08 10:26 | XMS_ITS | Referral Summary ---
Author Organization [facility] Address [address] [place] [address] Care Team Providers Care Molding Press Operator Name Role Phone No Ref-Primary, Physician Primary Care Provider Encounters Date Type Department Care Team Description 12/10/2023 Travel 12/10/2023 10:12 AM CDT - 12/10/2023 11:59 PM CDT Hospital Encounter [facility] Medicine [facility] [address] [facility] [address] [place] [address] Celia Simmons MD Jones, Annel Finley MD Personal history of venous thrombosis and embolism Discharge Disposition: Home or Self Care 12/10/2023 10:15 AM CDT Office Visit [facility] [address] [place] [address] Celia Simmons MD Jones, MD Maynro Valdes Kaitlyn, GC Multigravida of advanced maternal age in first trimester (Primary Dx); Personal history of venous thrombosis and embolism; Abnormal genetic test during 12/10/2023 11:45 AM CDT Office Visit [facility] Medicine [facility] [address] [facility] [address] [place] [address] Celia Simmons MD Jones, Annel Finley MD demise before 20 weeks with retention of fetus (Primary Dx); Personal history of venous thrombosis and embolism; Multigravida of advanced maternal age in first trimester 12/05/2023 Travel 12/02/2023 PRE VISIT [facility] [address] [place] [address] Nikkie Singleton, RN Genetic Counseling; Ultrasound (NT); Consult (Hx DVT, AMA, Hx CS x 1) 11/09/2023 Orders Only [facility] Maternal Medicine [facility] [address] [place] [address] Taya Garcia, TIARA Personal history of venous thrombosis and embolism (Primary Dx) from Last 3 Months Allergies No known active allergies Medications Vit-Fe Fumarate-FA (PNV PLUS MULTIVITAMIN) 27-1 MG [...] AM CDT ?1st Trim ----- Pat. Name: HANNAHMAJOR ROMERONA ? Study Date: ??12/10/2023 10:57am Pat. NO: ??[id number] ?Referring ??MD: JULY [facility] Site: ? Retail Cashier Associate: Moni Glass RDMS : ??1985 ?Age: ?? [...] ----- Thank-you for referring your patient for M consult & ultrasound assessment. Since her consult was scheduled, she had NIPT drawn which indicated an increased risk of trisomy 21. A demise is identified today measuring 12 weeks and 1 day. We discussed that these two are likely related. She would like to have a D/C procedure with her primary OB care team in [place]. They have been notified. 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 We reaffirmed the recommendations from [facility] for any future based on her history and her prior consultation and lab results. Return to primary provider for continued OB and electronics research engineer care. Thank you for allowing us to [...] medical record, and communicating with other health career development coordinator and/or care coordination. Procedure Note Annel Miranda MD - 12/10/2023 1st Trim ----- Pat. Name: TRUDI CHANDLER Study Date: 12/10/2023 10:57am Pat. NO: [id number] Referring MD: JULY CHRISTOPHER Site: Retail Cashier Associate: Moni Glass RDMS : 1985 Age: 38 [...] with her primary OB care team in [place]. Theyhave been notified. She does have to [...] maternal age). We reaffirmed the recommendations from [facility] for any future basedon her history and her prior consultation and lab results. Return to primary provider for continued OB and electronics research engineer care. Thank you for allowing us to [...] electronic medical record, andcommunicating with other health career development coordinator and/or carecoordination. IMPRESSION ----- 1. Leary at 12w 5d gestational age, 12w1d by CRL. 2. No cardiac activity is present - demise 3. Posterior placenta us Celia ALEXIS [facility] US ORDERABLES Edited Res ult - Final from Last 3 Months [place] Care Teams Molding Press Operator Relationship Specialty Start Date End Date No Ref-Primary, Physician PCP - General 05/15/21
--- OUTSIDE RECORDS SUMMARY | 2024-02-08 10:26 | XMS_ITS | Clinical Summary ---
Author Organization [facility] [place] Address [address] [place] [address] Care Team Providers Care Hvac Mechanic Name Role Phone No Ref-Primary, Physician Primary Care Provider Allergies No known active allergies Medications Vit-Fe Fumarate-FA (PNV PLUS MULTIVITAMIN) 27-1 MG TABS per tablet Take 1 tablet by mouth daily Active aspirin (ASA) 81 MG chewable tablet Take 81 mg by mouth daily Active calcium-vitamin D 500-125 MG-UNIT TABS Take 1 tablet by mouth 2 times daily Active Encounters Date Type Department Care Team Description 12/10/2023 11:45 AM CDT Office Visit [facility] Medicine [facility] [address] [facility] [address] [place] [phone] Celia Simmons MD Jones, Annel Finley MD demise before 20 weeks with retention of fetus (Primary Dx); Personal history of venous thrombosis and embolism; Multigravida of advanced maternal age in first trimester 12/10/2023 10:15 AM CDT Office Visit [facility] [address] [facility] [address] [place] [phone] Celia Simmons MD Jones, MD Maynor Valdes Kaitlyn, GC Multigravida of advanced maternal age in first trimester (Primary Dx); Personal history of venous thrombosis and embolism; Abnormal genetic test during 12/10/2023 10:12 AM CDT - 12/10/2023 11:59 PM CDT Hospital Encounter [facility] Medicine [facility] [address] [facility] [address] [place] [address] Celia Simmons MD Jones, nAnel Finley MD Personal history of venous thrombosis and embolism Discharge Disposition: Home or Self Care 12/10/2023 Travel 12/05/2023 Travel 12/02/2023 PRE VISIT [facility] [address] [facility] [address] [place] [address] Nikkie Singleton, RN Genetic Counseling; Ultrasound (NT); Consult (Hx DVT, AMA, Hx CS x 1) 11/09/2023 Orders Only [facility] Medicine [facility] [address] [place] [address] Taya Garcia, TIARA Personal history of venous thrombosis and embolism (Primary Dx) from Last 3 Months Social [...] ADVANCE CARE PLANNING 1985 ANNUAL REVIEW OF ORDERS 1985 GLUCOSE 1985 YEARLY PREVENTIVE VISIT 1985 HIV SCREENING 2000 HEPATITIS C SCREENING 09/01/2003 HEPATITIS B IMMUNIZATION (1 of 3 - 19+ 3-dose series) 2004 PAP 2006 HPV IMMUNIZATION (2 - 3-dose series) 04/30/2007 04/02/2007 PHQ-2 (once per calendar year) 2023 MATERNAL SCREENING DISCUSSION 11/21/2023 COVID-19 Vaccine (2023- season) 2023 02/14/2022, 09/29/2021, 04/14/2021, Additional history exists INFLUENZA VACCINE (#1) 2023 3, 02/14/2022, 02/14/2022, Additional history exists OBGCT (OB) 02/27/2024 RSV VACCINE (1 - Risk 1-dose series) [...] Procedure Name Priority Date/Time Associated Diagnosis Comments M US OB COMPLETE 1ST TRI SINGLE Routine [...] ? Study Date: ??12/10/2023 10:57am Pat. NO: ??[id number] ?Referring ??MD: JULY CHRISTOPHER Site: ? Usability Architect: Moni Glass RDMS : ??1985 ?Age: ?? [...] with her primary OB care team in [place]. They have been notified. 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 We reaffirmed the recommendations from [facility] for any future based on her history and her prior consultation and lab results. Return to primary provider for continued OB and turf farm worker care. Thank you for allowing us to [...] medical record, and communicating with other health physician primary care sports medicine and/or care coordination. Procedure Note Annel Miranda MD - 12/10/2023 1st Trim ----- Pat. Name: TRUDI CHANDLER Study Date: 12/10/2023 10:57am Pat. NO: [id number] Referring MD: MORELIA WHITE Site: Usability Architect: Moni Glass RDMS : 1985 Age: 38 [...] ----- Thank-you for referring your patient for [facility] consult & ultrasoundassessment. Since her consult was scheduled, she had NIPT drawn which indicated anincreased risk of trisomy 21. A demise is identified todaymeasuring 12 weeks and 1 day. We discussed that these two are likely related. She would like tohave a D/C procedure with her primary OB care team in [place]. Theyhave been notified. She does have to [...] maternal age). We reaffirmed the recommendations from [facility] for any future basedon her history and her prior consultation and lab results. Return to primary provider for continued OB and turf farm worker care. Thank you for allowing us to [...] electronic medical record, andcommunicating with other health physician primary care sports medicine and/or carecoordination. IMPRESSION ----- 1. Leary at 12w 5d gestational age, 12w1d by CRL. 2. No cardiac activity is present - demise 3. Posterior placenta us Celia Simmons MD [facility] ORDERABLES Edited Res ult - Final from Last 3 Months Insurance [place] [address] [place] Care Teams Hvac Mechanic Relationship Specialty Start Date End Date No Ref-Primary, Physician PCP - General 05/15/21
--- OUTSIDE RECORDS SUMMARY | 2024-02-08 10:27 | XMS_ITS | Encounter Summary ---
Author Organization [facility] Address [address] [place] [address]. [place] [address] Care Team Providers Care Lead Machinist Name Role Phone No Ref-Primary, Physician Primary Care Provider Reason for Visit * Diagnostic Imaging Ultrasound (Routine) - Pending Review Specialty Diagnoses / Procedures Referred By Contac t Referred To Contact Radiology. Diagnoses Personal history of venous thrombosis and embolism Procedures Maternal US OB Comp 1st Tri Single Maternal Nuchal Translucency Celia Simmons MD [address] [facility] [address] [place] [address] Phone: tel: fax: Referral ID Status Reason Start Date Expiration Date V isits Requested Visits Authorized [id number] Pending Review 11/09/2023 11/08/2024 1 1 Encounter Details Date Type Department Care Team (Latest Contact Info) Description 12/10/2023 10:12 AM CDT - 12/10/2023 11:59 PM CDT Hospital Encounter [facility] M[facility] Medicine Center [place] [address] [facility] [address] [place] [phone] Celia Simmons MD [address] [facility] [address] [place], [place] [address] Annel Miranda MD [address] [facility] [address] [place], [place] [phone] Personal history of venous thrombosis and embolism [...] this encounter Medications at Time of Discharge aspirin (ASA) 81 MG chewable tablet Take [...] ? Study Date: ??12/10/2023 10:57am Pat. NO: ??[id number] ?Referring ??MD: JULY [facility] Site: ? Jig Boring Machine Set Up Operator: Moni Glass RDMS : ??1985 ?Age: ?? [...] with her primary OB care team in [place]. They have been notified. She does have [...] maternal age). We reaffirmed the recommendations from [facility] for any future based on her history and her prior consultation and lab results. Return to primary provider for continued OB and manager statistical programming care. Thank you for allowing us to [...] medical record, and communicating with other health child care group leader and/or care coordination. Procedure Note Annel Miranda MD - 12/10/2023 1st Trim ----- Pat. Name: TRUDI CHANDLER Study Date: 12/10/2023 10:57am Pat. NO: [id number] Referring MD: MORELIA WHITE Site: Jig Boring Machine Set Up Operator: Moni Glass RDMS : 1985 Age: 38 ----- INDICATION ----- Abnormal NIPT - increased risk of trisomy 21 DEMISE Maternal history of DVT on prophylactic enoxaparin - M consult METHOD ----- Transabdominal ultrasound examination. View: [...] referring your patient for M consult & ultrasoundassessment. Since her consult was scheduled, she had NIPT drawn which indicated anincreased risk of trisomy 21. A demise is identified todaymeasuring 12 weeks and 1 day. We discussed that these two are likely related. She would like tohave a D/C procedure with her primary OB care team in [place]. Theyhave been notified. She does have to [...] maternal age). We reaffirmed the recommendations from [facility] for any future basedon her history and her prior consultation and lab results. Return to primary provider for continued OB and manager statistical programming care. Thank you for allowing us to [...] electronic medical record, andcommunicating with other health child care group leader and/or carecoordination. IMPRESSION ----- 1. Leary at 12w 5d gestational age, 12w1d by CRL. 2. No cardiac activity is present - demise 3. Posterior placenta us Celia Simmons MD [facility] ORDERABLES Edited Res ult - Final documented in this encounter Visit Diagnoses Diagnosis Personal history of venous thrombosis and embolism documented in this encounter Care Teams Lead Machinist Relationship Specialty Start Date End Date No Ref-Primary, Physician PCP - General 05/15/21 documented as of this encounter
--- OUTSIDE RECORDS SUMMARY | 2024-02-08 10:27 | XMS_ITS | Encounter Summary ---
Author Organization [place] Address [address] [place] [address] Care Team Providers Care Car Mechanic Helper Name Role Phone No Ref-Primary, Physician Primary Care Provider Reason for Visit * Reason Comments Genetic Counseling Ultrasound NT Consult Hx DVT, AMA, Hx CS x 1 Encounter Details Date Type Department Care Team (Late st Contact Info) Description 12/02/2023 PRE VISIT [facility] Maternal Medicine Center [place] [address] [facility] [address] [place] [phone] Nikkie Singleton, RN Genetic Counseling; Ultrasound (NT); [...] on filedocumented in this encounter Care Teams Car Mechanic Helper Relationship Specialty Start Date End Date No Ref-Primary, Physician PCP - General 05/15/21 documented as of this encounter
--- OUTSIDE RECORDS SUMMARY | 2024-02-08 10:27 | XMS_ITS | Encounter Summary ---
Author Organization [place] Address [address] [place] [address] Care Team Providers Care Graduate Civil Engineer Name Role Phone No Ref-Primary, Physician Primary Care Provider Reason for Referral * Consultation (Routine: Next available opening) - Pending Review Specialty Diagnoses / Procedures Referred By Michael t Referred To Contact Diagnoses related condition, antepartum Faizanjuly [place] [id number] [place] [address] Phone: tel: fax: [facility] [place] [address] [place] [address] Phone: tel: fax: Referral ID Status Reason Start Date Expiration Date V isits Requested Visits Authorized [id number] Pending Review 11/06/2023 11/05/2024 1 1 Question Answer Preferred Location: [facility] 06/18/2024 Ultrasound NONE US PROC NONE MFM Issue Advanced Maternal Age *MUST request Genetic Counseling - AMA Personal history of other venous thrombosis and embolism MFM Consultation (unrelated to Ultrasound findings): Yes Inflammatory Bowel Disease Clinic: Joint MFM and GI Consultation: No Chronic Kidney Disease: Joint MFM and Nephrology Consultation No Cardio-Obstetrics: Joint MFM and Cardiology Consultation No Genetic Counseling Consultation: No fax NH + C - July Wayne - [phone] Comments There is no height or weight [...] (Latest Contact Info) Description 11/06/2023 Transcribe Orders [facility] [place] [address] [place] [address] WayneJuly [facility] [address] [place], [place] [id number] related condition, antepartum (Primary Dx) Social History Tobacco Use Types Packs/Day Years Used Date Smoking Tobacco: Never Assessed Adolescent Education Answer Date Record ed Getting School Help Needed Not on file 12/27 Comments No Sex and Gender Information Value Date Recorded [...] Primary documented in this encounter Care Teams Graduate Civil Engineer Relationship Specialty Start Date End Date No Ref-Primary, Physician PCP - General 05/15/21 documented as of this encounter
--- OUTSIDE RECORDS SUMMARY | 2024-02-08 10:27 | XMS_ITS | Encounter Summary ---
Author Organization [place] Address [address] [place] [address] Care Team Providers Care Us Marketing Director Name Role Phone No Ref-Primary, Physician Primary [...] on filedocumented in this encounter Care Teams Us Marketing Director Relationship Specialty Start Date End Date No Ref-Primary, Physician PCP - General 05/15/21 documented as of this encounter
--- OUTSIDE RECORDS SUMMARY | 2024-02-08 10:27 | XMS_ITS | Encounter Summary ---
Author Organization [place] Address [address] [place] [address]. [place] [address] Care Team Providers Care Laboratory Equipment Cleaner Name Role Phone No Ref-Primary, Physician Primary Care Provider Reason for Visit * Reason Comments Genetic Counseling * Consultation (Routine: Next available opening) - Pending Review Specialty Diagnoses / Procedures Referred By Contac t Referred To Contact Diagnoses Personal history of venous thrombosis and embolism Celia Simmons MD [address] [place] [address] [address] [place] [address] Phone: tel: fax: Referral ID Status Reason Start Date Expiration Date V isits Requested Visits Authorized [id number] Pending Review 11/09/2023 11/08/2024 1 1 Encounter Details Date Type Department Care Team (Late st Contact Info) Description 12/10/2023 10:15 AM CDT Office Visit [facility] [place] [address] [place] [address] Celia Simmons MD [address] [facility] [address] [place] [address] Annel Miranda MD [address] [address] [place] [address] Salome Mcguire GC [address] [place], [place] [address] Multigravida of advanced maternal age in first [...] this encounter Progress Notes * Salome Mcguire, GC - 12/10/2023 10:15 AM CDT [facility] Genetic Counseling Consult Patient: Rosalinda Souza Date of : 1985 Date of Service: 12/10/23 Rosalinda was seen at the [facility] for genetic counseling consultation as part of her appointment for ultrasound and MFM consult. The patient was unaccompanied to today's visit. IMPRESSION/ PLAN 1. Rosalinda underwent [id number] NIPT earlier in this , which screened [...] is scanned under the Media tab in ipsy. It is important to note that the [...] odontohypophosphatasia. This should be shared with their beater and pulper feeder. RISK ASSESSMENT FOR CHROMOSOME CONDITIONS Rosalinda underwent [id number] NIPT with her primary OB which returned [...] and specificity of the NIPT test for [employer], the calculated positive predictive value (the likelihood [...] options: Nuchal translucency (NT) ultrasound Ultrasound between [id number] that includes nuchal translucency measurement and nasal [...] was a pleasure to be involved with Roslainda???s [facility]. [id number] time of the meeting was 20 minutes. Salome Mcguire MS, [facility] Licensed Genetic Counselor [facility] [email or web address] documented in this encounter Plan of Treatment Not on file documented as of this encounter Visit Diagnoses Diagnosis Multigravida of advanced maternal age in first trimester- Primary Personal history of venous thrombosis and embolism Abnormal genetic test during documented in this encounter Care Teams Laboratory Equipment Cleaner Relationship Specialty Start Date End Date No Ref-Primary, Physician PCP - General 05/15/21 documented as of this encounter
--- OUTSIDE RECORDS SUMMARY | 2024-02-08 10:27 | XMS_ITS | Encounter Summary ---
Author Organization [place] Address [address] [place] [address]. [place] [address] Care Team Providers Care Recovery Collector Name Role Phone No Ref-Primary, Physician Primary Care Provider Reason for Visit * Reason Comments Ultrasound NT: history of DVT o n Lovenox, history of C/S, AMA, NIPT positive for T21 * Consultation (Routine: Next available opening) - Pending Review Specialty Diagnoses / Procedures Referred By Michael t Referred To Contact Diagnoses Personal history of venous thrombosis and embolism Celia Simmons MD [address] [facility] [address] [place] [address] Phone: tel: fax: Referral ID Status Reason Start Date Expiration Date V isits Requested Visits Authorized [id number] Pending Review 11/09/2023 11/08/2024 1 1 Encounter Details Date Type Department Care Team (Late st Contact Info) Description 12/10/2023 11:45 AM CDT Office Visit [facility] [place] [address] [place] [phone] Celia Simmons MD [address] [facility] [address] [place] [address] Annel Miranda MD [address] [address] [place], [place] [address] demise before 20 weeks with retention of [...] today. Thank-you for referring your patient for [facility] consult & ultrasound assessment. Since her consult was scheduled, she had NIPT drawn which indicated an increased risk of trisomy 21. A demise is identified today measuring 12 weeks and 1 day. We discussed that these twoare likely related. She would like to have a D/C procedure with her primary OB care team in [place]. They have been notified. She does have [...] maternal age). We reaffirmed the recommendations from [facility] for any future based on her history and her prior consultation and lab results. Return to primary provider for continued OB and nitrocellulose operator care. Thank you for allowing us to [...] medical record, and communicating with other health veterinarian laboratory animal care and/or care coordination. Annel Miranda MD Maternal Medicine documented in this encounter Nursing Notes * Yamile Paulson RN - 12/10/2023 11:45 AM CDT Patient presents to [facility] for GC/NT/MFM Radiologic Consult at 12w5d due to history of DVT on Lovenox,history of C/S, AMA, NIPT positive for T21. Denies LOF, vaginal bleeding, cramping/contractions. SBAR given to [facility] MD, see their note in Epic. Patient found to have a demise on ultrasound today. [facility] notified of ultrasound finding and [...] trimester documented in this encounter Care Teams Recovery Collector Relationship Specialty Start Date End Date No Ref-Primary, Physician PCP - General 05/15/21 documented as of this encounter
--- OUTSIDE RECORDS SUMMARY | 2024-02-08 10:27 | XMS_ITS | Encounter Summary ---
Author Organization [place] Address [address] [place] [address]. [place] [address] Care Team Providers Care Gas Worker Name Role Phone No Ref-Primary, Physician Primary Care Provider Encounter Details Date Type Department Care Team (Late st Contact Info) Description 11/06/2023 Medical Correspondence [facility] [address] [place] [address] Scan, Non-Provider Social History Tobacco Use [...] on filedocumented in this encounter Care Teams Gas Worker Relationship Specialty Start Date End Date No Ref-Primary, Physician PCP - General 05/15/21 documented as of this encounter
--- OUTSIDE RECORDS SUMMARY | 2024-02-08 10:27 | XMS_ITS | Encounter Summary ---
Author Organization [place] Address [address] [place] [address] Care Team Providers Care Biomedical Repair Technician Name Role Phone No Ref-Primary, Physician Primary Care Provider Reason for Referral * Consultation (Routine: Next available opening) - Pending Review Specialty Diagnoses / Procedures Referred By Contac t Referred To Contact Diagnoses Personal history of venous thrombosis and embolism Celia Simmons MD [address] [place] [address] Phone: tel: fax: Referral ID Status Reason Start Date Expiration Date V isits Requested Visits Authorized [id number] Pending Review 11/09/2023 11/08/2024 1 1 Question Answer Office Visit Type: MFM Consult Comments Radiologic * Consultation (Routine: Next available opening) - Pending Review Specialty Diagnoses / Procedures Referred By Contac t Referred To Contact Diagnoses Personal history of venous thrombosis and embolism Celia Simmons MD [address] [address] Phone: tel: fax: Referral ID Status Reason Start Date Expiration Date V isits Requested Visits Authorized [id number] Pending Review 11/09/2023 11/08/2024 1 1 Encounter Details Date Type Department Care Team (Late st Contact Info) Description 11/09/2023 Orders Only [facility] [address] [place] [address] Taya Garcia, TIARA Personal history of venous [...] Type Priority Associated Diagnoses Orde r Schedule [facility] Genetic Counseling Referral Routine: Next available opening Personal history of venous thrombosis and embolism Expected: 11/09/2023 (Approximate), Expires: 11/08/2024 [facility] Office Visit - [facility] Consult Referral Routine: Next available opening Personal history of venous thrombosis and embolism Expected: 11/09/2023 (Approximate), Expires: 11/08/2024 documented as of this encounter Visit Diagnoses Diagnosis Personal history of venous thrombosis and embolism- Primary documented in this encounter Care Teams Biomedical Repair Technician Relationship Specialty Start Date End Date No Ref-Primary, Physician PCP - General 05/15/21 documented as of this encounter
== END 2024-02-08 10:29 | disposition home or self-care (01) ==
LOC: ED 10:25
PROVIDERS: Emergency Provider Emergency Medicine Emergency Medical Services; PCP Family Medicine
DX: M79.604 Pain in right leg (principal)
CPT/HCPCS: 93971; 99284

== ENCOUNTER 2024-04-20 10:18 | Outpatient (CLI) | payer BC, SELFPAY | END 2024-04-20 10:19 | disposition home or self-care (01) | PROVIDERS: PCP Family Medicine; Visit Provider Family Medicine | DX: R10.12 Left upper quadrant pain (principal); G89.29 Other chronic pain | CPT/HCPCS: 80053; 83516; 83690 ==

== ENCOUNTER 2024-05-24 12:03 | Outpatient (CLI) | payer BC, SELFPAY ==
--- NOTE | 2024-05-24 12:15 | CRLHL7_ITS ---
For Patients: As a result of the Century Cures Act, medical imaging exams and procedure reports are released immediately into your electronic medical record. You may view this report before your referring provider. If you have questions, please contact your health care provider. INDICATION: First trimester scan, establish dates. COMPARISON: None. TECHNIQUE: Real time stockton scale imaging of the pelvis was performed. FINDINGS: Sonographic imaging demonstrates a single living intrauterine gestation. The embryo demonstrates a regular cardiac rate measuring 173 beats per minute. The embryo`s crown rump length measurement of 3.2 cm corresponds to a gestational age of 10 weeks 1 day with a sonographic due date of 12/19/2024. There is a normal appearing yolk sac. There are no gross abnormalities noted within the embryo at this early state of development. The placenta has not yet developed. The gestational sac has a normal appearance and there is no evidence of a perigestational hemorrhage. The amount of fluid within the sac appears appropriate for gestational age. The cervix is closed. The myometrium appears normal. The ovaries are of normal size. There are no suspicious fluid collections noted in the cul-de-sac. IMPRESSION: Normal first trimester OB ultrasound exam. Gestational age calculated at 10 weeks 1 day with a sonographic due date of 12/19/2024. Dictated by Amanuel Hearn MD @ 05/24/2024 7:48:17 PM (Electronically Signed)
== END 2024-05-24 12:04 | disposition home or self-care (01) ==
LOC: US 12:03
PROVIDERS: PCP Family Medicine; Visit Provider Physician Assistant
DX: Z34.91 Encounter for supervision of normal pregnancy, unspecified, first trimester (principal); Z3A.10 10 weeks gestation of pregnancy
CPT/HCPCS: 76817; 83021; 86703; 86706; 86803; 86850; 86900; 86901; 87086; 87340; 87491; 87591

== ENCOUNTER 2024-05-24 12:55 | Outpatient (CLI) | payer BC, SELFPAY ==
[2024-05-24 21:31] LABS: Chlamydia DNA Amplified* NOT DETECTED (No Detected); GC DNA Amplified* NOT DETECTED (No Detected)
== END 2024-05-24 12:56 | disposition home or self-care (01) ==
PROVIDERS: PCP Family Medicine; Visit Provider Physician Assistant
DX: Z34.91 Encounter for supervision of normal pregnancy, unspecified, first trimester (principal); Z3A.09 9 weeks gestation of pregnancy
CPT/HCPCS: 83020; 83021; 85660; 86592; 86703; 86704; 86706; 86762; 86787; 86803; 86850; 86900; 86901; 87086; 87340; 87491; 87591

== ENCOUNTER 2024-07-27 07:35 | Outpatient (CLI) | payer BC, SELFPAY | END 2024-07-27 07:36 | disposition home or self-care (01) | LOC: US 07:36 | PROVIDERS: PCP Family Medicine; Visit Provider Obstetrics & Gynecology | DX: O09.522 Supervision of elderly multigravida, second trimester (principal); Z86.718 Personal history of other venous thrombosis and embolism; Z3A.18 18 weeks gestation of pregnancy | CPT/HCPCS: 76811 ==

== ENCOUNTER 2024-08-24 14:23 | Outpatient (CLI) | payer BC, SELFPAY | END 2024-08-24 14:24 | disposition home or self-care (01) | LOC: US 14:24 | PROVIDERS: PCP Family Medicine; Visit Provider Obstetrics & Gynecology | DX: O09.522 Supervision of elderly multigravida, second trimester (principal); Z3A.22 22 weeks gestation of pregnancy | CPT/HCPCS: 76816 ==

== ENCOUNTER 2024-08-27 18:43 | Emergency (ER) | payer BC, SELFPAY ==
[2024-08-27] VITALS (27 sets, daily range): BP systolic 104–127; BP diastolic 59–89; PULSE 81–101; RESP 7–22; TEMP 36.7; O2SAT 92–100; BMI 29.8
--- OUTSIDE RECORDS SUMMARY | 2024-08-27 18:45 | XMS_ITS | Encounter Summary ---
Author Organization [facility] Address [address] [place] [address] Care Team Providers Care Tail End Rider Name Role Phone Alec Rios MD Primary Care Provider + [phone] Encounter Details Date Type Department Care Team (Late st Contact Info) Description 06/08/2013 Emergency Room External to [facility], Provider EAR PAIN Social History Tobacco Use Types Packs/Day Years Used Date Smoking Tobacco: Some Days Smokeless Tobacco: Never Alcohol Use Standard Drinks/Week Comments Yes 8.3 (1 standard drink = 0.6 oz p ure alcohol) Comments Unknown Sex and Gender Information Value Date Recorded Sex Assigned at Not on file Legal Sex Female 6:41 AM CDT Gender Identity Not on file Sexual Orientation Not on file documented as of this encounter Progress Notes * [facility], Provider - 06/08/2013 12:00 AM CST documented in this encounter Plan of Treatment Not on file documented as of this encounter Visit Diagnoses Not on filedocumented in this encounter Additional Health Concerns Infection Onset Date Last Indicated Resolved Time R/O COVID19 09/29/2019 09/29/2019 09/29/2019 8:17 PM CDT R/O COVID19 04/20/2020 04/20/2020 04/21/2020 6:30 AM RES HABILITATION ASSISTANT documented as of this encounter Care Teams Tail End Rider Relationship Specialty Start Date End Date Alec Rios MD [address] [place] [address] PCP - General 04/06/22 documented as of this encounter
--- OUTSIDE RECORDS SUMMARY | 2024-08-27 18:45 | XMS_ITS | Clinical Summary ---
Author Organization [place] Address [address] [place] [address] Care Team Providers Care Mining Consultant Name Role Phone No Ref-Primary, Physician Primary [...] 1985 ANNUAL REVIEW OF HM ORDERS 1985 DIABETES SCREENING 1985 YEARLY PREVENTIVE VISIT 1988 HIV SCREENING 2000 HEPATITIS C SCREENING 09/01/2003 HEPATITIS B IMMUNIZATION (1 of 3 - 19+ 3-dose series) 2004 PAP 2006 HPV IMMUNIZATION (2 - 3-dose series) 04/30/2007 04/02/2007 MATERNAL SCREENING DISCUSSION 11/21/2023 OBGCT (OB) 02/27/2024 TDAP () IMMUNIZATION 03/19/2024 PHQ-2 (once per calendar year) 2024 GROUP B STREP SCREENING 05/21/2024 DTAP/TDAP/TD IMMUNIZATION (3 - Td or Tdap) 08/27/2031 08/26/2021, 07/05/2009 ZOSTER IMMUNIZATION (1 of 2) 09/01/2035 MENINGITIS IMMUNIZATION Aged Out 10/10/2003 No l onger eligible based on patient's age to complete this topic INFLUENZA VACCINE Completed 01/17/2024, , 02/14/2022, Additional history exists COVID-19 Vaccine Completed 01/19/2024, 02/2022, 09/29/2021, Additional history exists Pneumococcal Vaccine: Pediatrics (0 to 5 Years) and At-Risk Patients (6 to 49 Years) Aged Out No longer eligible based on patient's age to complete this topic RSV VACCINE (No Doses Required) Completed Insurance [facility] [place] Care Teams Mining Consultant Relationship Specialty Start Date End Date No Ref-Primary, Physician PCP - General 05/15/21
--- OUTSIDE RECORDS SUMMARY | 2024-08-27 18:45 | XMS_ITS | Clinical Summary ---
Author Organization [facility] Address [address], [place] [address] Care Team Providers Care Moisture Conditioner Operator Name Role Phone Alec Rios MD Primary Care Provider + [phone] Source Comments You are receiving this document as you are listed as the primary care provider,follow-up provider, or the patient has been referred to you for consultation.This is in compliance with the Medicare andMedicaid EHR Incentive Program,which states Providers who transition their patient to another setting of careor provider of care or refers their patient to another provider of care shouldprovide summary care record for each transition of care or referral. [facility] Allerg[facility] Active Allergy Reactions Criticality Noted Date Comments [facility] 08/10/2019 Medications * This document contains information received from the source organization and may not represent a complete record from that organization. valACYclovir (VALTREX) 1 g tablet TAKE 2 TABLETS BY MOUTH STAT, THEN 2 TABLETS 12 HOURS LATER 12 Tablet 1 08/27/2021 Active Active Problems Problem Noted Date Diagnosed Date DVT, lower extremity, distal, acute, right 06/26 Psychophysiologic insomnia 11/30/2019 Adjustment disorder with anxiety 11/30/2019 Right lower quadrant pain 08/10/2019 Surveillance for control, oral contracepti ves 01/30/2012 Immunizations Immunization Administration Dates Next Due 4vHPV (Gardasil) 04/02/2007 Flu Vac (3+ yrs) 01/25/2008 [id number] 03/26/2009 HepB Ped/Adol (0-18 yrs) 11/12/2000,10/30/1997,0 09/25/1997 Influenza IIV4 (Quadrivalent) 0.5mL (74098) 06/2019 MMR 09/25/1997 MPSV4 (Menomune) 10/10/2003 Moderna Monovalent 12+ 06/21/2020,05/25/2020 Td 09/25/1997 Tdap 07/05/2009 Family History Medical History Relation Name Comments Cancer, Other Father Good Health Father High Cholesterol Father Hypertension Father Good Health Mother High Cholesterol Mother Alcohol/Drug Abuse Maternal Grandfather Cancer Paternal Grandfather Alcohol/Drug Abuse Paternal Grandmother Cancer, Melanoma Paternal Grandmother Stroke Paternal Grandmother Thyroid Disorder Sister 2 Relation Name Status Comments Father Alive Mother Alive Brother Alive Maternal Grandfather Maternal Grandmother Paternal Grandfather Paternal Grandmother Sister 1 Alive Sister 2 Alive Social History Tobacco Use Types Packs/Day Years Used Date Smoking Tobacco: Former Smokeless Tobacco: Never Comments:quit smoking 2013; smokes weed once a year Alcohol Use Standard Drinks/Week Comments Yes 4 (1 standard drink = 0.6 oz pur e alcohol) PHQ-2 Answer Date Recorded PHQ-2 Score 2 11/30/2019 Comments No Sex and Gender Information Value Date Recorded Sex Assigned at Not on file Legal Sex Female 6:41 AM CDT Gender Identity Not on file Sexual Orientation Not on file Last Filed Vital Signs Vital Sign Reading Time Taken Comments Blood Pressure 116/77 08/16/2020 9:21 AM CDT Pulse 67 08/16/2020 9:21 AM CDT Temperature 37.8 C (100 F) 06/22/2020 12:24 PM CDT Respiratory Rate 16 08/16/2020 9:21 AM CDT Oxygen Saturation 100% 08/16/2020 9:21 AM CDT Inhaled Oxygen Concentration - - Weight 80.7 kg (178 lb) 08/16/2020 9:21 AM CDT Height 175.3 cm (5' 9) 08/16/2020 9:21 AM CDT Body Mass Index 26.29 08/16/2020 9:21 AM CDT Plan of Treatment Health Maintenance Due Date Last Done Comments Hep C Screening (Preventive Services) 1985 HIV Screening (Preventive Services) 2001 HPV Vaccine (2 - 3-dose series) 04/30/2007 04/02/2007 Adult Preventive Visit 02/08/2022 02/09/2020, 2011 COVID-19 Vaccine ( season) 2023 06/21/2020, 05/25/2020 Influenza Vaccine (Season Ended) 2024 01/07/2020, 01/27/2018, 03/02/2017, Additional history exists Cervical Cancer Screening 02/08/20252019, 02/09/2020, 01/30/2012, Additional history exists DTaP/Tdap/Td Vaccine (4 - Tdap) 07/06/2028 07/06/2018, 07/05/2009, 09/25/1997 Zoster/Shingles Vaccine (1 of 2) 09/01/2035 HepB Vaccine Completed 11/12/2000, 10/05, 09/25/1997 MCV4 Vaccine Aged Out 10/10/2003 No longer eligi ble based on patient's age to complete this topic HepA Vaccine Aged Out No longer eligi ble based on patient's age to complete this topic Hib Vaccine Aged Out No longer eligi ble based on patient's age to complete this topic IPV (Polio) Vaccine Aged Out No longe r eligible based on patient's age to complete this topic Meningococcal B Vaccine Aged Out No l onger eligible based on patient's age to complete this topic Pneumococcal Vaccine Aged Out No long er eligible based on patient's age to complete this topic Procedures Procedure Name Priority Date/Time Associated Diagnosis Comments CYTOLOGY (PAP) Routine 02/09/2020 8:58 AM SMOKE AND FLAME SPECIALIST Cervical cancer screening from Last 3 Months or Most Recently Relevant to Health Maintenance Results * PAP Test (02/09/2020 8:58 AM SMOKE AND FLAME SPECIALIST) Case Report Pap Case: [id number] Authorizing Provider: Emiliana Hinson APRN, Collected: 02/09/2020 0858 CN Ordering Location: [facility] Received: 02/09/2020 [facility] reel slitter First Screen: Maira Narvaez R, CT (ASCP) Specimen: Pap Test, Routine, Cervix/Endocervix 02/15/2020 10:16 AM [facility] Pap Specimen Adequacy Satisfactory for evaluation, endocervical/roasles sformation zone component absent. 02/15/2020 10:16 AM [facility] Pap Interpretation Negative for intraepithelial lesion or malignancy (NILM). 02/15/2020 10:16 AM [facility] at 1016 S[employer] AND FLAME SPECIALIST Pap Disclaimer The Pap test is a screening test designed to aid in the detection of cervical cancer and its precursor lesions. It is not a diagnostic procedure and should not be used as the sole means of detecting cervical cancer. Both false-positive and false-negative results may occur. 02/15/2020 10:16 AM [facility] Gross Description The specimen is received in SurePath fixative and properly labeled. 1 Pap-stained SurePath slide is prepared. 02/15/2020 10:16 AM [facility] Embedded Images 0 10:16 AM [facility] Other Specimen Type ENTIRE ENDOCERVIX / Unknown 02/09/2020 8:58 AM SMOKE AND FLAME SPECIALIST 02/09/2020 10:15 AM S[employer] AND FLAME SPECIALIST Comment:LMP: No LMP recorded . us Emiliana Hinson RN LAB PATHOLOGY Final Result Performing Organization Address City/State/[facility] Co de Phone Number [address] [address], [facility] [phone] from Last 3 Months or Most Recently Relevant to Health Maintenance Insurance [address] [facility] [id number] [facility] [place] [address] [place] [address] BCBS OUT OF STATE Advance Directives * Full Code (Latest Code Status on File) Date Activated Date Inactivated Comments 08/11/2019 12:16 AM 08/11/2019 1:11 PM Care Teams Moisture Conditioner Operator Relationship Specialty Start Date End Date Alec Rios MD [address] [place] [address] PCP - General 04/06/22
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
--- NOTE | 2024-08-27 19:01 | CRLHL7_ITS ---
For Patients: As a result of the Century Cures Act, medical imaging exams and procedure reports are released immediately into your electronic medical record. You may view this report before your referring provider. If you have questions, please contact your health care provider. INDICATION: Inversion injury COMPARISON: None. TECHNIQUE: Three radiographic view(s) of the right ankle. FINDINGS: Acute comminuted and mxig-au-ohzpfkigtf displaced fracture of the distal fibular shaft. Acute nfkh-sr-xemfrxdzlk displaced fracture of the medial malleolus. There is posttraumatic widening of the medial clear space and widening of the distal tibiofibular syndesmosis compatible with syndesmotic injury. There is mild posttraumatic widening of the anterior tibiotalar joint. There is a type 1 accessory navicular ossicle. IMPRESSION: Acute comminuted and vcnj-oc-knsltigdou displaced fracture of the distal fibular shaft. Acute oote-dc-tdoidydgxe displaced fracture of the medial malleolus. There is posttraumatic widening of the medial clear space and widening of the distal tibiofibular syndesmosis compatible with syndesmotic injury. There is mild posttraumatic widening of the anterior tibiotalar joint. Dictated by Eric Abarca MD @ 08/27/2024 7:48:07 PM (Electronically Signed)
[2024-08-27] MEDS: HYDROmorphone 0.5 mg/0.5 ml inj IM (19:12)
[2024-08-27] MEDS: 0.9 % SODIUM CHLORIDE 500 ML 500 ML 1000 ML IV (21:56)
[2024-08-27] MEDS: HYDROmorphone 0.5 mg/0.5 ml inj IVP (22:00)
[2024-08-27] MEDS: PROPOFOL 10 MG/ML INJ 200 MG IVP (22:16)
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
== END 2024-08-27 22:53 | disposition home or self-care (01) ==
PROVIDERS: Emergency Provider Family Medicine; PCP Family Medicine
DX: S82.841A Displaced bimalleolar fracture of right lower leg, initial encounter for closed fracture (principal); W01.198A Fall on same level from slipping, tripping and stumbling with subsequent striking against other object, initial encounter; Y93.02 Activity, running; Y92.008 Other place in unspecified non-institutional (private) residence as the place of occurrence of the external cause; Z79.01 Long term (current) use of anticoagulants; Z33.1 Pregnant state, incidental; Z3A.23 23 weeks gestation of pregnancy
CPT/HCPCS: 76000; 73600; 73610; 96374; 99284; J1171; J2704; J7030

== ENCOUNTER 2024-08-29 07:27 | Emergency (ER) | payer BC, SELFPAY ==
[2024-08-29 07:31] VITALS: BP 125/79; PULSE 103; RESP 16; TEMP 36.6; O2SAT 97; BMI 29.8
--- OUTSIDE RECORDS SUMMARY | 2024-08-29 07:31 | XMS_ITS | Clinical Summary ---
Author Organization [place] Address [address] [place] [id number] Care Team Providers Care Kosher Dietary Service Supervisor Name Role Phone No Ref-Primary, Physician Primary [...] RSV VACCINE (No Doses Required) Completed Insurance [facility] [place] Care Teams Kosher Dietary Service Supervisor Relationship Specialty Start Date End Date No Ref-Primary, Physician PCP - General 05/15/21
--- OUTSIDE RECORDS SUMMARY | 2024-08-29 07:31 | XMS_ITS | Clinical Summary ---
Author Organization [facility] Address [address], [place] [address] Care Team Providers Care Internal Communications Specialist Name Role Phone Alec Rios MD Primary Care Provider + [phone] Source Comments You are receiving this document [...] for each transition of care or referral. [facility] Allergies Active Allergy Reactions Criticality Noted Date [...] (Gardasil) 04/02/2007 Flu Vac (3+ yrs) 01/25/2008 [id number] 03/26/2009 HepB Ped/Adol (0-18 yrs) 11/12/2000,10/30/1997,0 09/25/1997 Influenza IIV4 (Quadrivalent) 0.5mL (56753) 06/2019 MMR 09/25/1997 MPSV4 (Menomune) 10/10/2003 Moderna [...] Comments CYTOLOGY (PAP) Routine 02/09/2020 8:58 AM WAITER WA[facility]RESS Cervical cancer screening from Last 3 Months or Most Recently Relevant to Health Maintenance Results * PAP Test (02/09/2020 8:58 AM WAITER WAITRESS) Case Report Pap Case: [id number] Authorizing Provider: Emiliana Hinson APRN, Collected: 02/09/2020 0858 CN Ordering Location: [facility] Received: 02/09/2020 [facility] [place] philosophy specialist First Screen: Maira Narvaez R, CT (ASCP) Specimen: Pap Test, Routine, Cervix/Endocervix 02/15/2020 10:16 AM [facility] Pap Specimen Adequacy Satisfactory for evaluation, endocervical/rosales sformation zone component absent. 02/15/2020 10:16 AM [facility] Pap Interpretation Negative for intraepithelial lesion or malignancy (NILM). 02/15/2020 10:16 AM [facility] at 1016 [facility] Pap Disclaimer The Pap test is a screening test designed to aid in the detection of cervical cancer and its precursor lesions. It is not a diagnostic procedure and should not be used as the sole means of detecting cervical cancer. Both false-positive and false-negative results may occur. 02/15/2020 10:16 AM [facility] Gross Description The specimen is received in SurePath fixative and properly labeled. 1 Pap-stained SurePath slide is prepared. 02/15/2020 10:16 AM [facility] Embedded Images 0 10:16 AM [facility] Other Specimen Type ENTIRE ENDOCERVIX / Unknown 02/09/2020 8:58 AM WA[facility] 02/09/2020 10:15 AM [facility] Comment:LMP: No LMP recorded . us Emiliana Hinson RN LAB PATHOLOGY Final Result Performing Organization Address City/State/[facility] Co de Phone Number [address] [address], [facility] [phone] from Last 3 Months or Most Recently Relevant to Health Maintenance Insurance [facility] [id number] [facility] [place] [place] [address] [place] [address] BCBS OUT OF STATE Advance Directives * Full Code (Latest Code Status on File) Date Activated Date Inactivated Comments 08/11/2019 12:16 AM 08/11/2019 1:11 PM Care Teams Internal Communications Specialist Relationship Specialty Start Date End Date Alec Rios MD [address] [place] [address] PCP - General 04/06/22
--- OUTSIDE RECORDS SUMMARY | 2024-08-29 07:31 | XMS_ITS | Encounter Summary ---
[facility] Address [address] [place] [id number] Care Team Providers Care Grapple Crew Leader Name Role Phone Alec Rios MD Primary Care Provider + [phone] Encounter Details Date Type Department Care Team (Late st Contact Info) Description 06/08/2013 Emergency Room External to [facility], Provider EAR PAIN Social History Tobacco Use [...] as of this encounter Progress Notes * [facility], Provider - 06/08/2013 12:00 AM CST documented in this encounter Plan of Treatment Not on file documented as of this encounter Visit Diagnoses Not on filedocumented in this encounter Additional Health Concerns Infection Onset Date Last Indicated Resolved Time R/O COVID19 09/29/2019 09/29/2019 09/29/2019 8:17 PM CDT R/O COVID19 04/20/2020 04/20/2020 04/21/2020 6:30 AM CATERING SERVICE MANAGER documented as of this encounter Care Teams Grapple Crew Leader Relationship Specialty Start Date End Date Alec Rios MD [address] [place] [address] PCP - General 04/06/22 documented as of this encounter
--- OUTSIDE RECORDS SUMMARY | 2024-08-29 07:31 | XMS_ITS | Clinical Summary ---
Author Organization [facility] Address [address] [place] [address] Care Team Providers Care Tipple Operator Name Role Phone Unknown, Provider Primary Care Provider Unavaila ble Source Comments [facility],non-[facility] Affiliates and Associated Physician Practices is amultiple site organization consisting of ambulatory clinics and hospital sitesin [place], [place], [place] and [place]. This disclosure is being madepursuant to the Care Everywhere program and may not contain all information available regarding this patient. Last updated 17.[facility] Allergies Active Allergy Reactions Criticality Noted Date Comments Juniper Berries Vomiting 07/06/2018 Medications * Be aware that medications may not be up to date on this document. Alwaysverify current medications with the patient. norethindrone-et hinyl estradiol (ARANELLE) 0.5/1/0.5-35 MG-MCG tablet Take 1 tablet by mouth once daily 3 packet 4 05/16/2019 Active Active Problems Problem Noted Date Diagnosed Date Melasma 11/02/2018 Rosacea 11/02/2018 Immunizations Immunization Administration Dates Next Due INFLUENZA VACCINE, TRIV. (AF LURIA, FLUZONE TRIVALENT; 6MO+) (IIV3) 01/27/2018,03/02/2017 DTaP VACCINE IM (6wk-6yrs) 01/04/2019 INFLUENZA VACCINE 01/27/2018,03/02/2017 TDAP (7yrs+) 07/06/2018 Family History Medical History Relation Name Comments Cancer - Skin, Melanoma Father Cancer - Skin, Non Melanoma Mother Hyperlipidemia Mother Thyroid Disease Mother Thyroid Disease Sister Relation Name Status Comments Father Mother Sister Social History Tobacco Use Types Packs/Day Years Used Date Smoking Tobacco: Former Cigarettes Q uit: 2013 Smokeless Tobacco: Never Tobacco Cessation:Counseling Given: No Comments:1 CIG APPROX Q 4 MONTHS. 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 Not on file Not on file Last Filed Vital Signs Vital Sign Reading Time Taken Comments Blood Pressure 112/70 05/16/2019 1:14 PM [employer] Pulse 76 11/02/2018 8:08 AM CDT Temperature 36.6 C (97.8 F) 11/02/2018 8:08 AM CDT Respiratory Rate - - Oxygen Saturation - - Inhaled Oxygen Concentration - - Weight 84.8 kg (187 lb) 05/16/2019 1:14 PM [employer] Height 172.7 cm (5' 8) 05/16/2019 1:14 PM [employer] Body Mass Index 28.43 05/16/2019 1:14 PM [employer] Plan of Treatment Health Maintenance Due Date Last Done Comments HIV SCREENING 2000 HEPATITIS C SCREENING 08/27/2003 HEPATITIS B VACCINE (1 of 3 - 19+ 3-dose series) 2004 PAP with HPV 07/02/2022 07/02/2017 COVID-19 VACCINE ( season) 2023 DEPRESSION SCREENING 04/06/2024 INFLUENZA VACCINE (Season Ended) 2024 01/27/2018, 01/27/2018, 03/02/2017, Additional history exists DTAP/TDAP/TD VACCINES (3 - Td or Tdap) 01/04/2029 01/04/2019, 07/06/2018 ZOSTER VACCINE (1 of 2) 09/01/2035 HIB VACCINE Aged Out No longer eligi ble based on patient's age to complete this topic HPV VACCINE Aged Out No longer eligi ble based on patient's age to complete this topic MENINGOCOCCAL (Group B) VACCINE SHARED DECISION-MAKING Aged Out No longer eligible based on patient's age to complete this topic MENINGOCOCCAL GROUPS A/C/Y/W VACCINE Aged Out No longer eligible based on patient's age to complete this topic PNEUMOCOCCAL VACCINE Aged Out No long er eligible based on patient's age to complete this topic Procedures Procedure Name Priority Date/Time Associated Diagnosis Comments HPV PANEL Routine 07/02/2017 4:39 PM CDT from Last 3 Months or Most Recently Relevant to Health Maintenance Results * HPV PANEL (07/02/2017 4:39 PM CDT) High Risk HPV 16 NEG NEG- 07/11/19 18 2:59 PM CDT [facility] High Risk HPV 18 NEG NEG- 07/11/19 18 2:59 PM CDT [facility] High Risk HPV Other Types NEG NEG- 07/10/2017 2:59 PM CDT [facility] Interpretation Human papillomavirus High Risk - 07/10/2017 2:59 PM CDT [facility] Comment: HPV types 16, 18, 31, 33, 35, 39, 45, 51, 52, 56, 58, 59, 66, and 68 DNA were undetectable or below the pre-set threshold. [place] [address] Other (qualifier value) PART OF UTERINE CERVIX / Unknown 07/02/2017 4:39 PM CDT 07/02/2017 4:39 PM CDT Kirstie Causey PA-C LAB - MICROBIOLOGY ORDERA BLES Final Result [facility] [address] ([facility]) [address] [facility] ([place], [place] from Last 3 Months or Most Recently Relevant to Health Maintenance Insurance [employer] Commercial Managed Care - [facility] Address: [facility] [address] [place] [address] Care Teams Tipple Operator Relationship Specialty Start Date End Date Unknown, Provider PCP - General 04/20/24
--- NOTE | 2024-08-29 07:56 | ED.GENADULT ---
HPI - General Adult General Chief complaint: Extremity Pain/Injury, Lower Stated complaint: Broken Right ankle rechecked- circulation Time Seen by Provider: 08/29/24 07:45 History of Present Illness HPI narrative: 30-year-old female sustained a bimalleolar fracture on the right she has a Terence Miranda splint placed she felt was a little tight and had some tingling this in her foot. She presents to ED for reassessment. The splint was removed. She felt better. She has had no shortness of breath, no chest pain. Her meds are reviewed. She has no swelling of the leg. She has good distal CMS in her foot. Related Data Home Medications ?Medication ?Instructions ?Recorded ?Confirmed BSN-fead-TI-omega 3-fat com #1 27 cap PO 11/05/23 08/02/24 mg-1 mg-300 mg capsule calcium carb and lactate 200 tab PO 04/22/24 08/02/24 mg-vitamin D3 6.25 mcg (250 unit) tablet magnesium 200 mg tablet 200 mg PO QDAY 06/21/24 08/02/24 Previous Rx's ?Medication ?Instructions ?Recorded enoxaparin 40 mg/0.4 mL 40 mg (0.4 mL) subcut QDAY #20 mL 04/22/24 subcutaneous syringe oxycodone-acetaminophen 5 mg-325 1 tab PO Q8H PRN pain #14 tabs 08/29/24 mg tablet (Percocet) Allergies Allergy/AdvReac Type Severity Reaction Status Date / Time Juniper Berries Allergy Severe Rash Uncoded 08/02/24 08:23 Review of Systems Status of ROS: Reports: 6 or more systems reviewed and unremarkable except as noted in History and below [facility] Medical History Left breast mass ?N63.20 - Unspecified lump in the left breast, unspecified quadrant (ICD-10) Biliary dyskinesia ?K82.8 - Other specified diseases of gallbladder (ICD-10) Abnormal biliary HIDA scan ?R94.8 - Abnormal results of function studies of other organs and systems (ICD-10) Diarrhea ?R19.7 - Diarrhea, unspecified (ICD-10) Anxiety ?F41.9 - Anxiety disorder, unspecified (ICD-10) History of marijuana use ?Z87.898 - Personal history of other specified conditions (ICD-10) Deep vein thrombosis (DVT) ?I82.409 - Acute embolism and thrombosis of unspecified deep veins of unspecified lower extremity (ICD-10) Surgical History History of cholecystectomy ?Z90.49 - Acquired absence of other specified parts of digestive tract (ICD-10) History of esophagogastroduodenoscopy (EGD) ?Z98.890 - Other specified postprocedural states (ICD-10) Status post delivery ?Z98.891 - History of uterine scar from previous surgery (ICD-10) H/O wisdom tooth extraction (~2001) ?K08.409 - Partial loss of teeth, unspecified cause, unspecified class (ICD-10) Status post repair of anterior cruciate ligament (~05/2001) ?Z98.890 - Other specified postprocedural states (ICD-10) Status post breast reduction (~01/2004) ?Z98.890 - Other specified postprocedural states (ICD-10) History of appendectomy (~08/2019) ?Z90.49 - Acquired absence of other specified parts of digestive tract (ICD-10) Family History Uncle Pancreatic cancer Paternal Grandfather Celiac disease Pancreatitis Maternal Grandmother Cirrhosis Other Stroke Social History Narrative: 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 Marital status: . Mormon/cultural needs: no. Chemical or radiation exposure: no. Pre- tobacco use: no. Pre- alcohol use: 4-6 per week. Current tobacco use: no. Current alcohol use: no. Recreational drug use: no. Dietary restrictions: no. Blood transfusion acceptable in an emergency: yes. PSYCHOSOCIAL HISTORY: History of depression or currently depressed: No. Current for past physical, emotional, or sexual mistreatment: no. Problems that will make it hard to make it to appointments: no. What is your current living situation?: I presently have a place to live Problems where you live: no known problems In the past 12 months, utilities in danger of being shut off: no In past 12 months, lack of transportation kept you from medical appts, meetings, work, or getting things needed for daily living: no In the past 12 mos, have been you worried that your food would run out before you had money to buy more?: never true In the past 12 mos, the food you bought just didn't last and you didn't have money to buy more?: never true Smoking Status: Former smoker Do you use any of these nicotine containing products: None Second hand tobacco smoke exposure: No How often do you have a drink containing alcohol: 2-3 times a week How often do you have six or more drinks on one occasion: Never AUDIT-C Alcohol total score: 3 Non-prescribed substance use: denies use How often does anyone, including family, friends and others, physically hurt you: never How often does anyone, including family, friends and others, insult or talk down to you: never How often does anyone, including family, friends and others, threaten you with harm: never How often does anyone, including family, friends and others, scream or curse at you: never service: No Exam Narrative: Exam Narrative: Objective vital signs look within normal limits Her right lower extremity the splint was removed the Webril wrapping was left intact, the patient has no circulatory problem in her foot she has got good cap refill normal movement of her foot no evidence of compartment syndrome. She can not move her foot and wiggle her toes. She has no upper leg swelling or calf tenderness or swelling. Const: Vital Signs, click to edit/add: Vital Signs - 24 hr 08/29/24 07:31 Temperature 97.8 F Pulse Rate [Left P ulse Oximeter] 103 H Respiratory Rate 16 Blood Pressure [Ri ght Upper Arm] 125/79 Pulse Oximetry 97 Oxygen Delivery Me thod Room Air Course Vital Signs Vital signs: Initial Vital Signs Temperature 97.8 F 08/29/24 07:31 Temperature Source Temporal Artery Scan 08/29/24 07:31 Pulse Rate 103 H 08/29/24 07:31 Respiratory Rate 16 08/29/24 07:31 Blood Pressure 125/79 08/29/24 07:31 Blood Pressure Mean 94 08/29/24 07:31 Blood Pressure Position Sitting 08/29/24 07:31 Pulse Oximetry 97 08/29/24 07:31 Oxygen Delivery Method Room Air 08/29/24 07:31 Vital Signs Temperature 97.8 F 08/29/24 07:31 Pulse Rate 103 H 08/29/24 07:31 Respiratory Rate 16 08/29/24 07:31 Blood Pressure 125/79 08/29/24 07:31 Pulse Oximetry 97 08/29/24 07:31 Oxygen Delivery Method Room Air 08/29/24 07:31 Temperature 97.8 F 08/29/24 07:31 Pulse Rate 103 H 08/29/24 07:31 Respiratory Rate 16 08/29/24 07:31 Blood Pressure 125/79 08/29/24 07:31 Pulse Oximetry 97 08/29/24 07:31 Oxygen Delivery Method Room Air 08/29/24 07:31 Medical Decision Making MDM Narrative Medical decision making narrative: 30-year-old female with currently on enoxaparin and with a bimalleolar fracture. The patient will have the leg did re-splint with a Terence Miranda splint I think we can make it a little more comfortable for her. Continue non ambulatory, she will need surgery on her foot. This is to be scheduled with Orthopedics and she has got a plan to see them. Return if problems or concerns or any splint concerns. Addendum 8:07 a.m. the patient had a short-leg Terence Miranda splint applied by myself she tolerated this well felt markedly better after removal of the initial splint which I think is a little tight. This was only due to the swelling and not due to any miss placement of the splint was an excellent splint. The patient felt better stable to will her toes that difficulty no evidence of compartment syndrome. At this point she started enoxaparin because she had a history of remote DVT associated a leg injury. She only had 1 they did not find any blood dyscrasia or discs or clotting problems. She started enoxaparin last couple of days just for DVT prevention and . I think that would is excellent timing and she will continue that. She will follow-up with ortho as scheduled. Continue nonweightbearing. I will refill some of her pain medicine. Discharge Plan Discharge Clinical Impression: Bimalleolar fracture of right ankle Patient Disposition: Home w/ Parent or Adult Condition: Improved Additional Instructions: Continue medicines at home, continue nonweightbearing, follow up with Orthopedics as scheduled, return to ED if problems or concerns. Activity Level: Light activity Discharge Diet: Regular Prescriptions: New oxycodone-acetaminophen [Percocet] 5-325 mg tablet 1 tab PO Q8H PRN (Reason: pain) Qty: 14 0RF No Action CLM-qlno-GP-omega 3-fat com #1 27-1-300 mg capsule PO calcium carb,lactat-vitamin D3 200 mg-6.25 mcg (250 unit) tablet PO enoxaparin 40 mg/0.4 mL syringe 40 mg subcut QDAY Qty: 20 4RF magnesium 200 mg tablet 200 mg PO QDAY Follow Up/Referrals: Moo Christensen MD [Primary Care Provider, Family Practice] Stand Alone Forms: [employer] Info Instructions
== END 2024-08-29 08:20 | disposition home or self-care (01) ==
PROVIDERS: Emergency Provider Family Medicine; PCP Family Medicine
DX: S82.841A Displaced bimalleolar fracture of right lower leg, initial encounter for closed fracture (principal)
CPT/HCPCS: 99283; 99284

== ENCOUNTER 2024-09-05 12:09 | Outpatient (CLI) | payer BC, SELFPAY | END 2024-09-05 12:10 | disposition home or self-care (01) | LOC: NFLDREF 12:10 | PROVIDERS: PCP Family Medicine; Visit Provider Registered Nurse | DX: Z01.818 Encounter for other preprocedural examination (principal) | CPT/HCPCS: 80048 ==

== ENCOUNTER 2024-09-07 08:14 | Day surgery (SDC) | payer BC, SELFPAY ==
[2024-09-07] VITALS (14 sets, daily range): BP systolic 96–117; BP diastolic 62–74; PULSE 88–100; RESP 16–20; TEMP 36.2–37.1; O2SAT 96–99; BMI 30.5
[2024-09-07] MEDS: LACTATED RINGERS 1000 ML 1,000 ML 100 ML IV ×2 (08:30→11:30)
[2024-09-07] MEDS: SODIUM CHLORIDE 0.9 % (FLUSH) 10 ML SYRINGE IVF (08:44)
--- NOTE | 2024-09-07 08:55 | W.PM.H&PU ---
History & Physical Update History & Physical Update H&P Reviewed and patient assessed: No changes noted
--- NOTE | 2024-09-07 09:08 | SUR.PREOP ---
Doppler T 134 @ 9512
[2024-09-07] MEDS: CEFAZOLIN 1 GM inj IVP (10:35)
--- NOTE | 2024-09-07 10:41 | P.ANES_ITS ---
Anesthesia Charges Start Date/Time Anesthesia Start Date: 09/07/24 Anesthesia Start Time: 10:17 Stop Date/Time Anesthesia Stop Date: 09/07/24 Anesthesia Stop Time: 12:37 Coding CPT Codes CPT Codes: ANESTH LOWER LEG BONE SURG - 93025 ([id number]) P2 - PATIENT W/MILD SYST DISEASE, QK - PATIENT SCHEDULING COORDINATOR 2-4 CNCRNT ANES PROC, QX - FIELD CONSULTANT SVC W/ MD MED DIRECTION
--- NOTE | 2024-09-07 10:41 | W.ANESCHARGE ---
Anesthesia Charges Start Date/Time Anesthesia Start Date: 09/07/24 Anesthesia Start Time: 10:17 Stop Date/Time Anesthesia Stop Date: 09/07/24 Anesthesia Stop Time: 12:37 Coding CPT Codes CPT Codes: ANESTH LOWER LEG BONE SURG - 95496 ([id number]) P2 - PATIENT W/MILD SYST DISEASE, QK - PREP MANAGER 2-4 CNCRNT ANES PROC, QX - STATION MECHANIC APPRENTICE SVC W/ MD MED DIRECTION
--- NOTE | 2024-09-07 12:11 | P.ORPRC_ITS ---
Procedure Note Date of procedure: 09/07/24 Procedure: PREOPERATIVE DIAGNOSES: 1. Right ankle bimalleolar fracture, closed, acute 2. Right ankle syndesmosis disruption POSTOPERATIVE DIAGNOSES: 1. Right ankle bimalleolar fracture, closed, acute 2. Right ankle syndesmosis disruption NAME OF OPERATION: 1. Right ankle bimalleolar open reduction with internal fixation 2. Right ankle syndesmosis fixation/stabilization 3. Intraoperative fluoroscopy. C-arm fluoroscopy operated by the [facility] when neck femur has great for intraoperative fracture reduction and percutaneous K- wire insertion evaluation. 2 C-arm spot images were saved/sent to PACS. Fluoroscopy time was 51 sec.. SURGEON: Kevin Laguna MD STONE DERRICKMAN AND RIGGER: Timbo MOLINA; Of note, an assistant floor covering printer was critical for this case to aide in patient positioning, leg manipulation, tissue retraction, closure, & splinting. ANESTHESIA: Spinal plus popliteal block. EBL: 25 IMPLANTS: Arthrex 2.7 mm interfragmentary screw (x2) along with 1/3 tubular locking plate with 3.5 mm nonlocking and locking screws for lateral malleolar fixation; 2 cannulated 4.0 mm partially threaded screw for medial malleolar fixation. Single Arthrex knotless tight rope device for syndesmosis fixation TOURNIQUET: 80 minutes at 300 torr INDICATIONS: The patient is a pleasant 39-year-old female who sustained a right ankle injury in the recent past with difficulty bearing weight. Workup included xrays which revealed an unstable ankle fracture as noted above. Given these findings, surgery was recommended to stablize the ankle. FINDINGS: Closed, comminuted, displaced medial and lateral malleoli fractures with fair bone quality. Comminuted lateral malleolus fracture with butterfly fragment. Syndesmosis was disrupted confirmed with lateral stress after fixing the by malleolar component. PROCEDURE: Following a thorough discussion of risks, benefits, and alternatives, consent was obtained and the right ankle was marked. The patient was brought to the operating room and placed supine on the operating table. Induction of anesthesia was undertaken. Appropriate time out was performed identifying proper patient, site and procedure. 2 g IV Ancef was administered within 1 hour of incision preoperatively. The right lower extremity was prepped and draped in the appropriate sterile fashion using ChloraPrep. The limb was exsanguinated and the tourniquet inflated. A longitudinal incision was made overlying the distal fibula. Sharp incision through skin and subcutaneous tissue was performed while protecting any crossing neurologic structures. The fracture was encountered, and cleared of interposed periosteum and fracture hematoma. The joint was entered, and thoroughly irrigated with normal saline. The fracture was reduced and temporarily held with reduction clamps. Two separate 2.7 mm interfragmentary screw were drilled, measured, and placed in lag technique. Following compression with the screws, a distal fibular 1/3 tubular locking plate was utilized in a neutralization lateral position. Distal and proximal holes were filled with locking and nonlocking screws. Following C-arm confirmation of appropriate plate position, and screw length, attention was turned to the medial fixation. A longitudinal incision was made overlying the medial malleolar fracture. Sharp incision through skin and blunt dissection to the subcutaneous tissue allowed us to protect the crossing neurovascular structures. The fracture was cleared of interposed periosteum/callus/hematoma. It was reduced, and secured with [2 guide pins placed for 2 cannulated screws perpendicular to the fracture plane. After confirming the guide pins to be extra-articular and in appropriate position, the bone was subsequently drilled, and partially threaded 4.0 mm cannulated screws were placed with excellent compression. The guide pins were removed and the fragment remained stable. After confirming appropriate reduction/positioning on C-arm fluoroscopic imaging, the ankle was tested for syndesmosis stability. External rotation was performed. Found to be unstable. Therefore, knotless tight rope device was utilized. The guide pin was drilled from lateral towards medial starting slightly posterior and directed slightly anterior. After confirming on C-arm for the pin alignment and position, it was drilled, the tight rope device passed, and secured. Final C-arm fluoroscopic images confirmed a stable ankle again after stressing. Thorough irrigation with normal saline was performed. Closure performed in layered fashion with 2-0 Stratafix for the deep fascia and subcutaneous closure as well as 4-0 Stratafix for subcuticular closure. Dressings were applied. Splint was applied. The patient was awoken from anesthesia and transferred to the PACU in stable condition. PLAN: 1. Elevate operative extremity. 2. Encouraged ice PRN. 3. Tylenol, ibuprofen, and/or Oxycodone for pain as needed. 4. Follow up with PA visit in 10-14 days with removal splint, transition to Cam boot, and initiate progressive weightbearing as tolerated. Then follow-up with me at the 6 week gabriel. Repeat x-rays right ankle-three views. 5. Toe touch weightbearing operative extremity at this time until 1st postop visit.
--- NOTE | 2024-09-07 12:14 | P.ANES_ITS ---
Anesthesia Charges Start Date/Time Anesthesia Start Date: 09/07/24 Anesthesia Start Time: 10:17 Stop Date/Time Anesthesia Stop Date: 09/07/24 Anesthesia Stop Time: 12:37 Coding CPT Codes CPT Codes: ANESTH LOWER LEG BONE SURG - 45991 ([id number]) P2 - PATIENT W/MILD SYST DISEASE, QK - POWER PLANT OPERATOR 2-4 CNCRNT ANES PROC, QX - PROGRAMMING SPECIALIST SVC W/ MD MED DIRECTION
--- NOTE | 2024-09-07 12:14 | W.ANESCHARGE ---
Anesthesia Charges Start Date/Time Anesthesia Start Date: 09/07/24 Anesthesia Start Time: 10:17 Stop Date/Time Anesthesia Stop Date: 09/07/24 Anesthesia Stop Time: 12:37 Coding CPT Codes CPT Codes: ANESTH LOWER LEG BONE SURG - 66166 ([id number]) P2 - PATIENT W/MILD SYST DISEASE, QK - BACK ROLL LATHE OPERATOR 2-4 CNCRNT ANES PROC, QX - SURVEILLANCE SYSTEMS ANALYST SVC W/ MD MED DIRECTION
[2024-09-07] MEDS: fentaNYL 100 MCG/2 ML inj 50 MCG IVP ×2 (12:45→13:08)
--- NOTE | 2024-09-07 12:55 | SUR.PHASEI ---
timeout completed for block of right ankle. Dr. Hong and Marlys RN present during timeout at 3703
--- NOTE | 2024-09-07 13:05 | SUR.PHASEI ---
block completed by Dr. Hong on right lower leg at 1256.
--- NOTE | 2024-09-07 13:13 | SUR.PHASEI ---
doppler FHT 137 in PACU Phase I
--- NOTE | 2024-09-07 13:16 | P.NB_ITS ---
Nerve Block Nerve Block Time Seen by Provider: 13:00 Date Seen: 09/07/24 Type of block requested by surgeon for post-operative analgesia: popliteal Side: right Time out performed: Yes Verification of patient name: Yes Verification of date of : Yes Site marking: site marked Name of person performing procedure: Hal Continuous monitoring Was continuous monitoring of O2 sat, B/P, brim welt sewing machine operator, recorded every 15 minutes?: Yes Procedure Checklist: sterile prep, needles and gloves Ultrasound guided. Images saved: Yes Medications given in 5ml increments after negative aspiration: Marcaine %: 0.25 mL: 20 Patient tolerated procedure well: Yes Additional comments: Needle noted adjacent to nerve Block Charges Block Charge (with Pro Fee): Sciatic Nerve Use of Ultrasound Machine for Block: Yes- US Guidance/pain block
--- NOTE | 2024-09-07 13:17 | P.NB_ITS ---
Nerve Block Nerve Block Time Seen by Provider: 13:00 Date Seen: 09/07/24 Type of block requested by surgeon for post-operative analgesia: adductor canal Side: right Time out performed: Yes Verification of patient name: Yes Verification of date of : Yes Site marking: site marked Name of person performing procedure: Hal Continuous monitoring Was continuous monitoring of O2 sat, B/P, media monitor, recorded every 15 minutes?: Yes Procedure Checklist: sterile prep, needles and gloves Ultrasound guided. Images saved: Yes Medications given in 5ml increments after negative aspiration: Marcaine %: 0.25 mL: 15 Needle gauge: 20 Patient tolerated procedure well: Yes Block Charges Block Charge (with Pro Fee): Femoral Nerve Use of Ultrasound Machine for Block: Yes- US Guidance/pain block
[2024-09-07] MEDS: ACETAMINOPHEN 325 MG TABLET PO (13:39)
[2024-09-07] MEDS: OXYCODONE 5 MG TABLET PO (13:40)
== END 2024-09-07 14:33 | disposition home or self-care (01) ==
LOC: OR 08:15
PROVIDERS: PCP Family Medicine; Visit Provider Orthopaedic Surgery Sports Medicine
PROC: (CPT 27814; principal; 2024-09-07 10:15)
DX: S82.841A Displaced bimalleolar fracture of right lower leg, initial encounter for closed fracture (principal); S93.431A Sprain of tibiofibular ligament of right ankle, initial encounter; G89.18 Other acute postprocedural pain
CPT/HCPCS: 27814; 27829; 01480; 64445; 64447; 73610; 76942; A9270; C1713; J0665; J0690; J1100; J2371; J2405; J2704; J3010; J7120

== ENCOUNTER 2024-10-04 10:04 | Outpatient (CLI) | payer BC, SELFPAY ==
--- NOTE | 2024-10-04 10:15 | CRLHL7_ITS ---
For Patients: As a result of the Century Cures Act, medical imaging exams and procedure reports are released immediately into your electronic medical record. You may view this report before your referring provider. If you have questions, please contact your health care provider. OB ULTRASOUND FOLLOW-UP/LIMITED, 10/04/2024 CLINICAL HISTORY: Maternal care for excessive growth. COMPARISON: None. TECHNIQUE: Real time stockton scale imaging of the fetus was performed. Transabdominal imaging performed. FINDINGS: LMP: 03/19/2024. JN by LMP: 12/24/2024. GA: 28 weeks 3 days. Gestation: Single. Cervix: Not visualized. Positioning: Transverse. Amniotic Fluid: 5.4 cm SDP. Placenta: Technique: TA. Dopplers: Heart Rate: 142 bpm. BIOMETRY: BPD: 7.9 cm, 31 weeks 6 days. >97% HC: 29.5 cm, 32 weeks 4 days. >97% AC: 25.2 cm, 29 weeks 2 days. 71% FL: 5.5 cm, 28 weeks 6 days. 49% FL/AC Ratio: 21.75% HC/AC Ratio: 1.17. EFW: 1437 g, 3 lb 3 oz. age by this US: 30 weeks 5 days. JN by this US: 12/08/2024. Percentile by JN: 83% IMPRESSION: 1. Sonographic gestational age 30 weeks 5 days and sonographic due date 12/08/2024. Sonographic age 16 days ahead of the clinical age. 2. Estimated weight 83rd percentile. Abdominal circumference 71st percentile. 3. BPD and HC both greater than 97th percentile. Jose Robertson M.D. Diagnostic Radiologist [email or web address] Transcribed: 1:23 pm DW/Dictated by: Jose Robertson MD @ 10/04/2024 12:05:00 PM (Electronically Signed)
--- OUTSIDE RECORDS SUMMARY | 2024-10-05 00:45 | XMS_ITS | Clinical Summary ---
Author Organization [facility] Address [address] [place] [address] Care Team Providers Care Academic Affairs Director Name Role Phone Unknown, Provider Primary Care Provider Unavaila ble Source Comments [facility],non-[facility] health Affiliates and Associated Physician Practices is amultiple site organization consisting of ambulatory clinics and hospital sitesin [place], [place], [place] and [place]. This disclosure is being madepursuant to the Care Everywhere program and may not contain all information available regarding this patient. Last updated 17.[facility] Allergies Active Allergy Reactions Criticality Noted Date [...] Comments Blood Pressure 112/70 05/16/2019 1:14 PM LINE INSTALLATION SUPERVISOR Pulse 76 11/02/2018 8:08 AM CDT Temperature 36.6 C (97.8 F) 11/02/2018 8:08 AM CDT Respiratory Rate - - Oxygen Saturation - - Inhaled Oxygen Concentration - - Weight 84.8 kg (187 lb) 05/16/2019 1:14 PM LINE INSTALLATION SUPERVISOR Height 172.7 cm (5' 8) 05/16/2019 1:14 PM LINE INSTALLATION SUPERVISOR Body Mass Index 28.43 05/16/2019 1:14 PM LINE INSTALLATION SUPERVISOR Plan of Treatment Health Maintenance Due Date [...] NEG NEG- 07/11/19 18 2:59 PM CDT [facility] High Risk HPV 18 NEG NEG- 07/11/19 18 2:59 PM CDT [facility] High Risk HPV Other Types NEG NEG- 07/10/2017 2:59 PM CDT [facility] Interpretation Human papillomavirus High Risk - 07/10/2017 2:59 PM CDT [facility] Comment: HPV types 16, 18, 31, 33, 35, 39, 45, 51, 52, 56, 58, 59, 66, and 68 DNA were undetectable or below the pre-set threshold. Testing [place] [address] Other (qualifier value) PART OF UTERINE CERVIX / Unknown 07/02/2017 4:39 PM CDT 07/02/2017 4:39 PM CDT Kirstie Causey PA-C LAB - MICROBIOLOGY ORDERA BLES Final Result [facility] [address] ([facility]) [address] [facility] ([place], [place] from Last 3 Months or Most Recently Relevant to Health Maintenance Insurance [employer] Commercial Man[facility] Address: [facility] [address] [place] [address] Care Teams Academic Affairs Director Relationship Specialty Start Date End Date Unknown, Provider PCP - General 04/20/24
--- OUTSIDE RECORDS SUMMARY | 2024-10-05 00:45 | XMS_ITS | Encounter Summary ---
Author Organization [facility] Address [address] [place] [id number] Care Team Providers Care Home Stager Name Role Phone Alec Rios MD Primary Care Provider + [phone] Encounter Details Date Type Department Care Team (Late st Contact Info) Description 06/08/2013 Emergency Room External to [facility], Provider EAR PAIN Social History Tobacco [...] as of this encounter Progress Notes * [facility], Provider - 06/08/2013 12:00 AM CST documented in this encounter Plan of Treatment Not on file documented as of this encounter Visit Diagnoses Not on filedocumented in this encounter Additional Health Concerns Infection Onset Date Last Indicated Resolved Time R/O COVID19 09/29/2019 09/29/2019 09/29/2019 8:17 PM CDT R/O COVID19 04/20/2020 04/20/2020 04/21/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
--- OUTSIDE RECORDS SUMMARY | 2024-10-05 00:46 | XMS_ITS | Clinical Summary ---
Author Organization [place] Address [address] [place] [address] Care Team Providers Care Truck Loader And Unloader Name Role Phone No Ref-Primary, Physician Primary [...] 2000 HEPATITIS C SCREENING 09/01/2003 HEPATITIS B VACCINE (1 of 3 - 19+ 3-dose series) 2004 PAP 2006 HPV VACCINE (2 - 3-dose series) 04/30/2007 04/02/2007 PHQ-2 (once per calendar year) 2024 DTAP/TDAP/TD VACCINE (3 - Td or Tdap) 08/27/2031 08/26/2021, 07/05/2009 ZOSTER VACCINE (1 of 2) 09/01/2035 MENINGITIS VACCINE Aged Out 10/10/2003 No longer eligible based on patient's age to complete this topic INFLUENZA VACCINE Completed 01/17/2024, , 02/14/2022, Additional history exists COVID-19 VACCINE Completed 01/19/2024, 02/2022, 09/29/2021, Additional history exists PNEUMOCOCCAL VACCINE: PEDIATRICS (0 to 5 YEARS) AND AT-RISK PATIENTS (6 to 49 YEARS) Aged Out No longer eligible based on patient's age to complete this topic Insurance [place] Care Teams Truck Loader And Unloader Relationship Specialty Start Date End Date No Ref-Primary, Physician PCP - General 05/15/21
--- OUTSIDE RECORDS SUMMARY | 2024-10-05 00:46 | XMS_ITS | Clinical Summary ---
Author Organization [facility] Address [address] [place] [address] Care Team Providers Care Diplomatic Officer Name Role Phone Alec Rios MD Primary Care Provider + [phone] Source Comments You are receiving this document [...] for each transition of care or referral. [facility] Active Allergy Reactions Criticality Noted Date [...] (Gardasil) 04/02/2007 Flu Vac (3+ yrs) 01/25/2008 P2C6-Xjuvckhcek 03/26/2009 HepB Ped/Adol (0-18 yrs) 11/12/2000,10/30/1997,0 09/25/1997 Influenza IIV4 (Quadrivalent) 0.5mL (57228) 06/2019 MMR 09/25/1997 MPSV4 (Menomune) 10/10/2003 Moderna [...] Comments CYTOLOGY (PAP) Routine 02/09/2020 8:58 AM WEATHER TEACHER Cervical cancer screening from Last 3 Months or Most Recently Relevant to Health Maintenance Results * PAP Test (02/09/2020 8:58 AM WEATHER TEACHER) Case Report Pap Case: [id number] Authorizing Provider: Emiliana Hinson APRN, Collected: 02/09/2020 0858 CN Ordering Location: [facility] Received: 02/09/2020 [facility] desktop publishing specialist First Screen: Maira Narvaez R, CT (ASCP) Specimen: Pap Test, Routine, Cervix/Endocervix 02/15/2020 10:16 AM [facility] Pap Specimen Adequacy Satisfactory for evaluation, endocervical/rosales sformation zone component absent. 02/15/2020 10:16 AM [facility] Pap Interpretation Negative for intraepithelial lesion or malignancy (NILM). 02/15/2020 10:16 AM [facility] at [address]6 WEATHER TEACHER Pap Disclaimer The Pap test is a screening test designed to aid in the detection of cervical cancer and its precursor lesions. It is not a diagnostic procedure and should not be used as the sole means of detecting cervical cancer. Both false-positive and false-negative results may occur. 02/15/2020 10:16 AM [facility] Gross Description The specimen is received in SurePath fixative and properly labeled. 1 Pap-stained SurePath slide is prepared. 02/15/2020 10:16 AM [facility] Embedded Images 0 10:16 AM [facility] Other Specimen Type ENTIRE ENDOCERVIX / Unknown 02/09/2020 8:58 AM WEATHER TEACHER 02/09/2020 10:15 AM WEATHER TEACHER Comment:LMP: No LMP recorded . us Emiliana Hinson RN LAB PATHOLOGY Final Result Performing Organization Address City/State/[facility] Co de Phone Number [address] [address], [facility] [phone] from Last 3 Months or Most Recently Relevant to Health Maintenance Insurance Dr [facility] [id number] [facility] [place] [address] [place] [address] BCBS OUT OF STATE Advance Directives * Full Code (Latest Code Status on File) Date Activated Date Inactivated Comments 08/11/2019 12:16 AM 08/11/2019 1:11 PM Care Teams Diplomatic Officer Relationship Specialty Start Date End Date Alec Rios MD [address] [place] [address] PCP - General 04/06/22
== END 2024-10-04 10:05 | disposition home or self-care (01) ==
LOC: US 10:04
PROVIDERS: PCP Family Medicine; Visit Provider Obstetrics & Gynecology
DX: O36.63X0 Maternal care for excessive fetal growth, third trimester, not applicable or unspecified (principal); Z3A.28 28 weeks gestation of pregnancy
CPT/HCPCS: 76816; 86592

== ENCOUNTER 2024-11-16 09:09 | Outpatient (CLI) | payer BC, SELFPAY ==
--- NOTE | 2024-11-16 09:15 | CRLHL7_ITS ---
For Patients: As a result of the Century Cures Act, medical imaging exams and procedure reports are released immediately into your electronic medical record. You may view this report before your referring provider. If you have questions, please contact your health care provider. OBSTETRICAL ULTRASOUND ??? FOLLOW-UP, 11/16/2024 INDICATION: Maternal care for excessive growth. CLINICAL HISTORY: LMP: 03/19/2024 JN by LMP: 12/24/2024 Gestational Age: 34 weeks 4 days COMPARISON: 10/04/2024, 08/24/2024, 07/27/2024 TECHNIQUE: Real-time stockton-scale transabdominal imaging of the fetus was performed. FINDINGS: Fetus: Single Cervix: Not visualized positioning: Vertex Amniotic Fluid: 3.9 cm SDP Placenta technique: Transabdominal Placenta position: Posterior heart rate: 139 bpm BIOMETRY: BPD: 9.1 cm, 36 weeks 5 days, 95.1% HC: 34.8 cm, 40 weeks 3 days, >97% AC: 32.9 cm, 36 weeks 6 days, 96.6% FL: 6.7 cm, 34 weeks 5 days, 43.6% FL/AC Ratio: 20.05% HC/AC ratio: 1.06 EFW: 2991 grams; 6 lbs. 10 oz. age by this ultrasound: 37 weeks 1 day JN by this ultrasound: 12/06/2024 Percentile by JN: 93.8% IMPRESSION: 1. Sonographic gestational age 37 weeks 1 day and sonographic due date 12/06/2024. Sonographic age is 18 days ahead of the clinical age. 2. Estimated weight is 94th percentile. Abdominal circumference is 97th percentile. Head circumference is greater than 97th percentile. JOSE MCGRAW M.D. Diagnostic Radiologist [email or web address] Transcribed: 11:[address]/Dictated by: Jose Mcgraw MD @ 11/16/2024 10:43:00 AM (Electronically Signed)
== END 2024-11-16 09:10 | disposition home or self-care (01) ==
LOC: US 09:10
PROVIDERS: PCP Family Medicine; Visit Provider Obstetrics & Gynecology
DX: O36.63X0 Maternal care for excessive fetal growth, third trimester, not applicable or unspecified (principal); Z3A.34 34 weeks gestation of pregnancy
CPT/HCPCS: 76816

== ENCOUNTER 2024-11-28 13:34 | Outpatient (CLI) | payer BC, SELFPAY ==
[2024-11-29 14:31] LABS: Strep B DNA Probe POSITIVE (Negative)
[2024-11-29 16:08] LABS: Strep B Susceptibility Needed? No
== END 2024-11-28 13:35 | disposition home or self-care (01) ==
LOC: NFLDREF 13:35
PROVIDERS: PCP Family Medicine; Visit Provider Obstetrics & Gynecology
DX: Z34.83 Encounter for supervision of other normal pregnancy, third trimester (principal)
CPT/HCPCS: 87081; 87653

== ENCOUNTER 2024-12-06 15:45 | Outpatient (RCR) | payer BC, SELFPAY | END 2024-12-07 15:11 | disposition home or self-care (01) | PROVIDERS: PCP Family Medicine; Visit Provider Physician Assistant Surgical | DX: Z48.89 Encounter for other specified surgical aftercare (principal); M25.571 Pain in right ankle and joints of right foot; Z51.89 Encounter for other specified aftercare | CPT/HCPCS: 97110; 97112; 97140; 97161; 97530 ==

== ENCOUNTER 2024-12-20 05:43 | Inpatient (IN) | payer BC, SELFPAY ==
[2024-12-20] VITALS (25 sets, daily range): BP systolic 91–110; BP diastolic 57–71; PULSE 68–93; RESP 16–18; TEMP 36.3–36.9; O2SAT 95–100; BMI 32.4
[2024-12-20 06:29] LABS: Hematocrit 37.9 % (33.0-51.0); Hemoglobin* 13.3 gm/dL (12.0-16.0); Immature Granulocytes Abs Auto 0.04 K/uL (0.00-0.30); Immature Granulocytes Pct Auto 0.5 %; Lymphocytes Absolute Auto 2.02 K/uL (0.90-2.90); Mean Corpuscular HGB Conc 35 gm/dL (32-36); Mean Corpuscular Hemoglobin 32 pg (26-34); Mean Corpuscular Volume 90 fL (80-100); RDW Coefficient of Variation % 12.5 % (11.5-15.5); Red Blood Count 4.22 m/uL (4.00-5.20); White Blood Count* 7.73 K/uL (4.50-11.00)
[2024-12-20 06:33] LABS: Slide Review Reflex No
--- NOTE | 2024-12-20 07:06 | W.PM.LDBA ---
Subjective History of Present Illness Date Seen: 12/20/24 Narrative: Patient is being admitted to Labor and Delivery for repeat . She is a 39 year old at 39 3/7 weeks' gestation. Her full history and physical was dictated by Dr. Pedro on 12/08. Please see this for details. Specific Issues/Plans Partner: Chad Son iMsael H&P: 12/08/24 Dr. Pedro # history of DVT Considered unprovoked; in the setting of oral contraceptive use and injury in 2019 Previous negative evaluation by hematology Lovenox 40 mg daily Hold Lovenox for at least 12 hours prior to planned and restart at least 12 hours after regional anesthesia; should consult with Anesthesiology to review timing of initiation of anticoagulation. I recommended last dose 24 hours before . Continue Lovenox through 6 weeks . # Ankle fracture at 23 weeks' gestation Increase Lovenox to BID dosing until back to usual mobility (discussed with MFHelio) Stop perioperatively around ankle surgery per instructions of orthopedics Right ankle bimalleolar ORIF and syndesmosis fixation/stabilization (09/07/2024) # Suspected LGA fetus 1 hr GTT: 133 Growth ultrasound at 28 and 34 weeks gestation; see below # AMA Genetic screening: normal [place], consistent with male Level 2 ultrasound: completed 08/24 # history of , arrest of descent and LOT Desires repeat with bilateral salpingectomy # GBS positive Imagin05/24/24: 10 1/7 weeks by US, 5 day discrepancy from LMP dating 07/27/24: 18 4/7 weeks. Level 2. Breech, posterior left lateral placenta without previa, MVP 4.2 cm, EFW 91.2%, AC 86.2%. Suboptimal 3 vessel view. Normal visualized anatomy. Repeat US with PACO Marmolejo in 4 weeks for completion of anatomy scan and repeat EFW: 08/24/2024: 22 weeks, 4 days. Cephalic, posterior placenta, three-vessel cord, SDP 5.57 cm, EFW 94.6%, AC 80.1%. Normal anatomy. 10/04/24: EFW 1437g 83%ile, AC 71%ile. FHR 142bpm. MVP 5.4cm. Transverse. 11/16/24: Vertex, 3.9 cm SDP, EFW 2991 grams; 6 lbs. 10 oz, 93.8%. AC 96.6%, BPD 95.1%, HC>97%, FL 43.6% Vaccinations: COVID: given 11/02/24 Flu: Please offer when avail. Tdap: 10/19/24 RSV: n/a Last pap: 02/10/2020, NIL/-HPV OB - Problem Based A/P Additional Plan (1) Previous delivery affecting : Problem details: desires sterilization Status: Acute Delivery/Labor/Induction Plan Plan: Section OB Exam Physical Exam Vital signs: Temp Pulse Resp BP Pulse Ox 97.9 F 86 16 110/70 95 12/20/24 06:01 12/20/24 06:01 12/20/24 06:01 12/20/24 06:01 12/20/24 06:01 Narrative: Physical exam: General: No acute distress Psych: Alert and oriented x3, full affect HEENT: Normocephalic, atraumatic Heart: Regular rate and rhythm, no murmur rub or gallop Lungs: Clear to auscultation bilaterally Abdomen: Soft, nontender, gravid, cephalic lie Lower extremities: No edema or erythema tracing: Baseline 120, accelerations present, no decelerations, moderate variability
[2024-12-20] MEDS: LACTATED RINGERS 1000 ML 1,000 ML 125 ML IV (07:12)
--- NOTE | 2024-12-20 07:50 | SUR.OPER ---
SURGEON DECLINES SENDING PLACENTA AT THIS TIME; WITNESSED BY FA AND OPERATIONS MANAGEMENT TRAINEE
--- NOTE | 2024-12-20 08:44 | P.OBPRC_ITS ---
Procedure Date of procedure: 12/20/24 Pre-op diagnosis: 39 3/7 weeks' gestation Previous Undesired fertility Post-op diagnosis: same Procedure Done: Global Will [facility] bill your pro fee for this procedure?: Yes Blood Loss Measurement Type: QBL (706) Bakri Used: No IV fluids (mL): 1,200 Urine Output (mL): 200 Surgeon: Shayy Pedro MD Anesthesia Type: Spinal Findings: 1. Male infant, cephalic OA presentation, Apgars of 8 and 9, weight 3930 g 2. Normal appearance of uterus, bilateral tubes and ovaries Procedure Name: Repeat low-transverse delivery with bilateral salpingectomy Procedure Description: Patient was taken to the operating room with IV running. She received cefazolin in preoperative prophylaxis. Spinal anesthesia had previously been administered. Tello catheter was inserted. She was prepped and draped in the usual sterile fashion. Anesthesia was tested and found to be adequate. A low-transverse skin incision was made with a scalpel and carried through to the underlying layer of fascia with the scalpel. The subcutaneous fat was dissected off the underlying fascia with Bovie. The fascia was nicked in the midline with a scalpel, and this incision was extended laterally with scissors. The rectus muscles were in the midline. Peritoneum was identified and entered bluntly. Bovie was used to widen this opening laterally. Pedrito O retractor was inserted and tightened down, providing excellent visualization of the lower uterine segment. The bladder reflection was found to be advanced along the lower uterine segment. A bladder flap was created with a combination of sharp and blunt dissection. Low-transverse uterine incision was made with a scalpel. Incision was widened bluntly. The infant's head was grasped through the hysterotomy and delivered with the help of fundal pressure. The remainder of the body delivered without incident. Cord was clamped and cut after 30 seconds. Infant was handed off to attending nurses. The placenta was delivered with gentle traction on the cord. The uterus was cleaned of all clots and debris with the dry lap pad. The hysterotomy was reapproximated with 0 Vicryl in a running, locked fashion. The uterus was exteriorized. The adnexa were examined and noted to be normal in appearance. Attention was turned to the left fallopian tube, which was grasped with 2 Umm clamps and elevated. The tube was divided from the cornua with the LigaSure exact device, and dissection was carried laterally to medially, ultimately amputating the blood supply in freeing the tube from the broad ligament. This procedure was repeated on the right side, moving laterally to medially. Hemostasis was assured on both sides. The cul-de-sac and gutters were cleansed with dampened laparotomy sponge, removing any further clots and debris. Uterus was returned to the abdomen. The Pedrito O retractor was removed. The hysterotomy was reexamined and Bovie was used on oozing vessels. The peritoneum was reapproximated with 2 0 Vicryl in a running fashion. The rectus muscles were examined and found to be hemostatic. The fascia was reapproximated with 0 Vicryl in a running fashion. Subcutaneous fat was irrigated and Bovie used on oozing vessels. The subcutaneous fat was reapproximated with 2 0 plain gut suture in an interrupted fashion. The skin was closed with a subcuticular stitch of 4-0 Monocryl. Surgical glue was applied above this. Patient tolerated procedure well was taken to recovery area in stable condition. Complications: None Pathology: specimen obtained, sent to pathology (Bilateral fallopian tubes) Surgery Debrief Performed: Yes Surgery Debrief Comment: Postoperative debrief was verbalized with OR staff, including a verification of pathology specimens to be sent as described above.
--- NOTE | 2024-12-20 08:51 | P.ANES_ITS ---
Anesthesia Charges Start Date/Time Anesthesia Start Date: 12/20/24 Anesthesia Start Time: 07:16 Stop Date/Time Anesthesia Stop Date: 12/20/24 Anesthesia Stop Time: 08:46 Coding CPT Codes CPT Codes: ANESTH CS DELIVERY - 29513 ([id number]) P2 - PATIENT W/MILD SYST DISEASE, QK - HEAD BUTLER 2-4 CNCRNT ANES PROC
--- NOTE | 2024-12-20 08:51 | W.ANESCHARGE ---
Anesthesia Charges Start Date/Time Anesthesia Start Date: 12/20/24 Anesthesia Start Time: 07:16 Stop Date/Time Anesthesia Stop Date: 12/20/24 Anesthesia Stop Time: 08:46 Coding CPT Codes CPT Codes: ANESTH CS DELIVERY - 95504 ([id number]) P2 - PATIENT W/MILD SYST DISEASE, QK - FORM TAMPER OPERATOR 2-4 CNCRNT ANES PROC
--- NOTE | 2024-12-20 08:53 | W.PM.NB ---
Nerve Block Nerve Block Time Seen by Provider: 08:35 Date Seen: 12/20/24 Type of block requested by surgeon for post-operative analgesia: TAP Side: bilateral Time out performed: Yes Verification of patient name: Yes Verification of date of : Yes Site marking: site marked Name of person performing procedure: Shasta Merritt Continuous monitoring Was continuous monitoring of O2 sat, B/P, court monitor, recorded every 15 minutes?: Yes Procedure Checklist: sterile prep, needles and gloves Ultrasound guided. Images saved: Yes Medications given in 5ml increments after negative aspiration: Marcaine %: 0.25 mL: 30 Needle gauge: 20 and Exparel mL: 10 Needle gauge: 20 Patient tolerated procedure well: Yes Block Charges Block Charge (with Pro Fee): TAP Bilateral Use of Ultrasound Machine for Block: Yes- US Guidance/pain block
--- NOTE | 2024-12-20 11:43 | P.ANES_ITS ---
Anesthesia Charges Start Date/Time Anesthesia Start Date: 12/20/24 Anesthesia Start Time: 07:16 Stop Date/Time Anesthesia Stop Date: 12/20/24 Anesthesia Stop Time: 08:46 Coding CPT Codes CPT Codes: ANESTH CS DELIVERY - 42670 ([id number]) QK - MEDICARE SALES REPRESENTATIVE 2-4 CNCRNT ANES PROC, QX - COMPLAINT INVESTIGATOR SVC W/ MD MED DIRECTION, P2 - PATIENT W/MILD SYST DISEASE
--- NOTE | 2024-12-20 11:43 | W.ANESCHARGE ---
Anesthesia Charges Start Date/Time Anesthesia Start Date: 12/20/24 Anesthesia Start Time: 07:16 Stop Date/Time Anesthesia Stop Date: 12/20/24 Anesthesia Stop Time: 08:46 Coding CPT Codes CPT Codes: ANESTH CS DELIVERY - 22859 ([id number]) QK - CANVAS SHRINKER 2-4 CNCRNT ANES PROC, QX - BELT MEASURER SVC W/ MD MED DIRECTION, P2 - PATIENT W/MILD SYST DISEASE
[2024-12-20] MEDS: ACETAMINOPHEN 500 MG TABLET 1000 MG PO ×2 (12:24→18:30)
--- NOTE | 2024-12-20 17:27 | PC.NURSE ---
This RN present at bedside for entirety of PACU Phase I with Samantha Nuno RN.
[2024-12-20] MEDS: ENOXAPARIN 40 MG/0.4 ML INJ SUBCUT (18:26)
[2024-12-20] MEDS: DOCUSATE SODIUM 100 MG CAPSULE PO (20:21)
[2024-12-21] VITALS (7 sets, daily range): BP systolic 97–112; BP diastolic 63–76; PULSE 71–85; RESP 16–18; TEMP 36.4; O2SAT 95–198
[2024-12-21] MEDS: ACETAMINOPHEN 500 MG TABLET 1000 MG PO ×3 (00:15→16:46)
[2024-12-21 05:59] LABS: Hemoglobin* 10.4 gm/dL (12.0-16.0)
--- NOTE | 2024-12-21 07:54 | P.OBPN_ITS ---
OB - PN:Subj Subjective Date Seen: 12/21/24 Narrative: Rosalinda is a 39 y.o. G 2 P 1 who was admitted to L & D for repeat c/s with bilateral salpingectomy. ?She had a section that was uncomplicated. The patient feels well. ?The pain is well controlled with current medications. ?She has no new complaints. ?She is breast feeding and reports things are going well. the patient has done well.? Vitals have been stable.? She has remained afebrile.? Has a good appetite, is tolerating a general diet. ?She is voiding without difficulty.? She is passing gas and has not had a bowel movement.? She is ambulating and denies any dizziness.?Her right foot is visibly more swollen than left but she had broken this foot in September and had surgery at that time. It has been more swollen since that time. She was able to stop wearing a boot within the last few weeks. Has small amount of rubra lochia. She has a bilateral salpingectomy for prevention. Problems: Hx of DVT, will remain on Lovenox until 6 weeks OB - PN: Obj Exam Physical Exam: Vital signs: Temp Pulse Resp BP Pulse Ox O2 Del Method 98.2 F 82 18 98/63 95 Room Air 12/20/24 20:12 12/21/24 04:30 12/21/24 04:30 12/21/24 04:30 12/21/24 04:30 12/21/24 04:30 Narrative: GENERAL APPEARANCE:? normal affect, alert, no distress MOOD:? appropriate CHEST:? clear to auscultation HEART:? regular rate and rhythm ABDOMEN:? soft, non-tender the uterine fundus is At Umbilicus, Midline and is appropriate for the stage of recovery. EXTREMITIES:? normal and no edema of left foot, +2 edema of right foot [Incision]: [Healing well, no surrounding erythema, abnormal induration or discharge] OB - PN: Obj Data Labs Labs: Laboratory Results - last 24 hr 12/21/24 05:45 Hgb 10.4 L OB - PN: A/P Delivery Assessment and Plan (1) care and examination immediately after delivery: Status: Acute (2) Previous delivery affecting : Problem details: desires sterilization Status: Acute (3) Lactating mother: Status: Acute (4) History of DVT (deep vein thrombosis): Problem details: Taking 40 mg subcutaneous injection enoxaparin daily Status: Acute Plan day: 1 Plan: routine care Comments: Anticipate discharge home tomorrow? Routine postop care , may see if needed? Hgb 10.4. ? Hx of DVT?with plan of continue Lovenox 40 mg daily through 6 weeks . For pain control of perineum, breast and pelvic pain, take 600 mg Ibuprofen every 6 hours as needed by mouth or 1000 mg acetaminophen (Tylenol) every 6 hours by mouth as needed. You can alternate these so you are taking something e very 3 hours as needed. A heating pad can also be used for your abdomen or breasts. You may also take docusate sodium up to twice daily to soften your stools and help to prevent constipation. You may wean off of it when your stools return to normal.?
[2024-12-21] MEDS: DOCUSATE SODIUM 100 MG CAPSULE PO (08:01)
[2024-12-21] MEDS: ENOXAPARIN 40 MG/0.4 ML INJ SUBCUT (18:35)
[2024-12-21] MEDS: IBUPROFEN 600 MG TABLET PO (20:57)
[2024-12-22 01:38] VITALS: BP 106/73; PULSE 75; RESP 16; TEMP 36.6; O2SAT 98
[2024-12-22] MEDS: IBUPROFEN 600 MG TABLET PO ×2 (04:54→10:42)
--- NOTE | 2024-12-22 07:43 | P.DS_ITS ---
DS: Providers Provider Date Seen: 12/22/24 Date of admission: 12/20/24 05:43 Primary care physician: Moo Christensen MD Admitting Clinician: Shayy Pedro MD Attending Physician on discharge: Shayy Pedro MD Date of Discharge: 12/22/24 DS: Diagnosis Discharge Diagnosis (1) Lactating mother: Status: Acute (2) care and examination immediately after delivery: Status: Acute (3) Status post bilateral salpingectomy: Status: Acute Exam Narrative: Exam Narrative: GENERAL APPEARANCE:? normal affect, alert, no distress? MOOD:? appropriate? CHEST:? clear to auscultation and percussion? HEART:? regular rate and rhythm? BREASTS: soft, nontender, no erythema, nipples intact? ABDOMEN:? soft, non-tender the uterine fundus is U/2 and is appropriate for the stage of recovery. Incision well approximated without erythema, drainage, or edema. Some bruising noted inferior to the incision.? EXTREMITIES:? normal and no edema? Const: Vital Signs, click to edit/add: Vital Signs - 24 hr 12/21/24 08:19 12/21/24 08:19 12/21/24 11:26 Temperature 97.5 F L 97.5 F L Pulse Rate [Pulse Oximeter] 85 71 Respiratory Rate 18 16 16 Blood Pressure [Le ft Arm] 102/67 Blood Pressure [Ri ght Arm] 97/64 Pulse Oximetry 99 100 Oxygen Delivery Me thod Room Air Room Air 12/21/24 17:56 12/21/24 21:30 12/22/24 01:38 Temperature 97.6 F 97.6 F 97.9 F Pulse Rate [Pulse Oximeter] 85 85 75 Respiratory Rate 16 16 16 Blood Pressure [Le ft Arm] Blood Pressure [Ri ght Arm] 112/76 107/65 106/73 Pulse Oximetry 100 198 H 98 Oxygen Delivery Me thod Room Air Room Air Room Air Documenting provider has reviewed patient's vital signs: yes OB - DS: Summary Hospital Course Hospital Course: Rosalinda is a 39 y.o. G 2 P 1 who was admitted to [facility] for repeat section. ?She had a section that was uncomplicated. The patient feels well. ?The pain is well controlled with current medications. ?She has no new complaints. ?She is breast feeding and reports things are going well. the patient has done well.? Vitals have been stable.? She has remained afebrile.? Has a good appetite, is tolerating a general diet. ?She is voiding without difficulty.? She is passing gas and has not had a bowel movement.? She is ambulating and denies any dizziness.? Has small amount of rubra lochia. She had a salpingectomy for prevention. Problems: none Peripartum Data Infant delivery method: Repeat Section Procedures: Procedures Operation Date: 12/20/24 07:15 Actual Procedure Side Surgeon p Repeat with Bilateral Salpingectomy Shayy Pedro MD complications: none Gender: Male Discharge Plan: Home Status at Discharge Functional status at discharge: independent ambulation Overall status at discharge: patient is progressing back to baseline Time Spent with Patient Time attestation: Total time spent providing and/or coordinating discharge services: Discharge Plan Discharge Disposition: Home, Self-Care Date of Admission: 12/20/24 05:43 Attending Provider on Discharge: Michelle Lopez Primary Care Provider: Moo Christensen Condition: Stable Anticipated Discharge Date/Time: 12/22/24 10:00 Discharge Medications: New enoxaparin 40 mg/0.4 mL Syringe 40 mg subcut Q24H 42 Days Qty: 16.8 0RF Rx Instructions: Take for 6 weeks . oxycodone 5 mg Tablet 5 - 10 mg PO Q4H PRN (Reason: Pain) Qty: 5 0RF Continued [id number] 3 fatty no.1 27-1-300 mg capsule 1 cap PO DAILY calcium carb,lactat-vitamin D3 200 mg-6.25 mcg (250 unit) tablet 1 tab PO DAILY magnesium 200 mg tablet 200 mg PO QDAY Discontinued enoxaparin 40 mg/0.4 mL syringe 40 mg subcut QDAY Qty: 4 7RF Discharge Orders: Discharge Order (Routine); Ordered 12/22/24 Ordered By: Michelle Lopez Patient Education: OB Over the Counter Medication Information, OB /Breast Feeding Additional Instructions: Discharge instructions were reviewed with the patient including signs and symptoms of infection and home going medications Lifting Restrictions: 20 pounds for 6 weeks No not submerge incision under water X 2 weeks? Nothing vaginally for 6 weeks: no tampons or intercourse Do not drive while taking narcotic pain medication(s) Off Work or School for 8 weeks Symptoms to report to doctor: * Bleeding that saturates more than one pad per hour * Passing clots larger than the size of a golf ball * Pain not relieved by prescribed medication * Fever above 100.4 degrees Fahrenheit * A foul vaginal odor * Difficulty in emotions, mood, and functions * Thoughts of hurting yourself and/or * Painful, reddened area in your breast * Any drainage, redness, or tenderness in your IV/epidural site * Severe headache that doesn't improve after taking medications * Changes in vision, including temporary loss of vision, blurred vision, and/or light sensitivity * Upper abdominal pain (usually under ribs on the right side) * Decrease in urination or painful, frequent urinating * Chest pain * Shortness of breath * Tenderness or pain with redness and/swelling in the calf(s) of your leg 2-week visit: incision check, discuss infant feeding concerns, review control options and screen for anxiety/depression. 6-week visit for an annual exam. consultation services are available to all mothers and babies for the first year after delivery.? To make an appointment, please call [phone]. Activity Level: Activity as Tolerated Discharge Diet: Regular Follow Up Appointments: [facility] [Provider Group] Forms: Patient Belongings, MyHealth Info Instructions
[2024-12-22] MEDS: ACETAMINOPHEN 500 MG TABLET 1000 MG PO (07:45)
[2024-12-22] MEDS: DOCUSATE SODIUM 100 MG CAPSULE PO (07:46)
[2024-12-22 07:48] VITALS: BP 116/68; PULSE 77; RESP 16; TEMP 36.4; O2SAT 100
== END 2024-12-22 11:35 | disposition home or self-care (01) | DRG 540 ==
PROVIDERS: Admitting Provider Obstetrics & Gynecology; PCP Family Medicine; Visit Provider Obstetrics & Gynecology
PROC: 10D00Z1 Extraction of Products of Conception, Low, Open Approach (ICD-10-PCS; CPT 59514; principal; 2024-12-20 07:15)
DX: O34.211 Maternal care for low transverse scar from previous cesarean delivery (principal); O99.824 Streptococcus B carrier state complicating childbirth; G89.18 Other acute postprocedural pain; Z30.2 Encounter for sterilization; Z86.718 Personal history of other venous thrombosis and embolism; Z79.01 Long term (current) use of anticoagulants; Z3A.39 39 weeks gestation of pregnancy; Z37.0 Single live birth
CPT/HCPCS: 01961; 36415; 64488; 76942; 85018; 85025; 86592; 86850; 86900; 86901; A4314; A9270; J0665; J0666; J0690; J1100; J1650; J1885; J2274; J2371; J2405; J2590; J7120

== ENCOUNTER 2024-12-30 12:26 | Outpatient (CLI) | payer BC, SELFPAY | END 2024-12-30 12:27 | disposition home or self-care (01) | LOC: NFLDUCREF 12:27 | PROVIDERS: PCP Family Medicine; Visit Provider Nurse Practitioner Family | DX: R50.9 Fever, unspecified (principal) | CPT/HCPCS: 87086 ==

== ENCOUNTER 2025-02-01 15:27 | Outpatient (CLI) | payer BC, SELFPAY ==
[2025-02-04 05:25] LABS: HPV Source Cervical
[2025-02-07 09:58] LABS: Pap Test Digital Imaging Done
== END 2025-02-01 15:28 | disposition home or self-care (01) ==
PROVIDERS: PCP Family Medicine; Visit Provider Registered Nurse
DX: Z12.4 Encounter for screening for malignant neoplasm of cervix (principal)
CPT/HCPCS: 87624; 87625; 88141; 88142; 88175